=== PATIENT | male | born 1955 | race Caucasian/White ===

== ENCOUNTER → 2016-11-23 | Outpatient (CLI) | payer OTHER ==
[~2016-11-23] MED LIST: AMLO10TAB; AMLO5TAB2 PO; ATEN25TA; AUGM875T27 PO; BENA20TA2; BIAX1TAB PO; BISO5TAB5 PO; CARA1TAB2 PO; FURO40TA2; HYDR-3713 PO; ISOVUE-370 76% 100ML VIAL (Q9967) As Ordered ONE; OMEP40CA2 PO; TYLE167L PO
--- NOTE | 2016-11-23 16:05 | REP ---
CT study of the chest with IV contrast: History: Kidney malignancy. CT contrast dose: 50 mL of Isovue-370 is administered intravenously by auto injector. Comparison chest CT study 11/18/2015. CT findings: Lung window settings demonstrate mild linear scarring in the lingula and right middle lobe at the bases. There is some minimal scarring in the lower lobes as well. These findings are unchanged from the comparison study. No pulmonary nodule or mass lesion is seen. There is vascular calcification including the left coronary artery. No mediastinal mass or adenopathy is observed. Scattered normal-sized mediastinal lymph nodes are noted unchanged. No extrathoracic mass or adenopathy is seen. Bone window settings show no bony destructive lesion. There are degenerative spurs along the right anterior margin of the thoracic spine as before. Impression: No active disease. Stable bibasilar linear fibrotic changes. Signed by Eamon Díaz MD 11/23/2016 07:18 P
--- NOTE | 2016-11-23 16:13 | REP ---
CT abdomen pelvis without and with IV contrast: Without oral contrast. History: Kidney cancer. Comparison CT study is from 11/04/2015 and 11/18/2015. CT contrast dose: 50 mL of Isovue [address] findings: Preliminary digital activity aide radiograph demonstrates an unremarkable bowel gas pattern. There is a right flank hernia as before. The lung bases are clear. There are geographic areas of low density in the right lobe of the liver consistent with fatty infiltration. No focal liver mass lesion is seen. The gallbladder and pancreas are unremarkable. No adrenal lesion is seen on the left. I do not see the right adrenal. The patient is status post right nephrectomy. No recurrent nephrectomy bed mass is seen. There is a stable 12 mm lymph node just medial to the head of the pancreas unchanged. There is a left periaortic lymph node below the level of the left renal vascular pedicle that measures 11 x 20 mm today, previously 11 x 18 mm. This change is equivocal. There are two somewhat prominent periportal lymph nodes at little above this which are stable from the 2012 prior study. No definitely progressed lymph node is seen. Peripancreatic soft tissues are no longer edematous. There is an accessory splenule at this at the tail of the pancreas as before. No hydronephrosis is noted on the left. There is a cyst projecting from the periphery of the left kidney measuring 2.5 cm in diameter unchanged. This is a little larger than it was in 2012. The abdominal aorta is quite tortuous and there is a distal abdominal aortic aneurysm which measures 3.5 cm in greatest AP dimension. Previous dimension was 3.3 cm. No periaortic disease is seen. There is a left common iliac artery aneurysm again noted this measures 3.9 cm in AP dimension, previously 3.6 cm. A right common iliac artery aneurysm is seen measuring 3.0 cm in AP today, previously 2.7 cm. Small and large intestinal bowel loops are normal in the abdomen and pelvis except for left colonic diverticulosis and the small bowel loops which are herniated through the right flank hernia. No bony destructive lesion is seen. There are advanced degenerative disc changes in the lumbar spine and lumbar scoliosis again noted. Impression: 1. Status post right nephrectomy. 2. Right flank hernia with unobstructed loops of small bowel. 3. Fatty infiltration of the liver. 4. Retroperitoneal and periportal lymph nodes, one of which is very slightly more prominent today, 20 x 11 mm as opposed to 17 x 11 mm previously. 5. 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 Signed by Eamon Díaz MD 11/23/2016 07:19 P
== END ==
LOC: M RAD 10:23
PROVIDERS: ATTEND Urology
DX: K76.0 Fatty (change of) liver, not elsewhere classified (principal); I72.3 Aneurysm of iliac artery; Z90.5 Acquired absence of kidney; Z85.828 Personal history of other malignant neoplasm of skin
CPT/HCPCS: 71260; 74178; Q9967

== ENCOUNTER → 2017-01-13 | Outpatient (CLI) | payer OTHER ==
[~2017-01-13] MED LIST changes: -ISOVUE-370 76% 100ML VIAL (Q9967) As Ordered ONE
--- NOTE | 2017-01-18 09:20 | REP ---
PET/CT: HISTORY: Restaging kidney cancer. Recent abdominal CT showed a slowly enlarging left periaortic retroperitoneal node. COMPARISONS: Comparison PET/CT study is from February 14, 2015. Comparison CT of the abdomen and chest is from November 23, 2016. The patient is status post right nephrectomy. TECHNIQUE: 61 minutes following the intravenous injection of a 9.5 mCi dose of F-18 FDG, three-dimensional PET scintigraphy is acquired from the skull base to the proximal thighs. Triplanar noncontrast CT scanning is acquired through the same anatomic range for attenuation correction, and image registration with scan parameters optimized to minimize radiation exposure to the patient. PET scintigraphy and CT datasets were fused and displayed on a workstation with multiplanar and projection display capability. PET/CT FINDINGS: The left periaortic retroperitoneal lymph node seen on the CT study from November 23, 2016 shows no abnormal FDG accumulation. Maximum SUV value is 0.9. No abnormal hypermetabolic uptake is seen in any of the other stable lymph nodes in the retroperitoneum and celiac axis region of the abdomen. No abnormal hypermetabolic abdominal or pelvic uptake is seen. Aortobi-iliac aneurysm is again noted. Left renal cyst and right flank unobstructed hernia again noted. There is no abnormal hypermetabolic uptake in the liver. No abnormal hypermetabolic uptake is seen within the thorax. Head and neck soft tissues are unremarkable. No abnormal skeletal uptake is seen. IMPRESSION: No abnormal hypermetabolic uptake. CT followup is advised. Signed by Eamon Díaz MD 01/18/2017 10:54 A
== END ==
LOC: M PLARAD 09:38
PROVIDERS: ATTEND Urology
DX: Z85.528 Personal history of other malignant neoplasm of kidney (principal)
CPT/HCPCS: 78816; A9552

== ENCOUNTER → 2018-01-17 | Outpatient (CLI) | payer OTHER | LOC: M RAD 08:51 | DX: K45.8 Other specified abdominal hernia without obstruction or gangrene (principal); R93.5 Abnormal findings on diagnostic imaging of other abdominal regions, including retroperitoneum | CPT/HCPCS: 74176 ==

== ENCOUNTER 2018-12-10 05:30 | Emergency (ER) | payer OTHER ==
[~2018-12-10] VITALS: Ht 175.3 cm; Wt 123.6 kg
[~2018-12-10 05:30] MED LIST changes: -AMLO5TAB2 PO; +AMLO5TAB6 PO; -AUGM875T27 PO; +AUGM875T28 PO; -BIAX1TAB PO; +BIAX500T14 PO; -CARA1TAB2 PO; +CARA1TAB6 PO
[2018-12-10] MEDS ORDERED: PEPT262T2 PO (05:53)
[2018-12-10] MEDS ORDERED: TUMS500C PO (05:53)
[2018-12-10 06:14] LABS: BASO # 0.1 10^3/uL (0.0-0.2); BASO % 0.4 % (0.0-1.0); EOS # 0.1 10^3/uL (0.0-0.50); EOS % 0.6 % (0.0-3.0); HEMATOCRIT 48.2 % (42.0-52.0); HEMOGLOBIN 15.9 g/dl (13.5-17.5); LYMPH # 1.1 10^3/uL (1.5-4.5); LYMPH % 9.4 % (24.0-44.0); MEAN CORPUSCULAR HEMOGLOBIN 29.7 pg (27.0-33.0); MEAN CORPUSCULAR VOLUME 89.9 fl (80.0-96.0); MONO # 0.5 10^3/uL (0.0-0.8); MONO % 4.2 % (0.0-5.0); NEUTROPHILS # 10.1 10^3/uL (1.8-7.7); NEUTROPHILS % 84.9 % (36.0-66.0); PLATELET COUNT, AUTOMATED 256 10^3/uL (150-450); RED BLOOD COUNT 5.36 10^6/uL (4.30-6.10); WHITE BLOOD COUNT 11.9 10^3/uL (4.0-10.0)
[2018-12-10 06:33] LABS: ALBUMIN 3.8 GM/DL (3.2-5.2); ALT/SGPT 28 U/L (12-78); BILIRUBIN,DIRECT 0.2 MG/DL (0.0-0.2); BILIRUBIN,TOTAL 1.1 MG/DL (0.2-1.0); BLOOD UREA NITROGEN 23 MG/DL (7-18); CALCIUM LEVEL 10.7 MG/DL (8.8-10.2); CARBON DIOXIDE LEVEL 26 MEQ/L (21-32); CHLORIDE LEVEL 102 MEQ/L (98-107); CPK CREATINE PHOSPHOKINASE 102 U/L (39-308); CREATININE FOR GFR 1.55 MG/DL (0.70-1.30); GLOMERULAR FILTRATION RATE 48.8 (>49); GLUCOSE, FASTING 136 MG/DL (70-100); LIPASE 226 U/L (73-393); MB/CK RELATIVE INDEX 1.47 (< OR =4); POTASSIUM SERUM 3.9 MEQ/L (3.5-5.1); SODIUM LEVEL 138 MEQ/L (136-145); TOTAL PROTEIN 8.6 GM/DL (6.4-8.2); TROPONIN I < 0.02 NG/ML (< 0.10)
[2018-12-10] MEDS ORDERED: PANTOPRAZOLE 40MG INJ (PROTONIX) (C9113) IV ONE (06:45)
[2018-12-10] MEDS ORDERED: GASTROGRAFIN SOLUTION 30ML (Q9963) As Ordered ONE (06:46)
[2018-12-10] MEDS ORDERED: ONDANSETRON 4MG/2ML VIAL (J2405) As Ordered ONE (06:55)
[2018-12-10] MEDS: GASTROGRAFIN SOLUTION 30ML PO SCH ×3 (06:56→07:26)
[2018-12-10] MEDS ORDERED: ONDANSETRON 4MG/2ML VIAL (J2405) IV ONE (07:00)
--- NOTE | 2018-12-10 08:13 | REP ---
Clinical: Chest pain . Comparison: 10/30/2015 . Findings: The mediastinum and cardiac silhouette are stable and within normal limits for portable technique. The lung whitfield are clear without acute consolidation, effusion, or pneumothorax. Skeletal structures are intact. Impression: No acute cardiopulmonary process appreciated. Electronically Signed by Rodolfo Oshea MD 12/10/2018 08:03 A
--- NOTE | 2018-12-10 08:47 | REP ---
Clinical: Epigastric pain. Technique: Axial images from the lung bases to the pubic symphysis using oral contrast material with coronal and sagittal re-formations. Comparison: 01/17/2018 Findings: Subtle peripancreatic inflammatory stranding surrounds the pancreatic head/uncinate region and adjacent duodenum with adjacent reactive adenopathy suggesting acute pancreatitis and correlation is recommended. Liver, spleen, left adrenal gland and kidney are relatively normal. The patient appears to be status post total right nephrectomy. Cholelithiasis noted without evidence for acute cholecystitis. The enteric system is without obstruction or acute inflammatory process. Scattered colonic and sigmoid diverticula noted without acute diverticulitis. Pelvis demonstrates normal bladder and age appropriate prostate/seminal vesicles. No ascites. No free air. Stable aneurysmal dilatation of the distal abdominal aorta measuring 4.2 cm maximal diameter and bilateral iliac arteries measuring 4.2 cm diameter on the left and 3.4 cm on the right. Impression: 1. Peripancreatic stranding surrounding the pancreatic head/uncinate process with reactive adenopathy suggest acute pancreatitis. No fluid, abscess or peripancreatic pseudocyst. 2. Cholelithiasis. 3. Chronic distal abdominal aortic aneurysm and aneurysmal dilatation to the bilateral internal iliac arteries. Electronically Signed by Rodolfo Oshea MD 12/10/2018 08:39 A
--- NOTE | 2018-12-10 09:32 | ECGEPIP ---
Stationary ECG Study [facility] - ED Test Date: 2018-12-10 Pat Name: ANNE-MARIE SAWANT Department: Room: - Gender: M Primary Care Md: LUKAS : 1955 Requested By: Morgan Sommers Order Number: [id number] Reading MD: Jane Chacon Measurements Intervals [place] Rate: 84 P: -7 AL: 203 QRS: -39 QRSD: 93 T: 75 QT: 368 QTc: 437 Interpretive Statements SINUS RHYTHM MARKED LEFT AXIS DEVIATION NSTTW ABNORMALITY LEFT VENTRICULAR HYPERTROPHY AND ST-T CHANGE INCREASED RATE 10/30/15 Electronically Signed On 12-10-2018 9:32:46 EDT by Jane Chacon
--- NOTE | 2018-12-10 10:08 | REP ---
Clinical: Acute abdominal pain. Pancreatitis. Technique: Rojas scale ultrasound using curved array transducer. Findings: The liver demonstrates fatty infiltration without focal hepatic lesion identified. The pancreas is incompletely evaluated due to interposed bowel gas but visualized portions appear relatively normal. Gallbladder demonstrates multiple gallstones without wall thickening or pericholecystic fluid and no sonographic Sr's sign to suggest acute cholecystitis. Common bile duct is upper limits of normal at 7 mm diameter. The patient is known to be status post right nephrectomy. No ascites. Impression: Cholelithiasis without sonographic evidence for acute cholecystitis. Prior right nephrectomy. Fatty infiltration to the liver. Electronically Signed by Rodolfo Oshea MD 12/10/2018 10:00 A
[2018-12-10 10:37] VITALS: BP 174/108
[2018-12-13] MEDS ORDERED: ASPI-164 PO (16:39)
== END 2018-12-10 10:56 | disposition home or self-care (01) ==
LOC: M ED 05:30
DX: K85.90 Acute pancreatitis without necrosis or infection, unspecified (principal); I71.4 Abdominal aortic aneurysm, without rupture; I10 Essential (primary) hypertension; E66.9 Obesity, unspecified; K27.9 Peptic ulcer, site unspecified, unspecified as acute or chronic, without hemorrhage or perforation; K76.0 Fatty (change of) liver, not elsewhere classified; K80.20 Calculus of gallbladder without cholecystitis without obstruction; Z85.528 Personal history of other malignant neoplasm of kidney; Z79.82 Long term (current) use of aspirin; Z79.899 Other long term (current) drug therapy
CPT/HCPCS: 71045; 74176; 76705; 80048; 80076; 82550; 82553; 83690; 84484; 85025; 93005; 93041; 94760; 96374; 96375; 99285; C9113; J2405

== ENCOUNTER 2018-12-11 08:37 | Emergency (ER) | payer OTHER ==
[~2018-12-11] VITALS: Ht 175.3 cm; Wt 123.6 kg
[~2018-12-11 08:37] MED LIST changes: +PEPT262T2 PO; +TUMS500C PO
[2018-12-11 09:45] LABS: HEMATOCRIT 48.5 % (42.0-52.0); HEMOGLOBIN 15.6 g/dl (13.5-17.5); MEAN CORPUSCULAR HGB CONC 32.2 g/dl (32.0-36.5); MEAN CORPUSCULAR VOLUME 93.3 fl (80.0-96.0); PLATELET COUNT, AUTOMATED 243 10^3/uL (150-450)
[2018-12-11 10:14] LABS: ALBUMIN 3.7 GM/DL (3.2-5.2); BILIRUBIN,DIRECT 0.3 MG/DL (0.0-0.2); BILIRUBIN,TOTAL 1.9 MG/DL (0.2-1.0); CREATININE FOR GFR 2.04 MG/DL (0.70-1.30); GLOMERULAR FILTRATION RATE 35.5 (>49); POTASSIUM SERUM 4.5 MEQ/L (3.5-5.1); TOTAL PROTEIN 7.4 GM/DL (6.4-8.2)
[2018-12-11 10:54] VITALS: BP 109/69
[2018-12-13] MEDS ORDERED: ASPI-164 PO (16:39)
== END 2018-12-11 10:59 | disposition home or self-care (01) ==
LOC: M ED 08:37
DX: I71.4 Abdominal aortic aneurysm, without rupture (principal); K80.70 Calculus of gallbladder and bile duct without cholecystitis without obstruction; K85.90 Acute pancreatitis without necrosis or infection, unspecified; I10 Essential (primary) hypertension; Z79.899 Other long term (current) drug therapy; Z87.19 Personal history of other diseases of the digestive system; Z85.528 Personal history of other malignant neoplasm of kidney; Z90.5 Acquired absence of kidney

== ENCOUNTER → 2018-12-12 | Outpatient (REF) | payer OTHER ==
[~2018-12-12] MED LIST changes: +AMLO10TA5 PO; +SM A1TAB PO
== END ==
LOC: M LAB REF 12:13
PROVIDERS: ATTEND Internal Medicine
DX: R10.84 Generalized abdominal pain (principal)

== ENCOUNTER 2018-12-13 16:31 | Inpatient (IN) | payer OTHER ==
[~2018-12-13] VITALS: Ht 175.3 cm; Wt 108.0 kg
[~2018-12-13 16:31] MED LIST changes: -AMLO10TA5 PO; -SM A1TAB PO
[2018-12-13] MEDS ORDERED: SM A1TAB PO (16:39)
[2018-12-13] MEDS ORDERED: NS 1,000 ML IV ONE (17:00)
[2018-12-13 17:33] LABS: BASO # 0.1 10^3/uL (0.0-0.2); BASO % 0.5 % (0.0-1.0); EOS # 0.1 10^3/uL (0.0-0.50); EOS % 0.8 % (0.0-3.0); HEMATOCRIT 43.2 % (42.0-52.0); LYMPH # 1.4 10^3/uL (1.5-4.5); LYMPH % 10.7 % (24.0-44.0); MEAN CORPUSCULAR HEMOGLOBIN 29.9 pg (27.0-33.0); MEAN CORPUSCULAR HGB CONC 32.4 g/dl (32.0-36.5); MEAN CORPUSCULAR VOLUME 92.3 fl (80.0-96.0); MONO # 1.1 10^3/uL (0.0-0.8); MONO % 8.3 % (0.0-5.0); NEUTROPHILS # 10.1 10^3/uL (1.8-7.7); NEUTROPHILS % 79.2 % (36.0-66.0); PLATELET COUNT, AUTOMATED 216 10^3/uL (150-450); RED BLOOD COUNT 4.68 10^6/uL (4.30-6.10); WHITE BLOOD COUNT 12.8 10^3/uL (4.0-10.0)
[2018-12-13 17:53] LABS: ALBUMIN 3.6 GM/DL (3.2-5.2); BILIRUBIN,DIRECT 0.4 MG/DL (0.0-0.2); BILIRUBIN,TOTAL 1.7 MG/DL (0.2-1.0); CALCIUM LEVEL 9.3 MG/DL (8.8-10.2); CREATININE FOR GFR 1.88 MG/DL (0.70-1.30); TOTAL PROTEIN 7.3 GM/DL (6.4-8.2)
[2018-12-13 17:54] LABS: INR 1.09; PROTHROMBIN TIME 14.2 SECONDS (12.1-14.4)
[2018-12-13 17:55] LABS: PARTIAL THROMBOPLASTIN TIME 28.6 SECONDS (25.4-37.6)
[2018-12-13] MEDS ORDERED: AMLO10TA5 PO (18:38)
[2018-12-13] MEDS ORDERED: METOPROLOL 5 MG/5 ML VIAL IV PRN (20:45)
--- NOTE | 2018-12-13 20:58 | HPEPDOC ---
[facility] Medical History & Physical Date of Admission Dec 13, 2018 Primary Care Physician: JESSIE ZHU DO History and Physical CHIEF COMPLAINT: Abdominal pain HISTORY OF PRESENT ILLNESS: Patient is 63-year-old male with past medical history of hypertension and renal cell carcinoma status post right nephrectomy sent in from PMD office Dr. Zhu for persistent pancreatitis. Patient has been going to the ER several times in the past couple of days for abdominal pain and sent home. Pain started about last and has been intermittent since then associated with nausea and vomiting. He describes pain as generalized at different areas of abdomen. Patient does have a history of heavy drinking in the past but seldomly drink now since his nephrectomy. No history of previous known pancreatitis. He denies any fever, chills or any other complaints. PMD expressed concerned for elevated Cr due to having only one kidney. Cr trending down from previous BMP from several days prior. PAST MEDICAL HISTORY: 1. Kidney cancer status post right nephrectomy. 2. Retention. 3. Lower extremity aneurysm status post multiple surgeries. PAST SURGICAL HISTORY: 1. Lower extremity aneurysm surgeries. 2. Right nephrectomy. 3. Abdominal hernia repair. SOCIAL HISTORY: Previous heavy drinker. Social alcohol consumption now, denies tobacco or illicit drug use. FAMILY HISTORY: Father had prostate cancer Mother had breast cancer ALLERGIES: Please see below. REVIEW OF SYSTEMS: General: Denies fever and chills Eyes: Denies visual changes/pain HENT: Denies hearing changes, discharge, sore throat Cardiovascular: denies chest pain, palpitations Pulmonary: no cough, dyspnea, wheezing GI: + nausea, generalized abdominal pain. : denies dysuria, urinary frequency Neuro: denies numbness or weakness HOME MEDICATIONS: Please see below. PHYSICAL EXAMINATION: General: No acute distress, Alert Eyes: Normal sclera, EOMI, LO HENT: Atraumatic, neck supple, moist mucous membranes Cardiovascular: Normal rate, normal rhythm. No murmurs appreciated. Pulmonary: Clear to auscultation b/l, no wheezing GI: Soft, mild generalized tenderness. No rebound tenderness. Skin: Warm and dry Neuro: CN grossly intact. No focal deficits. Strengths equal b/l. Psych: oriented x 3 LABORATORY DATA: See below. IMAGING: CT report brought in (12/10/18)- 1. Peripancreatic stranding surrounding the pancreatic head suggestive of acute pancreatitis. 2. Cholelithiasis 3. Chronic distal abdominal aortic aneurysm and aneurysmal dilatation to the bilateral internal iliac arteries. GB US (12/10)- 1. Cholelithiasis without sonographic evidence for acute cholecystitis Prior right nephrectomy MICROBIOLOGY: Please see below. ASSESSMENT: 1. Acute pancreatitis 2. Kidney cancer unknown type s/p R. nephrectomy 3. Chronic AAA 4. HTN 5. KAMALJIT PLAN: - IVF support. Pain control. - Zofran IV for nausea. - Keep NPO for now as patient still present with associated nausea. Reassess in AM. - No significant lipase elevation. Symptomatic control, failed outpatient treatment. - Monitor kidney function. Cr elevated but trending down from previous value. - Resume home medications once patient is no longer NPO. Patient is high risk due to Pancreatitis with KAMALJIT and multiple comorbidities. Estimated length of stay 2-3 days with expected disposition to home. Vital Signs Vital Signs Date Time Temp Pulse Resp B/P (MAP) Pulse Ox O2 Delivery O2 Flow Rate FiO2 12/13/18 19:15 63 18 128/78 (95) 98 Room Air 12/13/18 16:31 97.8 Laboratory Data Labs 24H Laboratory Tests 2 12/13/18 17:22: Immature Granulocyte % (Auto) 0.5, White Blood Count 12.8H, Red Blood Count 4.68, Hemoglobin 14.0, Hematocrit 43.2, Mean Corpuscular Volume 92.3, Mean Corpuscular Hemoglobin 29.9, Mean Corpuscular Hemoglobin Concent 32.4, Red Cell Distribution Width 15.1H, Platelet Count 216, Neutrophils (%) (Auto) 79.2H, Lymphocytes (%) (Auto) 10.7L, Monocytes (%) (Auto) 8.3H, Eosinophils (%) (Auto) 0.8, Basophils (%) (Auto) 0.5, Neutrophils # (Auto) 10.1H, Lymphocytes # (Auto) 1.4L, Monocytes # (Auto) 1.1H, Eosinophils # (Auto) 0.1, Basophils # (Auto) 0.1, Nucleated Red Blood Cells % (auto) 0.0, Prothrombin Time 14.2, Prothromb Time International Ratio 1.09, Activated Partial Thromboplast Time 28.6, Anion Gap 7L, Glomerular Filtration Rate 39.0L, Lactic Acid Level 1.1, Calcium Level 9.3, Aspartate Amino Transf (AST/SGOT) 18, Alanine Aminotransferase (ALT/SGPT) 20, Alkaline Phosphatase 70, Total Bilirubin 1.7H, Direct Bilirubin 0.4H, Total Protein 7.3, Albumin 3.6, Albumin/Globulin Ratio 0.97L, Lipase 216 CBC/BMP Laboratory Tests 12/13/18 17:22 Red Blood Count 4.68, Mean Corpuscular Volume 92.3, Mean Corpuscular Hemoglobin 29.9, Mean Corpuscular Hemoglobin Concent 32.4, Red Cell Distribution Width 15.1 H, Neutrophils (%) (Auto) 79.2 H, Lymphocytes (%) (Auto) 10.7 L, Monocytes (%) (Auto) 8.3 H, Eosinophils (%) (Auto) 0.8, Basophils (%) (Auto) 0.5, Neutrophils # (Auto) 10.1 H, Lymphocytes # (Auto) 1.4 L, Monocytes # (Auto) 1.1 H, Eosinophils # (Auto) 0.1, Basophils # (Auto) 0.1 Home Medications Scheduled (Sm Aspirin Adult Low Stre) 81 Mg Tab, 81 MG PO DAILY Amlodipine Besylate (Amlodipine Besylate) 10 Mg Tab, 10 MG PO DAILY Bisoprolol Fumarate (Bisoprolol Fumarate) 5 Mg Tab, 5 MG PO DAILY Scheduled PRN Bismuth Salicylate (Pepto Bismol) 262 Mg Tab, 2 TAB PO Q4H PRN for INDIGESTION Calcium Carbonate (Tums) 500 Mg Chw, 2 TAB PO QID PRN for INDIGESTION Allergies Coded Allergies: No Known Allergies (Verified , 03/21/09) JONNATHAN KING MD Dec 13, 2018 20:58
[2018-12-13] MEDS: NS 1,000 ML IV SCH (23:21)
[2018-12-13] MEDS: ONDANSETRON 4MG/2ML VIAL (J2405) IV PRN (23:22)
[2018-12-13] MEDS: MORPHINE 4 MG/ML 1ML VIAL/SYRINGE (J2270) IV PRN (23:22)
[2018-12-14] MEDS: NS 1,000 ML IV SCH ×4 (01:24→16:45)
[2018-12-14 04:00] VITALS: BP_SYST 146; BP_SYST 163; BP_DIAS 93; BP_DIAS 98
[2018-12-14] MEDS: MORPHINE 4 MG/ML 1ML VIAL/SYRINGE (J2270) IV PRN ×3 (04:37→16:46)
[2018-12-14 05:18] LABS: HEMATOCRIT 44.4 % (42.0-52.0); HEMOGLOBIN 14.4 g/dl (13.5-17.5); MEAN CORPUSCULAR HEMOGLOBIN 30.3 pg (27.0-33.0); MEAN CORPUSCULAR HGB CONC 32.4 g/dl (32.0-36.5); MEAN CORPUSCULAR VOLUME 93.5 fl (80.0-96.0); PLATELET COUNT, AUTOMATED 200 10^3/uL (150-450); RED BLOOD COUNT 4.75 10^6/uL (4.30-6.10); WHITE BLOOD COUNT 11.5 10^3/uL (4.0-10.0)
[2018-12-14 05:36] LABS: CALCIUM LEVEL 8.5 MG/DL (8.8-10.2); CREATININE FOR GFR 1.67 MG/DL (0.70-1.30); GLOMERULAR FILTRATION RATE 44.7 (>49)
[2018-12-14 07:44] VITALS: BP 166/85
[2018-12-14] MEDS: ONDANSETRON 4MG/2ML VIAL (J2405) IV PRN ×2 (10:35→16:45)
[2018-12-14 12:00] VITALS: BP 132/90
--- NOTE | 2018-12-14 13:50 | IPNPDOC ---
Date Seen The patient was seen on 12/14/18. Progress Note SUBJECTIVE: Patient tells me that he continues to experience abdominal pain is not having any further nausea or vomiting he tells me he is not hungry and is not interested in eating any food at this time OBJECTIVE PHYSICAL EXAMINATION: VITAL SIGNS: Please see below. GENERAL: Very pleasant morbidly obese man laying in bed at a 30 angle he does not appear to be in any acute distress HEENT: Cranial nerves II through XII are grossly intact CARDIOVASCULAR: S1-S2 regular. RESPIRATORY: Clear to auscultation bilaterally. ABDOMINAL: Morbidly obese bowel sounds are present abdomen is soft there's epigastric tenderness to light palpation EXTREMITIES: No clubbing cyanosis or edema LABORATORY DATA, IMAGING STUDIES, MICROBIOLOGY: Please see below. DVT prophylaxis ordered?: Teds ASSESSMENT AND PLAN: This is a 63-year-old man with pancreatitis. PROBLEMS: 1. Pancreatitis: Patient clinically presents with suspicion for it he was diagnosed by his PMD and referred to the emergency room there is concern for dehydration and acute kidney injury in the setting of his history of renal cell cancer with nephrectomy. At this time the patient is still having pain he'll remain nothing by mouth continued on IV fluids and pain control and monitor closely for the next 24 hours I suspect may be able to try clear liquids tomorrow morning based on how he is feeling. There does not appear to be any particular clear etiology he is a nondrinker at the present time but has a history of heavy alcohol abuse non tobacco user no recent viral illnesses no new medications, he did not have significantly elevated triglycerides. He did exhibit some cholelithiasis on ultrasound this past week this is the only potential etiology that I can discern he may benefit from an outpatient elective cholecystectomy. 2. Acute kidney injury: Renal function continues to improve with IV fluids continue to monitor daily. He has a history of right nephrectomy. 3. Leukocytosis: Likely secondary to his pancreatitis. 4. Hypertension: Patient is normally on bisoprolol and aspirin 81 mg at home could consider restarting these along with amlodipine if he becomes hypertensive for potential time of discharge DISPOSITION: Pending clinical improvement. VS, I&O, 24H, Fishbone Vital Signs/I&O Vital Signs Date Time Temp Pulse Resp B/P (MAP) Pulse Ox O2 Delivery O2 Flow Rate FiO2 12/14/18 12:00 97.6 60 18 132/90 (104) 97 12/14/18 02:31 Room Air I&O- Last 24 Hours up to 6 AM 12/14/18 06:00 Intake Total 0 ml Output Total 0 ml Balance 0 ml Laboratory Data 24H LABS Laboratory Tests 2 12/13/18 17:22: Immature Granulocyte % (Auto) 0.5, White Blood Count 12.8H, Red Blood Count 4.68, Hemoglobin 14.0, Hematocrit 43.2, Mean Corpuscular Volume 92.3, Mean Corpuscular Hemoglobin 29.9, Mean Corpuscular Hemoglobin Concent 32.4, Red Cell Distribution Width 15.1H, Platelet Count 216, Neutrophils (%) (Auto) 79.2H, Lymphocytes (%) (Auto) 10.7L, Monocytes (%) (Auto) 8.3H, Eosinophils (%) (Auto) 0.8, Basophils (%) (Auto) 0.5, Neutrophils # (Auto) 10.1H, Lymphocytes # (Auto) 1.4L, Monocytes # (Auto) 1.1H, Eosinophils # (Auto) 0.1, Basophils # (Auto) 0.1, Nucleated Red Blood Cells % (auto) 0.0, Prothrombin Time 14.2, Prothromb Time International Ratio 1.09, Activated Partial Thromboplast Time 28.6, Anion Gap 7L, Glomerular Filtration Rate 39.0L, Lactic Acid Level 1.1, Calcium Level 9.3, Aspartate Amino Transf (AST/SGOT) 18, Alanine Aminotransferase (ALT/SGPT) 20, Alkaline Phosphatase 70, Total Bilirubin 1.7H, Direct Bilirubin 0.4H, Total Protein 7.3, Albumin 3.6, Albumin/Globulin Ratio 0.97L, Lipase 216 12/14/18 04:46: Nucleated Red Blood Cells % (auto) 0.0, Anion Gap 6L, Glomerular Filtration Rate 44.7L, Calcium Level 8.5L, Blood Urea Nitrogen 22H, Creatinine 1.67H, Sodium Level 140, Potassium Level 4.0, Chloride Level 109H, Carbon Dioxide Level 25, Triglycerides Level 98 CBC/BMP Laboratory Tests 12/13/18 17:22 Red Blood Count 4.68, Mean Corpuscular Volume 92.3, Mean Corpuscular Hemoglobin 29.9, Mean Corpuscular Hemoglobin Concent 32.4, Red Cell Distribution Width 15.1 H, Neutrophils (%) (Auto) 79.2 H, Lymphocytes (%) (Auto) 10.7 L, Monocytes (%) (Auto) 8.3 H, Eosinophils (%) (Auto) 0.8, Basophils (%) (Auto) 0.5, Neutrophils # (Auto) 10.1 H, Lymphocytes # (Auto) 1.4 L, Monocytes # (Auto) 1.1 H, Eosinophils # (Auto) 0.1, Basophils # (Auto) 0.1 12/14/18 04:46 Red Blood Count 4.75, Mean Corpuscular Volume 93.5, Mean Corpuscular Hemoglobin 30.3, Mean Corpuscular Hemoglobin Concent 32.4, Red Cell Distribution Width 15.1 H, Calcium Level 8.5 L EULOGIO MCKEE MD Dec 14, 2018 13:50
[2018-12-14] MEDS ORDERED: PERCOCET 5MG/325MG TAB PO PRN ×2 (16:30)
[2018-12-14 20:00] VITALS: BP 164/88
[2018-12-14] MEDS: HEPARIN SOD (PORCINE) 5000 UNITS/ML VIAL SQ SCH (20:44)
[2018-12-15] MEDS: NS 1,000 ML IV SCH (02:21)
[2018-12-15 04:00] VITALS: BP 151/98
[2018-12-15 05:42] LABS: HEMOGLOBIN 12.7 g/dl (13.5-17.5); MEAN CORPUSCULAR HEMOGLOBIN 29.4 pg (27.0-33.0); MEAN CORPUSCULAR HGB CONC 31.8 g/dl (32.0-36.5); MEAN CORPUSCULAR VOLUME 92.6 fl (80.0-96.0); PLATELET COUNT, AUTOMATED 174 10^3/uL (150-450); RED BLOOD COUNT 4.32 10^6/uL (4.30-6.10); WHITE BLOOD COUNT 10.5 10^3/uL (4.0-10.0)
[2018-12-15 06:04] LABS: CALCIUM LEVEL 7.9 MG/DL (8.8-10.2); CREATININE FOR GFR 1.38 MG/DL (0.70-1.30); GLOMERULAR FILTRATION RATE 55.8 (>49); POTASSIUM SERUM 3.8 MEQ/L (3.5-5.1)
[2018-12-15] MEDS: HEPARIN SOD (PORCINE) 5000 UNITS/ML VIAL SQ SCH (09:32)
[2018-12-15 12:00] VITALS: BP 126/79
--- NOTE | 2018-12-15 20:11 | DSES ---
DATE OF ADMISSION: 12/13/2018 DATE OF DISCHARGE: 12/15/2018 DISCHARGE DIAGNOSIS: Pancreatitis. SECONDARY DIAGNOSES: Acute kidney injury. Leukocytosis. Hypertension. HOSPITAL COURSE: The patient is a 63-year-old man with a history of a nephrectomy, who had reportedly been diagnosed with pancreatitis by Dr. Rashmi Xavier in the outpatient setting. He had been trying to treat it supportively at home; however, he had presented to emergency room and was found to have a rising creatinine. It was suggested that he present to emergency room once again for admission with concern for acute kidney injury. The patient was found to have a creatinine of 1.8. He was admitted to the hospitalist service, started n intravenous (IV) fluids, kept nothing by mouth (n.p.o.). He did have significant abdominal pain in the epigastric region, radiating around to his back, worsened significantly by food. I did complete a workup to attempt to elucidate an etiology for his pain. His triglyceride level was not significantly elevated. He denies any alcoholic beverage intake or tobacco history, recent upper respiratory infection (URI) illnesses. He did have a gallbladder ultrasound on 12/10/2018 that did reveal cholelithiasis without cholecystitis. He did improve with nothing by mouth and pain control and IV fluids. On the morning of discharge, his pain had completely resolved, and he was requiring no pain medication. He was started on a clear liquid diet, which he tolerated and was advanced to a regular diet, which he also tolerated. At this time, he is medically stable for discharge home. SUBJECTIVE: Today the patient reports he is feeling well. He has no specific complaints at this time. OBJECTIVE: VITAL SIGNS: Temperature 98.4, pulse 61, respiratory rate 18, blood pressure 151/98, oxygen saturation 97% on room air. GENERAL: He is a pleasant obese man sitting in a chair. He does not appear to be in any acute distress. He is awake, alert, oriented times three. HEENT: Cranial nerves II-XII are grossly intact. He has moist mucous membranes. No elevation of central venous pressure (CVP). CARDIOVASCULAR EXAM: S1, S2, regular. RESPIRATORY EXAM: Clear. ABDOMINAL EXAM: Obese, bowel sounds are present. The abdomen is soft and nontender even to deep palpation. EXTREMITIES: There is no clubbing, cyanosis, or edema. LABORATORY STUDIES: Today WBC 10.5, hemoglobin 12.7, platelet count 174. Chemistry panel: Sodium 141, potassium 3.8, chloride 110, bicarbonate 24, BUN 21, creatinine 1.3. No new microbiology or imaging. ASSESSMENT AND PLAN: This is a 63-year-old man with pancreatitis. Problems: 1. Pancreatitis, resolving. My suspicion is that this may be gallstone pancreatitis; however, there is no other clear etiology. Could consider an outpatient referral to general surgery for evaluation for laparoscopic elective cholecystectomy. It does appear to be resolved; he is tolerating a regular diet at this time. There are no suspicious new medications, no elevated triglycerides, no alcohol or tobacco history, or recent URI illnesses. 2. Acute kidney injury. The patient has a history of nephrectomy and has a single kidney. His renal function continues to improve on IV fluids. Now that he is tolerating by mouth (p.o.), I will discontinue IV fluids. He is medically stable for discharge home. His renal function is approaching baseline. 3. Leukocytosis. Could be secondary to pancreatitis. This does appear to be resolving as well. 4. Hypertension. He is normally on bisoprolol, as well as amlodipine, which were held during this hospitalization. And as he has been rehydrated and his blood pressures have improved, I will resume these on discharge. 5. Indigestion. Continue with TUMs as needed, as well as Pepto Bismol. DISPOSITION: The patient is being discharged to home. He is independent of his ADLs. His clinical symptoms have resolved. He is at his functional baseline. He is to followup with his primary care provider (PCP) in 7 days and consider outpatient general surgery referral. Activity and diet are as tolerated. He has been advised to return to the emergency room (ER) if symptoms worsen. MEDICATIONS AT THE TIME OF DISCHARGE: - amlodipine 10 mg daily - Pepto Bismol two tablets every 4 hours as needed for indigestion - bisoprolol fumarate 5 mg daily - calcium carbonate 1000 mg four times daily as needed for indigestion - aspirin 81 mg daily Greater than 30 minutes spent organizing disposition.
== END 2018-12-15 17:34 | disposition home or self-care (01) | DRG 439 ==
LOC: M ED 16:31 → M ED INP 20:16 → M PCU 12-14 02:52
PROVIDERS: ADMIT Student in an Organized Health Care Education/Training Program; ATTEND Internal Medicine
DX: K86.1 Other chronic pancreatitis (principal); N17.9 Acute kidney failure, unspecified; D72.829 Elevated white blood cell count, unspecified; I10 Essential (primary) hypertension; Z85.828 Personal history of other malignant neoplasm of skin; I71.4 Abdominal aortic aneurysm, without rupture; Z79.82 Long term (current) use of aspirin; Z79.899 Other long term (current) drug therapy

== ENCOUNTER 2018-12-22 15:35 | Inpatient (IN) | payer OTHER ==
[~2018-12-22] VITALS: Ht 175.3 cm; Wt 120.4 kg
[2018-12-22] MEDS: amLODIPine 10 MG TAB PO SCH (09:00)
[2018-12-22] MEDS: BISOPROLOL FUMARATE 5 MG TAB PO SCH (09:00)
[~2018-12-22 15:35] MED LIST changes: +AMLO10TA5 PO; +ASPI-164 PO
[2018-12-22] MEDS ORDERED: ONDANSETRON 4MG/2ML VIAL (J2405) IV ONE (16:15)
[2018-12-22] MEDS ORDERED: NS 1,000 ML IV ONE ×2 (16:15→18:15)
[2018-12-22] MEDS ORDERED: MORPHINE 4 MG/ML 1ML VIAL/SYRINGE (J2270) IV ONE (16:15)
[2018-12-22 16:31] LABS: BASO # 0.1 10^3/uL (0.0-0.2); BASO % 0.6 % (0.0-1.0); EOS # 0.1 10^3/uL (0.0-0.50); EOS % 1.4 % (0.0-3.0); HEMATOCRIT 37.6 % (42.0-52.0); HEMOGLOBIN 12.3 g/dl (13.5-17.5); LYMPH # 1.6 10^3/uL (1.5-4.5); LYMPH % 16.5 % (24.0-44.0); MEAN CORPUSCULAR HGB CONC 32.7 g/dl (32.0-36.5); MEAN CORPUSCULAR VOLUME 91.7 fl (80.0-96.0); MONO # 0.7 10^3/uL (0.0-0.8); MONO % 6.9 % (0.0-5.0); NEUTROPHILS # 7.2 10^3/uL (1.8-7.7); NEUTROPHILS % 74.1 % (36.0-66.0); PLATELET COUNT, AUTOMATED 376 10^3/uL (150-450); WHITE BLOOD COUNT 9.8 10^3/uL (4.0-10.0)
[2018-12-22 16:57] LABS: BILIRUBIN,DIRECT 0.2 MG/DL (0.0-0.2); BILIRUBIN,TOTAL 0.8 MG/DL (0.2-1.0); CALCIUM LEVEL 9.2 MG/DL (8.8-10.2); CREATININE FOR GFR 1.86 MG/DL (0.70-1.30); GLOMERULAR FILTRATION RATE 39.5 (>49); MB/CK RELATIVE INDEX 2.55 (< OR =4); POTASSIUM SERUM 4.2 MEQ/L (3.5-5.1); TOTAL PROTEIN 7.1 GM/DL (6.4-8.2); TROPONIN I 0.02 NG/ML (< 0.10)
--- NOTE | 2018-12-22 17:34 | REP ---
CT of the abdomen and pelvis without IV or bowel contrast: Comparison is 12/10/2018. The visualized lung whit[place] are unremarkable. The unenhanced hepatic parenchyma is homogeneous. Gallbladder calculi are again identified, unchanged. The gallbladder is otherwise unremarkable. There is fat stranding adjacent to the head and uncinate process of the pancreas as previously and peripancreatic lymph nodes as previously. These findings are consistent with pancreatitis and are unchanged. There is no pseudocyst. No pancreatic duct dilatation. The pancreas is otherwise unremarkable. There is no ascites. There are no pleural effusions. The spleen is normal size and unremarkable. There is no right kidney. I note the patient has clinical history of renal carcinoma and a likely has a right nephrectomy. There is no identifiable right adrenal. The left adrenal and left kidney are unremarkable except for a renal cortical cyst at the lower pole. This is unchanged. There is an abdominal aortic aneurysm measuring 4.7 cm transverse diameter. Just above the bifurcation. This is not significantly changed. There is no periaortic hematoma. There are bilateral iliac artery aneurysms as previously. There are multiple diverticula in the descending colon and sigmoid colon as previously. There is no CT evidence of acute diverticulitis. Some of these diverticuli contain opaque intraluminal material. The appendix is unremarkable. The bladder is unremarkable. There is no ascites or adenopathy. Impression: Parapancreatic stranding and peripancreatic lymph nodes, similar to the prior study, compatible with pancreatitis. Cholelithiasis. Gallbladder otherwise unremarkable. This is unchanged. Abdominal aortic aneurysm. The bilateral iliac artery aneurysms, not significantly changed. Diverticulosis without diverticulitis. No significant change from the comparison study. Electronically Signed by Enoc Solomon MD 12/22/2018 05:25 P
[2018-12-22] MEDS ORDERED: CALCIUM CARBONATE 500 MG CHEW U/D PO PRN (19:15)
[2018-12-22] MEDS ORDERED: MORPHINE 4 MG/ML 1ML VIAL/SYRINGE (J2270) IV PRN ×2 (19:30)
[2018-12-22] MEDS: NS 1,000 ML IV SCH ×2 (19:55→22:16)
--- NOTE | 2018-12-22 19:58 | HPE ---
DATE OF ADMISSION: 12/22/2018 CHIEF COMPLAINT: Abdominal pain. HISTORY OF PRESENT ILLNESS: The patient is a 63-year-old man who is well known to me who was recently admitted on 12/13/2018 and discharged 12/15/2018, at that time he was referred by Rashmi Xavier his PCP for abdominal pain. He had been diagnosed in the outpatient setting as pancreatitis with dehydration which he was advised to present to the emergency room. He was treated with IV fluids, normal saline and keep nothing by mouth and his symptoms did resolve. His workup for pancreatitis was fairly unimpressive other than cholelithiasis. He was able to tolerate a regular diet and requested discharge home. He tells me since his discharge home he was doing quite well for several days feeling great and was at his usual however over the last several days he once again had recurrence of his abdominal pain prompting him to have no appetite. He denies any nausea or vomiting at this time or changes in bowel habits. No fevers, chills. No changes in his medications. PAST MEDICAL HISTORY: Renal cancer status-post right nephrectomy, lower extremity aneurysm status-post numerous surgeries. PAST SURGICAL HISTORY: Lower extremity aneurysm and several surgeries related to it, right nephrectomy, abdominal hernia repair. SOCIAL HISTORY: He used to be a heavy drinker in the past but denies any recent alcoholic beverages. No tobacco or illicit drug use. FAMILY HISTORY: Father had prostate cancer and mother had breast cancer. ALLERGIES: No known drug allergies. REVIEW OF SYSTEMS: Negative except in the HPI. HOME MEDICATIONS: Tums 1 gram four times a day as needed for indigestion, aspirin 81 mg daily, Pepto-Bismol 265 2 tablets every 4 hours as needed for indigestion, amlodipine 10 mg daily, bisoprolol 5 mg daily. PHYSICAL EXAMINATION: Temperature 96, heart rate 95, respiratory rate 20, blood pressure 130/90, oxygen saturation 100% on room air. GENERAL: He is a very pleasant elderly obese man lying flat on the stretcher. She is accompanied by his . The patient does not appear to be in any acute distress what so ever. HEENT: Cranial nerves II through XII are grossly intact. He appears mildly pale. He has moist mucous membranes and no elevation of CVP. CARDIOVASCULAR: S1, S2 regular. RESPIRATORY EXAM: Clear. ABDOMINAL EXAM: Benign. He has some epigastric tenderness. EXTREMITIES: No clubbing, cyanosis or edema. LABORATORY: WBC 9.8, hemoglobin 12.3, platelet count 376, chemistry panel sodium 138, potassium 4.2, chloride 106, bicarbonate 23, BUN 38, creatinine 1.8. When he was discharged his creatinine was 1.3. Lactic acid 1.8, liver function rest is fairly unremarkable as is the lipase. IMAGING: The patient had a CT scan of the abdomen and pelvis today which revealed peripancreatic stranding and peripancreatic lymph nodes, stable compatible with pancreatitis, cholelithiasis. Gallbladder was unremarkable. Abdominal aortic aneurysm and bilateral iliac artery aneurysms no changes. Diverticulosis. ASSESSMENT AND PLAN: This is a 63-year-old man with current abdominal pain. PROBLEMS: 1. Recurrent abdominal pain. His clinical history on his last admission is suspicious for pancreatitis however given it recurrent nature and a normal lipase, it is unclear to me this is definitely the etiology. I will treat him on the med-surg floor, keep him nothing by mouth, IV fluids as well as IV pain medication. I will check an MRI of the abdomen to better evaluate the anatomy of his pancreas. I have spoke with Dr. Edmondson of general surgery who the patient tells me he has seen in the past and have him evaluate the patient's abdomen as well. 2. Gastroesophageal reflux disease. Continue with Tums as needed. 3. Hypertension. Continue with amlodipine and bisoprolol with holding parameters. We will hold his home aspirin for now. 4. DVT prophylaxis. We will place the patient on Heparin twice a day. He is ambulating. 5. Acute kidney injury secondary to dehydration. We will monitor. Likely will get better with IV fluids as it has in the past.
--- NOTE | 2018-12-22 20:20 | ECGEPIP ---
Stationary ECG Study [facility] - ED Test Date: 2018-12-22 Pat Name: ANNE-MARIE SAWANT Department: Room: - Gender: M Mat Weaver: kurtis : 1955 Requested By: PHILIPP THORNTON PA-C Order Number: [id number] Reading MD: Ha Lebron Measurements Intervals [place] Rate: 70 P: 93 NV: 204 QRS: -7 QRSD: 90 T: 49 QT: 381 QTc: 413 Interpretive Statements SINUS RHYTHM Borderline first degree av block Change in axis and subtle ST-T wave changes since tracing done 12-10-18 Electronically Signed On 12-22-2018 20:20:05 EDT by Ha Lebron
[2018-12-22 20:49] LABS: AMPHETAMINES LEVEL URINE NEGATIVE (NEGATIVE); BARBITURATES URINE NEGATIVE (NEGATIVE); BENZODIAZEPINES URINE NEGATIVE (NEGATIVE); CANNABINOIDS URINE POSITIVE (NEGATIVE); COCAINE METABOLITE URINE NEGATIVE (NEGATIVE); METHADONE URINE NEGATIVE (NEGATIVE); OPIATES URINE POSITIVE (NEGATIVE); PHENCYCLIDINE URINE NEGATIVE (NEGATIVE)
[2018-12-22 20:58] VITALS: BP 150/95
[2018-12-22] MEDS: HEPARIN SOD (PORCINE) 5000 UNITS/ML VIAL SQ SCH (22:17)
[2018-12-22 22:46] LABS: C REACTIVE PROTEIN QUANTITATIV 6.43 MG/DL (0.00-0.30)
[2018-12-23 06:00] VITALS: BP 103/66
[2018-12-23 06:48] LABS: CALCIUM LEVEL 8.1 MG/DL (8.8-10.2); CREATININE FOR GFR 1.73 MG/DL (0.70-1.30); POTASSIUM SERUM 4.4 MEQ/L (3.5-5.1)
[2018-12-23 07:08] LABS: HEMATOCRIT 31.6 % (42.0-52.0); MEAN CORPUSCULAR HGB CONC 31.6 g/dl (32.0-36.5); MEAN CORPUSCULAR VOLUME 94.9 fl (80.0-96.0); PLATELET COUNT, AUTOMATED 315 10^3/uL (150-450); RED BLOOD COUNT 3.33 10^6/uL (4.30-6.10); WHITE BLOOD COUNT 7.7 10^3/uL (4.0-10.0)
[2018-12-23] MEDS: BISOPROLOL FUMARATE 5 MG TAB PO SCH (08:46)
[2018-12-23] MEDS: HEPARIN SOD (PORCINE) 5000 UNITS/ML VIAL SQ SCH ×2 (08:46→20:32)
[2018-12-23] MEDS: amLODIPine 10 MG TAB PO SCH (08:46)
[2018-12-23] MEDS: SUCRALFATE 1 GM TAB PO SCH ×2 (08:46→20:32)
[2018-12-23] MEDS ORDERED: PANTOPRAZOLE 40MG TAB (PROTONIX) PO SCH (09:00)
--- NOTE | 2018-12-23 09:19 | CR.PDOC ---
General Surgery Consultation Date of Consultation 12/23/18 History and Physical CONSULT REPORT FOR: Xavier Wick MD (hospitalist service) REASON FOR CONSULTATION: pancreatitis HISTORY OF PRESENT ILLNESS: I'm being asked to come and evaluate Mr. Enoc Blackburn during this admission to the hospital for his abdominal pain presumed to be from recurrent versus subacute pancreatitis which may be related to his gallstones. Patient was previously admitted to the hospital from December 13 12/15/2018 for epigastric pain, left upper quadrant discomfort. He was found to have some mildly elevated lipase on evaluation in the emergency room along with findings of gallstones on abdominal ultrasound. He was treated with bowel rest with improvement of his symptoms. He was tried on solid meals which she tolerated and subsequently was discharged home on 12/15/2018. Patient stated hold for about 5 days. The day following discharge he still feels well but was not having much of an appetite. The following 2 days he started to gradually developed the same type of discomfort along with some episodes of nausea, bloating. The symptoms persisted and mildly worsened prompting him to return to the emergency room. In the emergency room he is evaluated with CT abdomen and pelvis showing persistent inflammation around the head of pancreas. His lipase a lso has mildly elevated. He was admitted for presumed recurrent or possible subacute course of his pancreatitis. This was presumed secondary to his gallstones and thus I was asked to evaluate him to consider possible cholecystectomy during this admission. Looking back at his previous history, I I met him back in 2016 when he presented almost the same symptoms and was found to have probably contained perforation of duodenal ulcer. He was treated nonoperatively and was placed on a PPI and Carafate with improvement of his symptoms. He followed up briefly with me in the clinic and we are planning to do an upper endoscopy but patient canceled the procedure so we never were able to confirm healing of the ulcer though he tells me he has been asymptomatic for the past 3 years. It is not clear how long he has been on a PPI as he currently is no longer on this medication. He also has had a prior history of right nephrectomy for renal cell cancer and a subsequent repair of the right flank hernia in 2016. He denies any ongoing unexplained weight loss. He follows up with oncology for his cancer surveillance. PAST MEDICAL HISTORY: 1. History of renal Cell cancer status post right radical nephrectomy 2. History of right flank hernia status post hernia repair with mesh 3. Hypertension hypertension 4. Coronary artery disease 5. Popliteal artery aneurysm . PAST SURGICAL HISTORY: INCLUDES: 1. . PREVIOUS ANESTHESIA REACTIONS: ALLERGIES: Please see below. FAMILY HISTORY: . HOME MEDICATIONS: Please see below. REVIEW OF SYSTEMS: GENERAL: [Denies chills, reports weight gain, reports feeling febrile yesterday]. HEENT: [Denies blurred vision and double vision. Denies ear symptoms. Denies hoarseness]. NECK: Denies any neck pain]. CARDIOVASCULAR: [Denies chest pain and palpitations]. MUSCULOSKELETAL: [Denies arthralgias, back pain and thrombophlebitis]. SKIN: [Denies rash]. NEUROLOGIC: [Denies headache, stroke and transient ischemic attack]. PSYCHIATRIC: [Denies anxiety and depression]. ENDOCRINE: [Denies thyroid disease]. HEMATOLOGY/ONCOLOGY: [Denies bleeding or clotting disorder]. HEART: [Denies any chest pains, palpitations, paroxysmal dyspnea, orthopnea]. PULMONARY: [Denies chronic cough, dyspnea and wheezing]. GASTROINTESTINAL: [Denies rectal bleeding, family history of colon cancer, constipation, diarrhea, dysphagia, heartburn and jaundice]. GENITOURINARY: [Denies dysuria, frequency, hematuria and nocturia]. ENDOCRINE: [Denies polydipsia, polyphagia, polyuria, heat or cold intolerance]. INFECTIOUS: [Denies any recent upper respiratory tract infection, UTI, need for use of antibiotics]. NUTRITION: [Reports good appetite]. PHYSICAL EXAMINATION: VITALS SIGNS: Please see below. GENERAL APPEARANCE:[Patient seen, laying in bed, awake, alert, and oriented. Comfortable, in no acute distress]. SKIN: [Warm and moist]. HEENT: [Normocephalic, atraumatic. Hayes palpebral conjunctiva, anicteric sclerae. Lips and mucosa appear moist]. NECK: [Supple, no thyromegaly. No obvious jugular venous distention]. LUNGS: [Clear to auscultation bilaterally. No wheezing appreciated]. HEART: [No chest wall abnormalities. Regular rate and rhythm with no murmurs appreciated]. ABDOMEN: Abdomen is , soft, . [No hepatosplenomegaly. No umbilical or groin herniations, nondistended. No noticeable rebound or guarding. No grimacing with palpation. No rebound tenderness. No masses appreciated]. EXTREMITIES: [Extremities have no deformities. No edema identified] ANCILLARIES: . LABORATORY DATA: Please see below. IMAGING STUDIES: . IMPRESSION AND PLAN: Subacute pancreatitis Cholelithiasis Prior history of peptic ulcer disease This could very well be just gallstone-related subacute pancreatitis though his lipase numbers never had gone up acutely. Also the involved area is the head of the pancreas and the pattern of swelling seems to be similar to previous imaging back in 2016 where he was admitted under my service plumber to have a contained perforation of duodenal ulcer associated with a duodenal diverticulum. He had an abnormal upper GI series at that time. He was treated and felt improved. He is no longer on any antiulcer medications at this time. He never had an upper endoscopy as been previously planned to verify the healing and to make sure there are no other pathologies involved at that area. I placed him back on Carafate as well as Protonix. I would like to get an upper GI series during this admission. I spoke to him about performing cholecystectomy but patient would prefer this to be done as an outpatient and not wait for it towards the end of his admission if possible. Vital Signs Vital Signs Date Time Temp Pulse Resp B/P (MAP) Pulse Ox O2 Delivery O2 Flow Rate FiO2 12/23/18 08:46 60 103/66 12/23/18 06:00 97.1 19 98 12/22/18 19:57 Room Air I&Os I&O- Last 24 Hours up to 6 AM 12/23/18 06:00 Intake Total 1000 ml Output Total 1050 ml Balance -50 ml Laboratory Data Labs 24H Laboratory Tests 2 12/22/18 16:23: Immature Granulocyte % (Auto) 0.5, White Blood Count 9.8, Red Blood Count 4.10L, Hemoglobin 12.3L, Hematocrit 37.6L, Mean Corpuscular Volume 91.7, Mean Corpuscular Hemoglobin 30.0, Mean Corpuscular Hemoglobin Concent 32.7, Red Cell Distribution Width 14.5, Platelet Count 376, Neutrophils (%) (Auto) 74.1H, Lymphocytes (%) (Auto) 16.5L, Monocytes (%) (Auto) 6.9H, Eosinophils (%) (Auto) 1.4, Basophils (%) (Auto) 0.6, Neutrophils # (Auto) 7.2, Lymphocytes # (Auto) 1.6, Monocytes # (Auto) 0.7, Eosinophils # (Auto) 0.1, Basophils # (Auto) 0.1, Nucleated Red Blood Cells % (auto) 0.0, Erythrocyte Sedimentation Rate 75H, Anion Gap 9, Glomerular Filtration Rate 39.5L, Lactic Acid Level 1.8, Calcium Level 9.2, Aspartate Amino Transf (AST/SGOT) 21, Alanine Aminotransferase (ALT/SGPT) 20, Alkaline Phosphatase 62, Total Bilirubin 0.8, Direct Bilirubin 0 .2, Total Creatine Kinase 55, Creatine Kinase MB 1.0, Creatine Kinase MB Relative Index 2.55, Troponin I 0.02, C-Reactive Protein, Quantitative 6.43H, Total Protein 7.1, Albumin 3.0L, Albumin/Globulin Ratio 0.73L, Lipase 263 12/22/18 20:16: Urine Color YELLOW, Urine Appearance CLEAR, Urine pH 5.0, Urine Specific [place] 1.018, Urine Protein 1+H, Urine Glucose (UA) NEGATIVE, Urine Ketones NEGATIVE, Urine Blood NEGATIVE, Urine Nitrite NEGATIVE, Urine Bilirubin NEGATIVE, Urine Urobilinogen 0.2, Urine Leukocyte Esterase NEGATIVE, Urine WBC (Auto) 2, Urine RBC (Auto) 0, Urine Hyaline Casts (Auto) 0, Urine Bacteria (Auto) NEGATIVE, Urine Squamous Epithelial Cells 1, Urine Mucus (Auto) SMALL, Urine Sperm (Auto) , Urine Amphetamines Screen NEGATIVE, Urine Benzodiazepines Screen NEGATIVE, Urine Opiates Screen POSITIVEH, Urine Methadone Screen NEGATIVE, Urine Barbiturates Screen NEGATIVE, Urine Phencyclidine Screen NEGATIVE, Urine Cocaine Metabolite Screen NEGATIVE, Urine Cannabinoids Screen POSITIVEH 12/23/18 05:27: Nucleated Red Blood Cells % (auto) 0.3H, Anion Gap 6L, Glomerular Filtration Rate 43.0L, Calcium Level 8.1L, Lipase 223, Blood Urea Nitrogen 34H, Creatinine 1.73H, Sodium Level 144, Potassium Level 4.4, Chloride Level 112H, Carbon Diox kathleen Level 26 CBC/BMP Laboratory Tests 12/22/18 16:23 Red Blood Count 4.10 L, Mean Corpuscular Volume 91.7, Mean Corpuscular Hemoglobin 30.0, Mean Corpuscular Hemoglobin Concent 32.7, Red Cell Distribution Width 14.5, Neutrophils (%) (Auto) 74.1 H, Lymphocytes (%) (Auto) 16.5 L, Monocytes (%) (Auto) 6.9 H, Eosinophils (%) (Auto) 1.4, Basophils (%) (Auto) 0.6, Neutrophils # (Auto) 7.2, Lymphocytes # (Auto) 1.6, Monocytes # (Auto) 0.7, Eosinophils # (Auto) 0.1, Basophils # (Auto) 0.1 12/23/18 05:27 Red Blood Count 3.33 L, Mean Corpuscular Volume 94.9, Mean Corpuscular Hemoglobin 30.0, Mean Corpuscular Hemoglobin Concent 31.6 L, Red Cell Distribution Width 14.6 H, Calcium Level 8.1 L Home Medications Scheduled Amlodipine Besylate (Amlodipine Besylate) 10 Mg Tab, 10 MG PO DAILY, (Reported) Aspirin (Aspirin EC) 81 Mg Tab, 81 MG PO DAILY, (Reported) Bisoprolol Fumarate (Bisoprolol Fumarate) 5 Mg Tab, 5 MG PO DAILY, (Reported) Scheduled PRN Bismuth Subsalicylate (Pepto-Bismol) 262 Mg Tab, 2 TAB PO Q4H PRN for INDIGESTION, (Reported) Calcium Carbonate (Tums) 500 Mg Chw, 2 TAB PO QID PRN for INDIGESTION, (Reported) Allergies Coded Allergies: No Known Allergies (Verified , 03/21/09) NASIR MONTOYA MD Dec 23, 2018 09:19
--- NOTE | 2018-12-23 09:56 | REP ---
MRCP EXAMINATION: Without contrast. HISTORY: Abdomen pain. Recurrent pancreatitis. CT study December 22, 2018 is reviewed. TECHNIQUE: Axial and coronal T2-weighted scans are acquired. MRCP is acquired and maximal intensity projection images are generated and displayed rotationally. MRCP FINDINGS: Cholelithiasis is again noted. No focal hepatic lesion or splenic lesion is appreciated. There is an accessory splenule adjacent to the pancreatic tail. The abdominal aorta is quite tortuous and there is evidence of an infrarenal abdominal aortic aneurysm. The right kidney is resected. There are cortical cysts arising from the left kidney. The common bile duct is mildly prominent measuring 8 mm in greatest diameter. The proximal pancreatic duct is mildly dilated as well measuring 5 mm. The main pancreatic duct in the body and tail are normal. There is no visible pancreatic mass. The lymph nodes described adjacent to the pancreas and recent CT studies are not well visualized on MRCP images. They appear to be unchanged from November 23, 2016 CT study however. There is no evidence of choledocholithiasis. IMPRESSION: Mildly dilated common bile and main pancreatic ducts. Cholelithiasis. No evidence of choledocholithiasis. No mass or stricture seen. Electronically Signed by Eamon Díaz MD 12/23/2018 07:56 P
[2018-12-23] MEDS ORDERED: E-Z-PAQUE 96% w/w SUSP 176GM BTL As Ordered ONE (10:30)
[2018-12-23] MEDS ORDERED: E-Z-HD 98% w/w 340GM SUSP BTL As Ordered ONE (10:31)
[2018-12-23] MEDS ORDERED: E-Z-GAS II EFFERVESCENT PACKET (SODIUM BICARB./CITRIC ACID/SIMETHICONE) As Ordered ONE (10:31)
[2018-12-23 14:00] VITALS: BP 126/83
[2018-12-23] MEDS: NS 1,000 ML IV SCH (14:49)
--- NOTE | 2018-12-23 15:34 | IPNPDOC ---
Date Seen The patient was seen on 12/23/18. Progress Note SUBJECTIVE: Patient reports improvement in his abdominal pain he still has some but it is certainly getting better he denies any other complaints at this time OBJECTIVE PHYSICAL EXAMINATION: VITAL SIGNS: Please see below. GENERAL: Pleasant obese elderly man sitting in a chair in no acute distress HEENT: Cranial nerves II through XII grossly intact no elevation CVP CARDIOVASCULAR: S1-S2 regular. RESPIRATORY: Clear to auscultation bilaterally. ABDOMINAL: Bowel sounds present abdomen soft is tender in the epigastric region but not to light palpation only deep palpation which is an improvement from previous days exam EXTREMITIES: No clubbing cyanosis or edema LABORATORY DATA, IMAGING STUDIES, MICROBIOLOGY: Please see below. DVT prophylaxis ordered?: Heparin every 12 ASSESSMENT AND PLAN: This is a 63-year-old man with recurrent abdominal pain. PROBLEMS: 1. Recurrent abdominal pain. His clinical history on his last admission is suspicious for pancreatitis however given it recurrent nature and a normal lipase, it is unclear to me this is definitely the etiology. General surgery consultation greatly appreciated. Certainly could be secondary to gallstones with subacute recurrent pancreatitis. However given his quick recurrence I do hesitate to discharge him for outpatient follow-up I suspect she could redevelop symptoms prior to making it to an outpatient appointment as was the case during his last discharge. Upper GI series ordered MRI completed report pending 2. Gastroesophageal reflux disease. Continue with Tums as needed. Gen. surgery start the patient on a PPI and Carafate as well 3. Hypertension. Continue with amlodipine and bisoprolol with holding parameters. We will hold his home aspirin for now. 4. DVT prophylaxis. We will place the patient on Heparin twice a day. He is ambulating. 5. Acute kidney injury secondary to dehydration. We will monitor. Improving Likely will get better with IV fluids as it has in the past. VS, I&O, 24H, Fishbone Vital Signs/I&O Vital Signs Date Time Temp Pulse Resp B/P (MAP) Pulse Ox O2 Delivery O2 Flow Rate FiO2 12/23/18 14:00 97.2 68 18 126/83 (97) 96 12/22/18 19:57 Room Air I&O- Last 24 Hours up to 6 AM 12/23/18 05:59 Intake Total 1000 ml Output Total 650 ml Balance 350 ml Laboratory Data 24H LABS Laboratory Tests 2 12/22/18 16:23: Immature Granulocyte % (Auto) 0.5, White Blood Count 9.8, Red Blood Count 4.10L, Hemoglobin 12.3L, Hematocrit 37.6L, Mean Corpuscular Volume 91.7, Mean Corpuscular Hemoglobin 30.0, Mean Corpuscular Hemoglobin Concent 32.7, Red Cell Distribution Width 14.5, Platelet Count 376, Neutrophils (%) (Auto) 74.1H, Lymphocytes (%) (Auto) 16.5L, Monocytes (%) (Auto) 6.9H, Eosinophils (%) (Auto) 1.4, Basophils (%) (Auto) 0.6, Neutrophils # (Auto) 7.2, Lymphocytes # (Auto) 1.6, Monocytes # (Auto) 0.7, Eosinophils # (Auto) 0.1, Basophils # (Auto) 0.1, Nucleated Red Blood Cells % (auto) 0.0, Erythrocyte Sedimentation Rate 75H, Anion Gap 9, Glomerular Filtration Rate 39.5L, Lactic Acid Level 1.8, Calcium Level 9.2, Aspartate Amino Transf (AST/SGOT) 21, Alanine Aminotransferase (ALT/SGPT) 20, Alkaline Phosphatase 62, Total Bilirubin 0.8, Direct Bilirubin 0.2, Total Creatine Kinase 55, Creatine Kinase MB 1.0, Creatine Kinase MB Relative Index 2.55, Troponin I 0.02, C-Reactive Protein, Quantitative 6.43H, Total Protein 7.1, Albumin 3.0L, Albumin/Globulin Ratio 0.73L, Lipase 263 12/22/18 20:16: Urine Color YELLOW, Urine Appearance CLEAR, Urine pH 5.0, Urine Specific [place] 1.018, Urine Protein 1+H, Urine Glucose (UA) NEGATIVE, Urine Ketones NEGATIVE, Urine Blood NEGATIVE, Urine Nitrite NEGATIVE, Urine Bilirubin NEGATIVE, Urine Urobilinogen 0.2, Urine Leukocyte Esterase NEGATIVE, Urine WBC (Auto) 2, Urine RBC (Auto) 0, Urine Hyaline Casts (Auto) 0, Urine Bacteria (Auto) NEGATIVE, Urine Squamous Epithelial Cells 1, Urine Mucus (Auto) SMALL, Urine Sperm (Auto) , Urine Amphetamines Screen NEGATIVE, Urine Benzodiazepines Screen NEGATIVE, Urine Opiates Screen POSITIVEH, Urine Methadone Screen NEGATIVE, Urine Barbiturates Screen NEGATIVE, Urine Phencyclidine Screen NEGATIVE, Urine Cocaine Metabolite Screen NEGATIVE, Urine Cannabinoids Screen POSITIVEH 12/23/18 05:27: Nucleated Red Blood Cells % (auto) 0.3H, Anion Gap 6L, Glomerular Filtration Rate 43.0L, Calcium Level 8.1L, Lipase 223, Blood Urea Nitrogen 34H, Creatinine 1.73H, Sodium Level 144, Potassium Level 4.4, Chloride Level 112H, Carbon Dioxide Level 26 CBC/BMP Laboratory Tests 12/22/18 16:23 Red Blood Count 4.10 L, Mean Corpuscular Volume 91.7, Mean Corpuscular H emoglobin 30.0, Mean Corpuscular Hemoglobin Concent 32.7, Red Cell Distribution Width 14.5, Neutrophils (%) (Auto) 74.1 H, Lymphocytes (%) (Auto) 16.5 L, Monocytes (%) (Auto) 6.9 H, Eosinophils (%) (Auto) 1.4, Basophils (%) (Auto) 0.6, Neutrophils # (Auto) 7.2, Lymphocytes # (Auto) 1.6, Monocytes # (Auto) 0.7, Eosinophils # (Auto) 0.1, Basophils # (Auto) 0.1 12/23/18 05:27 Red Blood Count 3.33 L, Mean Corpuscular Volume 94.9, Mean Corpuscular Hemoglobin 30.0, Mean Corpuscular Hemoglobin Concent 31.6 L, Red Cell Distribution Width 14.6 H, Calcium Level 8.1 L EULOGIO MCKEE MD Dec 23, 2018 15:34
--- NOTE | 2018-12-23 17:28 | REP ---
UPPER GI AIR CONTRAST The procedure was performed under the direct supervision of Dr. Díaz. The images were reviewed with Dr. Díaz. The electronic warfare linguist film shows no organomegaly or pathological masses. The intestinal gas pattern is nonspecific. There are vascular calcifications identified. There are degenerative changes of the spine. There are degenerative changes of the hips bilaterally. Liquid barium and gas producing granules and given in the erect position as well as liquid barium in the prone oblique position in order to perform a double contrast upper GI examination. The oral and pharyngeal stages of deglutition are unremarkable. Esophageal transport is prompt and efficient and there is no esophagitis stricture mucosal ring or hiatal hernia. Gastroesophageal reflux is not demonstrated on this examination. The stomach toro are normally aligned. The rugal folds are smooth and regular. There is no gastritis neoplasm or ulcer disease. In the immediate post bulbar duodenum there is narrowing and fold thickening. There is a 1 cm ulcer identified. Just distal to this there is a duodenal diverticulum. There is enlargement of the C-loop consistent with pad effect from pancreatic disease. The visualized portion of the proximal small bowel appears normal in course and caliber. Impression: In the immediate post bulbar duodenum there is narrowing and fold thickening. There is a 1 cm ulcer identified. Just distal to this there is a duodenal diverticulum. There is enlargement of the C-loop consistent with pad effect from pancreatic disease. 1.3 minutes of fluoroscopy time was utilized for this procedure. Reviewed by ALBA Kelsey 12/23/2018 03:15 P Electronically Signed by Eamon Díaz MD 12/23/2018 05:18 P
[2018-12-23 22:00] VITALS: BP 128/96
[2018-12-24 06:00] VITALS: BP 134/78
[2018-12-24 06:24] LABS: HEMATOCRIT 33.9 % (42.0-52.0); HEMOGLOBIN 10.7 g/dl (13.5-17.5); MEAN CORPUSCULAR HEMOGLOBIN 30.1 pg (27.0-33.0); MEAN CORPUSCULAR HGB CONC 31.6 g/dl (32.0-36.5); MEAN CORPUSCULAR VOLUME 95.5 fl (80.0-96.0); PLATELET COUNT, AUTOMATED 326 10^3/uL (150-450); RED BLOOD COUNT 3.55 10^6/uL (4.30-6.10)
[2018-12-24 06:44] LABS: CALCIUM LEVEL 8.1 MG/DL (8.8-10.2); CREATININE FOR GFR 1.63 MG/DL (0.70-1.30); POTASSIUM SERUM 4.2 MEQ/L (3.5-5.1)
--- NOTE | 2018-12-24 08:20 | IPN ---
DATE: 12/24/2018 The patient was admitted with pancreatitis on his previous admission. This admission, he did not have any elevated pancreatic enzyme levels. However, he had been complaining of epigastric pain and discomfort and some left upper quadrant pain. He ended up having a work up for his pancreatitis and more importantly had an upper GI that showed a post bulbar duodenal ulcer. The patient has been on some medications for his stomach. He says that overall his stomach has been better. On his physical exam, abdomen is soft, nontender and nondistended. IMPRESSION: Patient has two issues, one of which is a duodenal ulcer which I feel is the most likely etiology for his abdominal pain and treatment with this aggressively with proton pump inhibitors and Carafate is very reasonable. Two, is pancreatitis. The etiology for this up until the upper GI yesterday was obviously gallstone pancreatitis, however, after the upper GI the question is whether the ulcer may have caused some mild pancreatitis inflammation. In general, given its location of the ulcer, this is a possibility as the etiology for the slight elevation in the lipase the last admission and the peripancreatic/duodenal inflammation seen on the previous CAT scan. Thus, at this point, options are varied, but in general I do feel we can start him on a clear liquid diet and advance his diet tomorrow and obviously proceeding with either a laparoscopic cholecystectomy while he is an inpatient may be a reasonable option as well as deferring treatment until outpatient laparoscopic cholecystectomy. This can be discussed with Dr. Edmondson on Wednesday should the patient still be here at that time, but will start him on clear liquids and then advance his diet as tolerated to a low fat diet.
[2018-12-24] MEDS: SUCRALFATE 1 GM TAB PO SCH ×2 (10:00→20:23)
[2018-12-24] MEDS: PANTOPRAZOLE 40MG TAB (PROTONIX) PO SCH ×2 (10:00→20:23)
[2018-12-24] MEDS: amLODIPine 10 MG TAB PO SCH (10:01)
[2018-12-24] MEDS: HEPARIN SOD (PORCINE) 5000 UNITS/ML VIAL SQ SCH ×2 (10:01→20:23)
[2018-12-24] MEDS: BISOPROLOL FUMARATE 5 MG TAB PO SCH (10:01)
[2018-12-24 14:00] VITALS: BP 135/75
--- NOTE | 2018-12-24 14:01 | IPNPDOC ---
Date Seen The patient was seen on 12/24/18. Progress Note SUBJECTIVE: Patient reports improvement in his abdominal pain he tells me is almost completely gone and he is ready to try eating or drinking something today OBJECTIVE PHYSICAL EXAMINATION: VITAL SIGNS: Please see below. GENERAL: Pleasant obese elderly man up ambulating around his room no acute distress HEENT: Cranial nerves II through XII grossly intact no elevation CVP CARDIOVASCULAR: S1-S2 regular. RESPIRATORY: Clear to auscultation bilaterally. ABDOMINAL: Bowel sounds present abdomen soft is tender in the epigastric region but only deep palpation EXTREMITIES: No clubbing cyanosis or edema LABORATORY DATA, IMAGING STUDIES, MICROBIOLOGY: Please see below. DVT prophylaxis ordered?: Heparin every 12 ASSESSMENT AND PLAN: This is a 63-year-old man with recurrent abdominal pain. PROBLEMS: 1. Recurrent abdominal pain. Mild pancreatitis versus duodenal ulcer my sanabria spicion is that it is secondary to the ulcer given its persistent epigastric nature and recurrent nature. We'll discuss further Dr. Yobani Corral Wednesday however I suspect he may benefit from simply Carafate and Protonix and that he may be able to forego acute cholecystectomy 2. Gastroesophageal reflux disease. Continue with Tums as needed. Gen. surgery.. He is continued on Tums he is normally uses Pepto-Bismol this small as well at home Gen. surgery help greatly appreciated 3. Hypertension. Continue with amlodipine and bisoprolol with holding parameters. We will hold his home aspirin for now. 4. DVT prophylaxis. We will place the patient on Heparin twice a day. He is ambulating. 5. Acute kidney injury secondary to dehydration. Continue with IV fluids for now as his renal function is slowly improving he has a history of nephrectomy VS, I&O, 24H, Brandon Vital Signs/I&O Vital Signs Date Time Temp Pulse Resp B/P (MAP) Pulse Ox O2 Delivery O2 Flow Rate FiO2 12/24/18 10:01 78 134/74 12/24/18 06:00 97.4 18 97 12/22/18 19:57 Room Air I&O- Last 24 Hours up to 6 AM 12/24/18 06:00 Intake Total 900 ml Output Total 1100 ml Balance -200 ml Laboratory Data 24H LABS Laboratory Tests 2 12/24/18 05:58: Nucleated Red Blood Cells % (auto) 0.0, Anion Gap 10, Glomerular Filtration Rate 46.0L, Blood Urea Nitrogen 25H, Creatinine 1.63H, Sodium Level 144, Potassium Level 4.2, Chloride Level 111H, Carbon Dioxide Level 23, Calcium Level 8.1L CBC/BMP Laboratory Tests 12/24/18 05:58 Red Blood Count 3.55 L, Mean Corpuscular Volume 95.5, Mean Corpuscular Hemoglobin 30.1, Mean Corpuscular Hemoglobin Concent 31.6 L, Red Cell Distribution Width 14.5, Calcium Level 8.1 L EULOGIO MCKEE MD Dec 24, 2018 14:01
[2018-12-24] MEDS: LR 1,000 ML IV SCH (15:06)
[2018-12-24 22:00] VITALS: BP 179/99
[2018-12-25] MEDS: LR 1,000 ML IV SCH
[2018-12-25 06:00] VITALS: BP 164/98
[2018-12-25 06:25] LABS: HEMATOCRIT 33.5 % (42.0-52.0); HEMOGLOBIN 10.7 g/dl (13.5-17.5); MEAN CORPUSCULAR HEMOGLOBIN 29.8 pg (27.0-33.0); MEAN CORPUSCULAR HGB CONC 31.9 g/dl (32.0-36.5); MEAN CORPUSCULAR VOLUME 93.3 fl (80.0-96.0); PLATELET COUNT, AUTOMATED 313 10^3/uL (150-450); RED BLOOD COUNT 3.59 10^6/uL (4.30-6.10); WHITE BLOOD COUNT 7.2 10^3/uL (4.0-10.0)
[2018-12-25 06:44] LABS: CALCIUM LEVEL 7.9 MG/DL (8.8-10.2); CREATININE FOR GFR 1.56 MG/DL (0.70-1.30); GLOMERULAR FILTRATION RATE 48.4 (>49); POTASSIUM SERUM 4.2 MEQ/L (3.5-5.1)
[2018-12-25] MEDS: HEPARIN SOD (PORCINE) 5000 UNITS/ML VIAL SQ SCH ×2 (08:28→20:17)
[2018-12-25] MEDS: BISOPROLOL FUMARATE 5 MG TAB PO SCH (08:29)
[2018-12-25] MEDS: PANTOPRAZOLE 40MG TAB (PROTONIX) PO SCH ×2 (08:29→20:17)
[2018-12-25] MEDS: amLODIPine 10 MG TAB PO SCH (08:29)
[2018-12-25] MEDS: SUCRALFATE 1 GM TAB PO SCH ×2 (08:29→20:17)
--- NOTE | 2018-12-25 10:55 | IPNPDOC ---
Date Seen The patient was seen on 12/25/18. Progress Note SUBJECTIVE: Patient reports his abdominal pain has resolved and he just had some cereal a short while ago that hsa not caused him any discomfort. OBJECTIVE PHYSICAL EXAMINATION: VITAL SIGNS: Please see below. GENERAL: Pleasant obese elderly man up sitting in chair no acute distress HEENT: Cranial nerves II through XII grossly intact no elevation CVP CARDIOVASCULAR: S1-S2 regular. RESPIRATORY: Clear to auscultation bilaterally. ABDOMINAL: Bowel sounds present abdomen soft and nontender today EXTREMITIES: No clubbing cyanosis or edema LABORATORY DATA, IMAGING STUDIES, MICROBIOLOGY: Please see below. DVT prophylaxis ordered?: Heparin every 12 ASSESSMENT AND PLAN: This is a 63-year-old man with recurrent abdominal pain. PROBLEMS: 1. Recurrent abdominal pain. Mild pancreatitis versus duodenal ulcer my suspicion is that it is secondary to the ulcer given its persistent epigastric nature and recurrent nature. We'll discuss further however I suspect he may benefit from simply Carafate and Protonix and that he may be able to forego cholecystectomy 2. Gastroesophageal reflux disease. Continue with Tums as needed. Gen. surgery.. He is continued on Tums he is normally uses Pepto-Bismol this small as well at home Gen. surgery help greatly appreciated 3. Hypertension. Continue with amlodipine and bisoprolol with holding parameters. We will hold his home aspirin for now. 4. DVT prophylaxis. We will place the patient on Heparin twice a day. He is ambulating. 5. Acute kidney injury secondary to dehydration. Will DC IV fluids and continue to monitor his renal function daily VS, I&O, 24H, Brandon Vital Signs/I&O Vital Signs Date Time Temp Pulse Resp B/P (MAP) Pulse Ox O2 Delivery O2 Flow Rate FiO2 12/25/18 08:29 84 160/70 12/25/18 06:00 97.5 18 97 12/22/18 19:57 Room Air I&O- Last 24 Hours up to 6 AM 12/25/18 06:00 Intake Total 3060 ml Output Total 800 ml Balance 2260 ml Laboratory Data 24H LABS Laboratory Tests 2 12/25/18 06:03: Nucleated Red Blood Cells % (auto) 0.0, Anion Gap 5L, Glomerular Filtration Rate 48.4L, Blood Urea Nitrogen 17, Creatinine 1.56H, Sodium Level 143, Potassium Level 4.2, Chloride Level 111H, Carbon Dioxide Level 27, Calcium Level 7.9L CBC/BMP Laboratory Tests 12/25/18 06:03 Red Blood Count 3.59 L, Mean Corpuscular Volume 93.3, Mean Corpuscular Hemoglobin 29.8, Mean Corpuscular Hemoglobin Concent 31.9 L, Red Cell Distribution Width 14.1, Calcium Level 7.9 L EULOGIO MCKEE MD Dec 25, 2018 10:55
--- NOTE | 2018-12-25 11:41 | IPN ---
DATE: 12/25/2018 The patient seems to be making some good progress with his gastric ulcer and overall tolerated some regular food this morning. However, he is very concerned about being discharged too early given his recurrence of his abdominal pain after discharge last time he did tolerate a regular diet prior to discharge but only had one meal and he would like to have a couple meals first before he sees how he does. Otherwise his abdomen is morbidly obese, nontender. He has been afebrile. His vital signs are stable. His intake and output are good and he had three bowel movements yesterday but no significant diarrhea. IMPRESSION AND PLAN: 1. Peptic ulcer the patient has peptic ulcer seems to be resolving with current treatment as expected and it is reasonable to continue him on a low-fat diet and be discharged to home and to follow up with Dr. Edmondson concerning possible laparoscopic cholecystectomy, although at this point I do feel that there is some question whether the pancreatitis was associated with gallstones or whether this was related to the peptic ulcer disease and the patient understands that if this was related to the gallstones that he has the high risk of recurrence of pancreatitis / gallstone complications. But at this point he would like to "hold onto his gallstones" and will follow up with Dr. Edmondson concerning this.
[2018-12-25 14:00] VITALS: BP 137/85
[2018-12-25 22:00] VITALS: BP 135/88
[2018-12-26 05:43] LABS: HEMATOCRIT 33.1 % (42.0-52.0); HEMOGLOBIN 10.7 g/dl (13.5-17.5); MEAN CORPUSCULAR HEMOGLOBIN 30.3 pg (27.0-33.0); MEAN CORPUSCULAR HGB CONC 32.3 g/dl (32.0-36.5); MEAN CORPUSCULAR VOLUME 93.8 fl (80.0-96.0); PLATELET COUNT, AUTOMATED 297 10^3/uL (150-450); RED BLOOD COUNT 3.53 10^6/uL (4.30-6.10)
[2018-12-26 06:00] VITALS: BP 128/78
[2018-12-26 06:22] LABS: CALCIUM LEVEL 8.1 MG/DL (8.8-10.2); CREATININE FOR GFR 1.66 MG/DL (0.70-1.30); GLOMERULAR FILTRATION RATE 45.1 (>49)
[2018-12-26 08:35] VITALS: BP 128/78
[2018-12-26] MEDS: HEPARIN SOD (PORCINE) 5000 UNITS/ML VIAL SQ SCH (08:35)
[2018-12-26] MEDS: BISOPROLOL FUMARATE 5 MG TAB PO SCH (08:35)
[2018-12-26] MEDS: SUCRALFATE 1 GM TAB PO SCH (08:35)
[2018-12-26] MEDS: amLODIPine 10 MG TAB PO SCH (08:36)
[2018-12-26] MEDS: PANTOPRAZOLE 40MG TAB (PROTONIX) PO SCH (08:36)
[2018-12-26 08:39] VITALS: BP 126/70
--- NOTE | 2018-12-26 10:02 | IPNPDOC ---
Subjective General Date/Time Seen The patient was seen on 12/26/18 at 09:59. Subject Chief Complaint/History The patient is a 63-year-old male admitted with a reason for visit of Abdominal Pain. Patient reports improvement of his abdominal pain over the weekend. He so far has tolerated 3 solid meals and denies any nausea, bloating, abdominal discomfort. Current Medications Current Medications Current Medications Amlodipine Besylate (Norvasc) 10 mg DAILY PO Last administered on 12/26/18 08:36; Start 12/22/18 at 09:00 Bisoprolol Fumarate (Zebeta) 5 mg DAILY PO Last administered on 12/26/18 08:35; Start 12/22/18 at 09:00 Calcium Carbonate (Tums) 500 mg BID PRN PO INDIGESTION; Start 12/22/18 at 19:15 Heparin Sodium (Porcine) (Heparin) 5,000 units Q12H SQ Last administered on 12/26/18 08:35; Start 12/22/18 at 21:00 Home Med (Med Rec Complete!) ASDIRECTED XX ; Start 12/22/18 at 18:30; Stop 12/22/18 at 18:30; Status DC Lactated Ringer's 1,000 ml @ 100 mls/hr Q10H IV Last administered on 12/25/18at 00:00; Start 12/24/18 at 14:00; Stop 12/25/18 at 06:48; Status DC Morphine Sulfate (Morphine Sulfate Inj) 1 mg Q4HP PRN IV PAIN; Start 12/22/18 at 19:30 Morphine Sulfate (Morphine Sulfate Inj) 2 mg Q4HP PRN IV PAIN Last administered on 12/22/18at 23:58; Start 12/22/18 at 19:30 Pantoprazole Sodium (Protonix) 40 mg BID PO Last administered on 12/26/18 08:36; Start 12/24/18 at 09:00 Pantoprazole Sodium (Protonix) 40 mg DAILY PO Last administered on 12/23/18at 08:46; Start 12/23/18 at 09:00; Stop 12/24/18 at 08:02; Status DC Sodium Chloride 1,000 ml @ 100 mls/hr Q10H IV Last administered on 12/23/18 14:49; Start 12/22/18 at 19:30; Stop 12/24/18 at 08:02; Status DC Sucralfate (Carafate) 1 gm BID PO Last administered on 12/26/18at 08:35; Start 12/23/18 at 09:00 Allergies Coded Allergies: No Known Allergies (Verified , 03/21/09) Objective Physical Examination Examination GENERAL APPEARANCE: Patient seen sitting up by the bedside,very comfortable. SKIN: Warm and moist. HEENT: Normocephalic, atraumatic. Gough palpebral conjunctiva, anicteric scler ae. Lips and mucosa appear moist. LUNGS: Clear to auscultation bilaterally. No wheezing appreciated. HEART: No chest wall abnormalities. Regular rate and rhythm with no murmurs appreciated. ABDOMEN: Abdomen is obese, soft, and nondistended. Nontender on palpation. EXTREMITIES: No edema. Vital Signs Vital Signs Date Time Temp Pulse Resp B/P (MAP) Pulse Ox O2 Delivery O2 Flow Rate FiO2 12/26/18 08:39 64 126/70 (88) 12/26/18 06:00 97.3 18 98 12/22/18 19:57 Room Air I&Os I&O- Last 24 Hours up to 6 AM 12/26/18 06:00 Intake Total 2880 ml Output Total 4325 ml Balance -1445 ml Laboratory Data Labs 24H Laboratory Tests 2 12/26/18 05:33: Nucleated Red Blood Cells % (auto) 0.0, Anion Gap 5L, Glomerular Filtration Rate 45.1L, Blood Urea Nitrogen 15, Creatinine 1.66H, Sodium Level 143, Potassium Level 4.0, Chloride Level 111H, Carbon Dioxide Level 27, Calcium Level 8.1L CBC/BMP Laboratory Tests 12/26/18 05:33 Red Blood Count 3.53 L, Mean Corpuscular Volume 93.8, Mean Corpuscular Hemoglobin 30.3, Mean Corpuscular Hemoglobin Concent 32.3, Red Cell Distribution Width 14.3, Calcium Level 8.1 L Impression Abdominal pain most likely related to peptic ulcer disease with secondary inflammation of the head of the pancreas Cholelithiasis I agree that his course is more consistent with peptic ulcer disease been acute gallstone pancreatitis. He feels improved on Protonix and Carafate. He had a prior history of ulcer back in 2016 which I treated him for. Is not clear how long he took the PPIs. He also canceled the previously planned endoscopy to check up on healing at that time. I cautioned him that he needs upper endoscopy usually about 6-8 weeks to make sure for adequate healing. Most duodenal ulcers are related to hyper-acidity. Follow-up with me in 1 month Plan / VTE VTE Prophylaxis Ordered?: Yes NASIR MONTOYA MD Dec 26, 2018 10:02
[2018-12-26] MEDS ORDERED: SUCR1TA PO (12:11)
[2018-12-26] MEDS ORDERED: PANT40TA3 PO (12:11)
--- NOTE | 2018-12-26 13:08 | DS.PDOC ---
Discharge Summary General Date of Admission Dec 22, 2018 at 19:14 Date of Discharge 12/26/18 Attending Physician: JONNATHAN KING MD Specialist/Consultants Involve: NASIR EDMONDSON MD Discharge Summary PROCEDURES PERFORMED DURING STAY: [None]. ADMITTING DIAGNOSES: 1. Abdominal pain 2/2 Pancreatitis vs. Duodenal ulcer DISCHARGE DIAGNOSES: 1. Duodenal ulcer 2. Mild Pancreatitis 3. GERD 4. HTN 5. KAMALJIT COMPLICATIONS/CHIEF COMPLAINT: Abdominal Pain. HISTORY OF PRESENT ILLNESS: "The patient is a 63-year-old man who is well known to me who was recently admitted on 12/13/2018 and discharged 12/15/2018, at that time he was referred by Rashmi Xavier his PCP for abdominal pain. He had been diagnosed in the outpatient setting as pancreatitis with dehydration which he was advised to present to the emergency room. He was treated with IV fluids, normal saline and keep nothing by mouth and his symptoms did resolve. His workup for pancreatitis was fairly unimpressive other than cholelithiasis. He was able to tolerate a regular diet and requested discharge home. He tells me since his discharge home he was doing quite well for several days feeling great and was at his usual however over the last several days he once again had recurrence of his abdominal pain prompting him to have no appetite. He denies any nausea or vomiting at this time or changes in bowel habits. No fevers, chills. No changes in his medications." HOSPITAL COURSE: Patient is 63-year-old male who was referred from his PCP Rashmi Xavier to ER with complaints of abdominal pain and was treated for pancreatitis as well as duodenal ulcer. Multiple imaging were done including abdominal CT f ollowed by abdominal MRI and upper GI series which showed duodenal ulcer which was initially suspected. Patient was started on PPI and soak her foot with improvement in symptoms. He has been tolerating his diet all through the day yesterday and stated that his pain is completely resolved and think that he is ready for discharge. Patient is to follow-up with Dr. Edmondson as outpatient for continued follow-up and management. Cholelithiasis were noted on imaging and suspected that could be contributing to recurrent pancreatitis, although symptoms were likely from duodenal ulcers on this admission. Patient can follow- up and discuss elective cholecystectomy as outpatient when he is ready. DISCHARGE MEDICATIONS: Please see below. ALLERGIES: Please see below. PHYSICAL EXAMINATION ON DISCHARGE: VITAL SIGNS: Please see below. LABORATORY DATA: Please see below. IMAGING: Abdomen CT -There is fat stranding adjacent to the head and uncinate process of the reilly creas as previously and peripancreatic lymph nodes as previously. These findings are consistent with pancreatitis and are unchanged. There is no pseudocyst. No pancreatic duct dilatation. The pancreas is otherwise unremarkable. There is no ascites. There are no pleural effusions. The spleen is normal size and unremarkable. There is no right kidney. I note the patient has clinical history of renal carcinoma and a likely has a right nephrectomy. There is no identifiable right adrenal. The left adrenal and left kidney are unremarkable except for a renal cortical cyst at the lower pole. This is unchanged. There is an abdominal aortic aneurysm measuring 4.7 cm transverse diameter. Just above the bifurcation. This is not significantly changed. There is no periaortic hematoma. There are bilateral iliac artery aneurysms as previously. There are multiple diverticula in the descending colon and sigmoid colon as previously. There is no CT evidence of acute diverticulitis. Some of these diverticuli contain opaque intraluminal material. The appendix is unremarkable. The bladder is unremarkable. There is no ascites or adenopathy. Impression: Parapancreatic stranding and peripancreatic lymph nodes, similar to the prior study, compatible with pancreatitis. Cholelithiasis. Gallbladder otherwise unremarkable. This is unchanged. Abdominal aortic aneurysm. The bilateral iliac artery aneurysms, not significantly changed. Diverticulosis without diverticulitis. No significant change from the comparison study. Abdomen MRI- IMPRESSION: Mildly dilated common bile and main pancreatic ducts. Cholelithiasis. No evidence of choledocholithiasis. No mass or stricture seen. Upper GI Series- Impression: In the immediate post bulbar duodenum there is narrowing and fold thickening. There is a 1 cm ulcer identified. Just distal to this there is a duodenal diverticulum. There is enlargement of the C-loop consistent with pad effect from pancreatic disease. 1.3 minutes of fluoroscopy time was utilized for this procedure. ACTIVITY: [As tolerated]. DIET: Low-fat diet DISCHARGE PLAN: Continue PPI and sulcrafate. Follow-up with PCP and Dr. Edmondson. DISPOSITION: Home. ITEMS TO FOLLOWUP ON ON OUTPATIENT: 1. None DISCHARGE CONDITION: [Stable]. TIME SPENT ON DISCHARGE: Greater than 31 minutes. Vital Signs/I&Os Vital Signs Date Time Temp Pulse Resp B/P (MAP) Pulse Ox O2 Delivery O2 Flow Rate FiO2 12/26/18 08:39 64 126/70 (88) 12/26/18 06:00 97.3 18 98 12/22/18 19:57 Room Air I&O- Last 24 Hours up to 6 AM 12/26/18 06:00 Intake Total 2880 ml Output Total 4325 ml Balance -1445 ml Laboratory Data Labs 24H Laboratory Tests 2 12/26/18 05:33: Nucleated Red Blood Cells % (auto) 0.0, Anion Gap 5L, Glomerular Filtration Rate 45.1L, Blood Urea Nitrogen 15, Creatinine 1.66H, Sodium Level 143, Potassium Level 4.0, Chloride Level 111H, Carbon Dioxide Level 27, Calcium Level 8.1L CBC/BMP Laboratory Tests 12/26/18 05:33 Red Blood Count 3.53 L, Mean Corpuscular Volume 93.8, Mean Corpuscular Hemoglob in 30.3, Mean Corpuscular Hemoglobin Concent 32.3, Red Cell Distribution Width 14.3, Calcium Level 8.1 L Discharge Medications Scheduled Amlodipine Besylate (Amlodipine Besylate) 10 Mg Tab, 10 MG PO DAILY, (Reported) Aspirin (Aspirin EC) 81 Mg Tab, 81 MG PO DAILY, (Reported) Bisoprolol Fumarate (Bisoprolol Fumarate) 5 Mg Tab, 5 MG PO DAILY, (Reported) Pantoprazole Sodium (Pantoprazole Sodium) 40 Mg Tablet.dr, 40 MG PO DAILY Sucralfate (Sucralfate) 1 Gm Tablet, 1 GM PO BID Scheduled PRN Bismuth Subsalicylate (Pepto-Bismol) 262 Mg Tab, 2 TAB PO Q4H PRN for INDIGESTION, (Reported) Calcium Carbonate (Tums) 500 Mg Chw, 2 TAB PO QID PRN for INDIGESTION, (Report ed) Allergies Coded Allergies: No Known Allergies (Verified , 03/21/09) JONNATHAN KING MD Dec 26, 2018 13:08
== END 2018-12-26 13:55 | disposition home or self-care (01) | DRG 383 ==
LOC: M ED 15:35 → M ED INP 19:14 → M MS5PR 20:58
PROVIDERS: ADMIT Internal Medicine; ATTEND Student in an Organized Health Care Education/Training Program
DX: K26.9 Duodenal ulcer, unspecified as acute or chronic, without hemorrhage or perforation (principal); K85.90 Acute pancreatitis without necrosis or infection, unspecified; N17.9 Acute kidney failure, unspecified; K21.9 Gastro-esophageal reflux disease without esophagitis; I10 Essential (primary) hypertension; E86.0 Dehydration; Z79.82 Long term (current) use of aspirin; Z79.899 Other long term (current) drug therapy; I25.10 Atherosclerotic heart disease of native coronary artery without angina pectoris; K80.20 Calculus of gallbladder without cholecystitis without obstruction

== ENCOUNTER → 2018-12-30 | Outpatient (REF) | payer OTHER ==
[~2018-12-30] MED LIST changes: +PANT40TA3 PO; +SUCR1TA PO
[2018-12-30 14:19] LABS: H PYLORI QUALITATIVE IgG NEGATIVE (NEGATIVE)
[2018-12-30 14:27] LABS: FERRITIN 140 NG/ML (26-388); IRON (FE) 35 UG/DL (65-175); PERCENT SATURATION 13.7 % (19.7-50.0); TOTAL IRON BINDING CAPACITY 256 UG/DL (250-450)
== END ==
LOC: M LAB REF 12:29
PROVIDERS: ATTEND Internal Medicine
DX: R10.13 Epigastric pain (principal); D64.9 Anemia, unspecified

== ENCOUNTER → 2019-06-19 | Outpatient (REF) | payer OTHER ==
[~2019-06-19] MED LIST changes: +BISO5TAB14 PO; -BISO5TAB5 PO; -OMEP40CA2 PO; +OMEP40CA97 PO
[2019-06-19 13:36] LABS: INR 1.05; PROTHROMBIN TIME 13.4 SECONDS (11.8-14.0)
[2019-06-19 13:37] LABS: PARTIAL THROMBOPLASTIN TIME 29.5 SECONDS (25.0-38.4)
== END ==
LOC: M LAB REF 13:12
PROVIDERS: ATTEND Internal Medicine
DX: Z01.818 Encounter for other preprocedural examination (principal); D69.8 Other specified hemorrhagic conditions

== ENCOUNTER → 2020-01-24 | Outpatient (CLI) | payer OTHER ==
[2020-01-24 11:58] LABS: CALCIUM LEVEL 8.7 MG/DL (8.8-10.2); CREATININE FOR GFR 1.79 MG/DL (0.70-1.30); GLOMERULAR FILTRATION RATE 41.2 (>49); POTASSIUM SERUM 4.7 MEQ/L (3.5-5.1)
--- NOTE | 2020-01-25 06:31 | REP ---
Clinical: History of renal cancer. Technique: Axial noncontrast images from the thoracic inlet to the upper abdomen with coronal and sagittal re-formations. Comparison: 12/22/2018. Findings: Lung bases are clear. Visualized heart and pericardium relatively normal. Mild fatty infiltration to the liver suggested without focal hepatic lesion. Spleen, pancreas, and left adrenal gland appear normal. Cholelithiasis noted. Evidence of prior right total nephrectomy. Left kidney includes hypodense and hyperdense rounded lesions measuring up to 2.6 cm diameter which remain stable and may represent simple/complex cysts. The enteric system is without obstruction or acute inflammatory process. Scattered colonic diverticula noted without acute diverticulitis. Normal terminal ileum and appendix identified in the right lower quadrant. Pelvis demonstrates normal bladder and age appropriate prostate/seminal vesicles. Aorto-iliac stent again noted. Small fat containing inguinal hernias suggested. No ascites. No free air. No adenopathy. Osseous structures demonstrate degenerative changes without focal abnormality. Impression: 1. Left renal lesions remains stable and likely represent simple and complex/proteinaceous cysts. 2. Cholelithiasis. 3. Mild hepatic steatosis. 4. Sigmoid diverticulosis without acute diverticulitis. 5. No evidence for acute abdominopelvic pathology or evidence for recurrence/metastatic disease. Electronically Signed by Rodolfo Oshea MD 01/25/2020 06:23 A
== END ==
LOC: M RAD 10:52
PROVIDERS: ATTEND Urology
DX: K80.20 Calculus of gallbladder without cholecystitis without obstruction (principal); K76.0 Fatty (change of) liver, not elsewhere classified; K57.30 Diverticulosis of large intestine without perforation or abscess without bleeding; Z85.528 Personal history of other malignant neoplasm of kidney

== ENCOUNTER 2020-05-01 17:21 | Emergency (ER) | payer OTHER ==
[~2020-05-01] VITALS: Ht 175.3 cm; Wt 128.8 kg
[~2020-05-01 17:21] MED LIST changes: -AMLO10TA5 PO; +AMLO1TAB24 PO; +AMLO1TAB25 PO; -AMLO5TAB6 PO; +PANT40TA29 PO; -PANT40TA3 PO
--- NOTE | 2020-05-01 18:35 | REPVR ---
PROCEDURE INFORMATION: Exam: XR Chest, 1 View Exam date and time: 05/01/2020 6:01 PM Age: 65 years old Clinical indication: Left-sided chest pain TECHNIQUE: Imaging protocol: XR of the chest Views: 1 view. COMPARISON: CR PORTABLE CHEST X-RAY 12/10/2018 5:42 AM FINDINGS: Lungs: Minimal atelectasis at the left lung base. Lungs otherwise clear. Pleural space: Unremarkable. No pleural effusion. No pneumothorax. Heart/Mediastinum: Unremarkable. No cardiomegaly. Vasculature: Uncoiled thoracic aorta. Bones/joints: Unremarkable. IMPRESSION: No acute findings. Electronically signed by: Javon Lazcano On 05/01/2020 18:35:52 PM
[2020-05-01 19:00] LABS: BASO # 0.1 10^3/uL (0.0-0.2); BASO % 0.7 % (0.0-1.0); EOS # 0.2 10^3/uL (0.0-0.5); EOS % 1.5 % (0.0-3.0); HEMATOCRIT 42.2 % (42.0-52.0); HEMOGLOBIN 13.5 g/dl (13.5-17.5); LYMPH # 1.6 10^3/uL (1.5-5.0); MEAN CORPUSCULAR HEMOGLOBIN 30.7 pg (27.0-33.0); MEAN CORPUSCULAR VOLUME 95.9 fl (80.0-96.0); MONO # 0.7 10^3/uL (0.0-0.8); MONO % 5.6 % (0.0-5.0); NEUTROPHILS # 10.6 10^3/uL (1.5-8.5); NEUTROPHILS % 79.6 % (36.0-66.0); PLATELET COUNT, AUTOMATED 226 10^3/uL (150-450); WHITE BLOOD COUNT 13.3 10^3/uL (4.0-10.0)
[2020-05-01 19:30] LABS: ALBUMIN 3.4 GM/DL (3.2-5.2); ALT/SGPT 32 U/L (12-78); BILIRUBIN,DIRECT 0.2 MG/DL (0.0-0.2); BILIRUBIN,TOTAL 0.8 MG/DL (0.2-1.0); BLOOD UREA NITROGEN 41 MG/DL (7-18); CALCIUM LEVEL 9.3 MG/DL (8.8-10.2); CARBON DIOXIDE LEVEL 21 MEQ/L (21-32); CHLORIDE LEVEL 111 MEQ/L (98-107); CPK CREATINE PHOSPHOKINASE 103 U/L (39-308); CREATININE FOR GFR 1.69 MG/DL (0.70-1.30); GLOMERULAR FILTRATION RATE 43.8 (>49); GLUCOSE, FASTING 93 MG/DL (70-100); LIPASE 236 U/L (73-393); MB/CK RELATIVE INDEX 1.94 (< OR =4); POTASSIUM SERUM 4.7 MEQ/L (3.5-5.1); SODIUM LEVEL 141 MEQ/L (136-145); TOTAL PROTEIN 7.6 GM/DL (6.4-8.2); TROPONIN I < 0.02 NG/ML (< 0.10)
[2020-05-01] MEDS ORDERED: SUCRALFATE 1 GM TAB PO ONE (20:15)
[2020-05-01] MEDS ORDERED: PANTOPRAZOLE 40MG TAB (PROTONIX) PO ONE (20:15)
[2020-05-01 20:34] VITALS: BP 116/72
--- NOTE | 2020-05-29 16:57 | ECGEPIP ---
SINUS RHYTHM WITH FIRST DEGREE AV BLOCK LEFT VENTRICULAR HYPERTROPHY AND ST-T CHANGE ABNORMAL ECG SEE SCANNED DOWNTIME REPORT MTDD
== END 2020-05-01 20:47 | disposition home or self-care (01) ==
LOC: M ED 17:21
DX: K29.70 Gastritis, unspecified, without bleeding (principal); K21.9 Gastro-esophageal reflux disease without esophagitis; R94.31 Abnormal electrocardiogram [ECG] [EKG]; Z79.899 Other long term (current) drug therapy

== ENCOUNTER → 2020-07-18 | Outpatient (REF) | payer OTHER | LOC: M LAB REF 12:32 | PROVIDERS: ATTEND Internal Medicine | DX: D50.9 Iron deficiency anemia, unspecified (principal) ==

== ENCOUNTER 2020-10-11 00:34 | Emergency (ER) | payer OTHER ==
[~2020-10-11] VITALS: Ht 172.7 cm; Wt 133.5 kg
[2020-10-11] MEDS ORDERED: IRON65TA2 PO (00:45)
--- OUTSIDE RECORDS SUMMARY | 2020-10-11 00:46 | CCD | Continuity of Care Document ---
Author Author Enoc ZHU Organization Unknown Address [address] [address] Phone [phone] Care Team Providers Care French Instructor Name Role Phone Guillermo Castelan MD AUTM [phone] Werner Molina MD AUTM [phone] Rashmi Zhu DO AUTM Unavailable Braxton Pepper MD AUTM [phone] Problems Active Problems Provider Date Acute peptic ulcer without hemorrhage, w ithout perforation AND without obstruction Rashmi Zhu DO Onset: 11/09/2013 Social History Type Date Description Comments Sex Unknown Tobacco Use Start: Unknown End: Unknown Former Cigarette Smo ker 3 PKS A WEEK X 20 YRS, QUIT 09/2009 ETOH Use Rarely consumes alcohol Tobacco Use Start: Unknown End: Unknown Patient is a former smoker Allergies, Adverse Reactions, Alerts Active Allergies Reaction Severity Comments Date Prednisone not effective 10/12/2016 Inactive Allergies NKDA 10/02/2009 Medications Active Medications SIG Qnty Indications Ordering Provide r Date Amlodipine Besylate 5mg Tablets Take One Tablet By Mouth Every Day 30tabs Rashmi Zhu DO 2018 Ferrous Gluconate 324(38Fe) mg Tab lets 1 by mouth every day 30tabs Rashmi Zhu DO 01/02/2019 Sucralfate 1gm Tablets take 1 tablet by mouth three times a day before meals 90tabs Rashmi Zhu DO 12/30/2018 Pantoprazole Sodium 40mg Tablets D R 1 by mouth by mouth dialy. 90tabs Rashmi Zhu DO 12/30/2018 Aspirin 81 Low Dose 81mg Chewtabs 1 by mouth every day Rashmi Zhu DO 04/01/2018 Bisoprolol Fumarate 5mg Tablets 1 by mouth every day 90tabs Rashmi Zhu, 03/19/2015 Lasix 20mg Tablets take one tablet by mouth every other day x 1 month Unknown Immunizations CPT Code Status Date Vaccine Lot # [id number] Refused 07/19/2017 Influenza Vaccin e Quadrivalent Preser/Antibiotic Free Im Use Vital Signs Date Vital Result Comment 07/18/2020 9:05am BP Systolic 122 mmHg BP Diastolic 78 mmHg Heart Rate 71 /min Height 69.5 inches 5'9.50" Weight 282.00 lb O2 % BldC Oximetry 96 % BMI (Body Mass Index) 41.0 kg/m2 10/13/2019 10:50am BP Systolic 124 mmHg BP Diastolic 80 mmHg Heart Rate 82 /min Height 69.5 inches 5'9.50" Weight 283.00 lb O2 % BldC Oximetry 98 % RM Air BMI (Body Mass Index) 41.2 kg/m2 Results Test Acquired Date Facility Test Result H/L Range Note Total Iron Binding Capacit 07/18/[address] [id number] [phone] Iron (Fe) 70 g/dL Normal 65-175 Total Iron Binding Capacity 411 g/dL Normal 250-450 Percent Saturation 17.0 % Low 19.7-50.0 Laboratory test finding 07/18/[address] [id number] [phone] Ferritin 38 NG/ML Normal 26-388 Complete Blood Count 07/18/2020 [facility] Binder Cutter Hand: [place] [address] [phone] WBC 7.7 x10*3/UL 4.1 - 10.9 RBC 4.82 x10*6/UL 4.20 - 6.30 Hemoglobin 14.0 g/dL 12.0 - 18.0 Hematocrit 43.0 % 37.0 - 51.0 MCV 89.2 fL 80.0 - 97.0 MCH 29.1 pg 26.0 - 32.0 MCHC 32.6 g/dL 31.0 - 38.0 RDW 14.6 % High 11.6 - 13.7 PLT 259 x10*3/UL 140 - 440 MPV 7.7 FL Low 7.8 - 11.0 Lymph % 21.9 % 10.0 - 58.5 Mid % 6.2 % 1.7 - 9.3 Neut % 71.9 % 37.0 - 92.0 Lymph # 1.7 x10*3/UL 0.6 - 4.1 Mid # 0.4 x10*3/UL 0.1 - 0.6 Neut # 5.6 x10*3/UL 2.0 - 7.8 Laboratory test finding 07/18/2020 [facility] Binder Cutter Hand: [place] [address] [phone] Magnesium 2.2 mg/dL 1.8 - 2.4 Comprehensive Chem Profile 07/18/2020 [facility] Binder Cutter Hand: [place] [address] [phone] Glucose 108 mg/dL High 74 - 99 1 BUN 37 mg/dL High 7 - 18 Creatinine 1.9 mg/dL High 0.6 - 1.3 Sodium 143 mEq/L 136 - 145 Potassium 4.5 mEq/L 3.5 - 5.1 Chloride 108 mEq/L High 98 - 107 Carbon Dioxide 27 mEq/L 21 - 32 Calcium 9.1 mg/dL 8.5 - 10.1 Alk. Phosphatase 98 mg/dL 46 - 116 Total Bilirubin 0.5 mg/dL 0.2 - 1.0 Ast (Sgot) 27 U/L 15 - 37 Alt (SGPT) 33 U/L 12 - 78 Albumin 3.2 g/dL Low 3.4 - 5.0 Total Protein 7.9 g/dL 6.4 - 8.2 A/G Ratio 0.68 CALC Low 1.00 - 1.90 GFR 36 mL/min Low >60 GFR 44 mL/min Low >60 2 Lipid Profile 07/18/2020 [facility] Binder Cutter Hand: [place] [address] [phone] Cholesterol 149 mg/dL 131 - 200 Triglycerides 137 mg/dL 30 - 150 HDL Cholesterol 32 mg/dL Low 35 - 60 LDL (Calculated) 90 CALC 50 - 159 CBC With Differential 05/01/2020 [facility] [address] [place] [address] [phone] White Blood Count 13.3 10 High 4.0-10.0 Red Blood Count 4.40 10 Normal 4.30-6.10 Hemoglobin 13.5 g/dL Normal 13.5-17.5 Hematocrit 42.2 % Normal 42.0-52.0 Mean Corpuscular Volume 95.9 fl Normal 80.0-96.0 Mean Corpuscular Hemoglobin 30.7 pg Normal 27.0-33.0 Mean Corpuscular HGB Conc 32.0 g/dL Normal 32.0-36.5 Red Cell Distribution Width 15.2 % High 11.5-14.5 Platelet Count, Automated 226 10 Normal 150-450 Neutrophils % 79.6 % High 36.0-66.0 Lymph % 12.0 % Low 24.0-44.0 [place] % 5.6 % High 0.0-5.0 Eos % 1.5 % Normal 0.0-3.0 Baso % 0.7 % Normal 0.0-1.0 Immature Granulocyte % 0.6 % Normal 0-3.0 Nucleated Red Blood Cell % 0.0 % Normal 0-0 Neutrophils # 10.6 10 High 1.5-8.5 Lymph # 1.6 10 Normal 1.5-5.0 [place] # 0.7 10 Normal 0.0-0.8 Eos # 0.2 10 Normal 0.0-0.5 Baso # 0.1 10 Normal 0.0-0.2 Cardiac Marker Panel 05/01/2020 [facility] enter [address] [place] [address] [phone] CPK Creatine Phosphokinase 103 U/L Normal 39-30 8 CK-MB Value Mass 2.0 NG/ML Normal <3.6 MB/CK Relative Index 1.94 Normal < Or =4 3 Troponin I < 0.02 NG/ML Normal < 0.10 4 Liver Profile 05/01/2020 [facility] [address] [place] [address] [phone] Ast/Sgot 27 U/L Normal 7-37 Alt/SGPT 32 U/L Normal 12-78 Alkaline Phosphatase 65 U/L Normal 45-117 Bilirubin,Total 0.8 mg/dL Normal 0.2-1.0 Bilirubin,Direct 0.2 mg/dL Normal 0.0-0.2 Total Protein 7.6 GM/DL Normal 6.4-8.2 Albumin 3.4 GM/DL Normal 3.2-5.2 Albumin/Globulin Ratio 0.8 Normal Basic Metabolic Profile 05/01/[address] [address] [phone] Glucose, Fasting 93 mg/dL Normal 70-100 Blood Urea Nitrogen 41 mg/dL High 7-18 Creatinine For GFR 1.69 mg/dL High 0.70-1.30 Glomerular Filtration Rate 43.8 Low >49 5 Sodium Level 141 mEq/L Normal 136-145 Potassium Serum 4.7 mEq/L Normal 3.5-5.1 Chloride Level 111 mEq/L High 98-107 Carbon Dioxide Level 21 mEq/L Normal 21-32 Anion Gap 9 mEq/L Normal 8-16 Calcium Level 9.3 mg/dL Normal 8.8-10.2 Laboratory test finding 05/01/[address] [address] [phone] Lipase 236 U/L Normal 73-393 Basic Metabolic Profile 01/24/[address] [address] [phone] Glucose, Fasting 113 mg/dL High 70-100 Blood Urea Nitrogen 43 mg/dL High 7-18 Creatinine For GFR 1.79 mg/dL High 0.70-1.30 Glomerular Filtration Rate 41.2 Low >49 6 Sodium Level 143 mEq/L Normal 136-145 Potassium Serum 4.7 mEq/L Normal 3.5-5.1 Chloride Level 110 mEq/L High 98-107 Carbon Dioxide Level 29 mEq/L Normal 21-32 Anion Gap 4 mEq/L Low 8-16 Calcium Level 8.7 mg/dL Low 8.8-10.2 1 100-125 mg/dL PRE-DIABET ES/FASTING >126 mg/dL DIABETES/FASTING 2 CHRONIC KIDNEY DISEASE STAGI NG PER NKF STAGE I & II GFR >= 60 NORMAL TO MILDLY DECREASED STAGE III GFR 30-59 MODERATELY DECREASED STAGE IV GFR 15-29 SEVERELY DECREASED STAGE V GFR <15 VERY LITTLE GFR LEFT ESRD GFR <15 ON JOURNEYMAN GLAZIER 3 DIAGNOSIS CRITERIA MMB ng/ml Relative Index (RI) NON-AMI < or = 5 N/A GERARDO ZONE > 5 < or = 4 AMI > 5 > 4 4 Troponin I Reference Interva l for Siemens [place] LOCI: 99th Percentile= 0.00-0.045 ng/ml Risk Stratification: <= 0.10 ng/ml Decreased Risk for Adverse Clinical Events. 0.10-1.50 ng/ml Increased Risk for Adv erse Clinical Events. Evaluation of additional criterion and/or repeat testing in 2-6 hours is suggested to rule out myocardial damage. >= 1.50 ng/ml Indicative of Myocardial Injury. 5 Units are mL/min/1.73 m2 Chronic Kidney Disease Staging per NKF: Stage I & II GFR >=60 Normal to Mildly Decreased Stage III GFR 30-59 Moderately Decreased Stage IV GFR 15-29 Severely Decreased Stage V GFR <15 Very Little GFR Left ESRD GFR <15 on JOURNEYMAN GLAZIER 6 Units are mL/min/1.73 m2 Chronic Kidney Disease Staging per NKF: Stage I & II GFR >=60 Normal to Mildly Decreased Stage III GFR 30-59 Moderately Decreased Stage IV GFR 15-29 Severely Decreased Stage V GFR <15 Very Little GFR Left ESRD GFR <15 on JOURNEYMAN GLAZIER Procedures Description No Information Available Medical Devices Description No Information Available Encounters Description No Information Available Assessments Date Code Description Provider 07/18/2020 D50.9 Iron deficiency anemia, unspecif ied Rashmi Zhu,DO 07/18/2020 I71.4 Abdominal aortic aneurysm, witho ut rupture Rashmi Zhu,DO 07/18/2020 I73.9 Peripheral vascular disease, uns pecified Rashmi Zhu,DO 07/18/2020 I12.9 Hypertensive chronic kidney disease with stage 1 through stage 4 chronic kidney disease, or unspecified chronic kidney disease Rashmi Zhu,DO 07/18/2020 N18.30 Chronic kidney disease, stage 3 unspecified Rashmi Zhu,DO 07/18/2020 Z90.5 Acquired absence of kidney Rashmi Zhu,DO 07/18/2020 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
--- OUTSIDE RECORDS SUMMARY | 2020-10-11 00:46 | CCD | Continuity of Care Document ---
Author Author Enoc ZHU Organization Unknown Address [address] [address] Phone [phone] Care Team Providers Care Ticket Clerk Name Role Phone Guillermo Castelan MD AUTM [phone] Werner Molina MD AUTM [phone] Rashmi Zhu DO AUTM Unavailable Braxton Pepper MD AUTM [phone] Problems Active Problems Provider Date Acute peptic [...] 1 by mouth every day 90tabs Rashmi Duc, 03/19/2015 Lasix 20mg Tablets take one tablet by mouth every other day x 1 month Unknown Immunizations CPT Code Status Date Vaccine Lot # [id number] Refused 07/19/2017 Influenza Vaccin e Quadrivalent Preser/Antibiotic [...] Date Facility Test Result H/L Range Note Laboratory test finding 07/18/2020 [facility] [address] [place], [place] [address] [phone] Ferritin <pending> Complete Blood Count 07/18/2020 [facility] Special Education Resource Teacher: [place] [address] [phone] WBC 7.7 x10*3/UL 4.1 - 10.9 RBC [...] 2.0 - 7.8 Laboratory test finding 07/18/2020 [facility] rupesh wolff Special Education Resource Teacher: [place] [address] [phone] Magnesium 2.2 mg/dL 1.8 - 2.4 Comprehensive Chem Profile 07/18/2020 [facility] by[facility] Special Education Resource Teacher: [place] [address] [phone] Glucose 108 mg/dL High 74 - 99 [...] mL/min Low >60 2 Lipid Profile 07/18/2020 [facility] Special Education Resource Teacher: Dr Barak Buck [place], [place] [id number] [phone] Cholesterol 149 mg/dL 131 - 200 Triglycerides 137 mg/dL 30 - 150 HDL Cholesterol 32 mg/dL Low 35 - 60 LDL (Calculated) 90 CALC 50 - 159 CBC With Differential 05/01/2020 [facility] [address] [place] [address] [phone] White Blood Count 13.3 10 High 4.0-10.0 [...] 36.0-66.0 Lymph % 12.0 % Low 24.0-44.0 [place] % 5.6 % High 0.0-5.0 Eos % 1.5 % Normal 0.0-3.0 Baso % 0.7 % Normal 0.0-1.0 Immature Granulocyte % 0.6 % Normal 0-3.0 Nucleated Red Blood Cell % 0.0 % Normal 0-0 Neutrophils # 10.6 10 High 1.5-8.5 Lymph # 1.6 10 Normal 1.5-5.0 [place] # 0.7 10 Normal 0.0-0.8 Eos # 0.2 10 Normal 0.0-0.5 Baso # 0.1 10 Normal 0.0-0.2 Cardiac Marker Panel 05/01/2020 [facility] enter [address] [place] [address] [phone] CPK Creatine Phosphokinase 103 U/L Normal 39-30 8 CK-MB Value Mass 2.0 NG/ML Normal <3.6 MB/CK Relative Index 1.94 Normal < Or =4 3 Troponin I < 0.02 NG/ML Normal < 0.10 4 Liver Profile 05/01/2020 [facility] nter [address] [place] [address] [phone] Ast/Sgot 27 U/L Normal 7-37 Alt/SGPT 32 U/L Normal 12-78 Alkaline Phosphatase 65 U/L Normal 45-117 Bilirubin,Total 0.8 mg/dL Normal 0.2-1.0 Bilirubin,Direct 0.2 mg/dL Normal 0.0-0.2 Total Protein 7.6 GM/DL Normal 6.4-8.2 Albumin 3.4 GM/DL Normal 3.2-5.2 Albumin/Globulin Ratio 0.8 Normal Basic Metabolic Profile 05/01/2020 [facility] [address] [place] [address] [phone] Glucose, Fasting 93 mg/dL Normal 70-100 Blood [...] mg/dL Normal 8.8-10.2 Laboratory test finding 05/01/2020 [facility] [address] [place] [address] [phone] Lipase 236 U/L Normal 73-393 Basic Metabolic Profile 01/24/2020 [place] [address] [place] [address] [phone] Glucose, Fasting 113 mg/dL High 70-100 Blood [...] LITTLE GFR LEFT ESRD GFR <15 ON LEVELMAN 3 DIAGNOSIS CRITERIA MMB ng/ml Relative Index (RI) NON-AMI < or = 5 N/A GERARDO ZONE > 5 < or = 4 AMI > 5 > 4 4 Troponin I Reference Interva l for [employer] LOCI: 99th Percentile= 0.00-0.045 ng/ml Risk Stratification: [...] Little GFR Left ESRD GFR <15 on LEVELMAN 6 Units are mL/min/1.73 m2 Chronic Kidney Disease Staging per NKF: Stage I & II GFR >=60 Normal to Mildly Decreased Stage III GFR 30-59 Moderately Decreased Stage IV GFR 15-29 Severely Decreased Stage V GFR <15 Very Little GFR Left ESRD GFR <15 on LEVELMAN Procedures Description No Information Available Medical Devices [...] Rashmi Zhu,DO 07/18/2020 E78.5 Hyperlipidemia, unspecified Lester Zhu,DO 07/18/2020 R73.01 Impaired fasting glucose Rashmi ray,DO 07/18/2020 K29.60 Other gastritis without bleeding Rashmi Zhu DO Plan of Treatment Future Appointment(s):* 01/16/2021 8:00 am - Rashmi Zhu DO at [facility] 07/18/2020 - Rashmi Zhu DO* [...]
--- OUTSIDE RECORDS SUMMARY | 2020-10-11 00:46 | CCD | Continuity of Care Document ---
Author Author Enoc ZHU Organization Unknown Address [address] [address] Phone [phone] Care Team Providers Care Workforce Analyst Name Role Phone Guillermo Castelan MD AUTM [phone] Werner Molina MD AUTM [phone] Rashmi Zhu DO AUTM Unavailable Braxton Pepper MD AUTM [phone] Problems Active Problems Provider Date Acute peptic [...] CPT Code Status Date Vaccine Lot # [id number] Refused 07/19/2017 Influenza Vaccin e Quadrivalent Preser/Antibiotic [...] Range Note Total Iron Binding Capacit 07/18/[address] [id number] [phone] Iron (Fe) 70 g/dL Normal 65-175 Total Iron Binding Capacity 411 g/dL Normal 250-450 Percent Saturation 17.0 % Low 19.7-50.0 Laboratory test finding 07/18/[address] [id number] [phone] Ferritin 38 NG/ML Normal 26-388 Complete Blood Count 07/18/2020 [facility] Medical Appliance Maker: [place] [address] [phone] WBC 7.7 x10*3/UL 4.1 - 10.9 RBC [...] 2.0 - 7.8 Laboratory test finding 07/18/2020 [facility] Medical Appliance Maker: [place] [address] [phone] Magnesium 2.2 mg/dL 1.8 - 2.4 Comprehensive Chem Profile 07/18/2020 [facility] Medical Appliance Maker: [place] [address] [phone] Glucose 108 mg/dL High 74 - 99 [...] mL/min Low >60 2 Lipid Profile 07/18/2020 [facility] Medical Appliance Maker: [place] [address] [phone] Cholesterol 149 mg/dL 131 - 200 Triglycerides 137 mg/dL 30 - 150 HDL Cholesterol 32 mg/dL Low 35 - 60 LDL (Calculated) 90 CALC 50 - 159 CBC With Differential 05/01/2020 [facility] [address] [place] [address] [phone] White Blood Count 13.3 10 High 4.0-10.0 [...] 36.0-66.0 Lymph % 12.0 % Low 24.0-44.0 [place] % 5.6 % High 0.0-5.0 Eos % 1.5 % Normal 0.0-3.0 Baso % 0.7 % Normal 0.0-1.0 Immature Granulocyte % 0.6 % Normal 0-3.0 Nucleated Red Blood Cell % 0.0 % Normal 0-0 Neutrophils # 10.6 10 High 1.5-8.5 Lymph # 1.6 10 Normal 1.5-5.0 [place] # 0.7 10 Normal 0.0-0.8 Eos # 0.2 10 Normal 0.0-0.5 Baso # 0.1 10 Normal 0.0-0.2 Cardiac Marker Panel 05/01/2020 [facility] enter [address] [place] [address] [phone] CPK Creatine Phosphokinase 103 U/L Normal 39-30 8 CK-MB Value Mass 2.0 NG/ML Normal <3.6 MB/CK Relative Index 1.94 Normal < Or =4 3 Troponin I < 0.02 NG/ML Normal < 0.10 4 Liver Profile 05/01/2020 [facility] nter [address] [place] [address] [phone] Ast/Sgot 27 U/L Normal 7-37 Alt/SGPT 32 U/L Normal 12-78 Alkaline Phosphatase 65 U/L Normal 45-117 Bilirubin,Total 0.8 mg/dL Normal 0.2-1.0 Bilirubin,Direct 0.2 mg/dL Normal 0.0-0.2 Total Protein 7.6 GM/DL Normal 6.4-8.2 Albumin 3.4 GM/DL Normal 3.2-5.2 Albumin/Globulin Ratio 0.8 Normal Basic Metabolic Profile 05/01/[address] [address] [phone] Glucose, Fasting 93 mg/dL Normal 70-100 Blood [...] mg/dL Normal 8.8-10.2 Laboratory test finding 05/01/[address] [address] [phone] Lipase 236 U/L Normal 73-393 Basic Metabolic Profile 01/24/[address] [address] [phone] Glucose, Fasting 113 mg/dL High 70-100 Blood [...] LITTLE GFR LEFT ESRD GFR <15 ON LIBRARY SERVICES ASSISTANT 3 DIAGNOSIS CRITERIA MMB ng/ml Relative Index (RI) NON-AMI < or = 5 N/A GERARDO ZONE > 5 < or = 4 AMI > 5 > 4 4 Troponin I Reference Interva l for Siemens [place] LOCI: 99th Percentile= 0.00-0.045 ng/ml Risk Stratification: [...] Little GFR Left ESRD GFR <15 on LIBRARY SERVICES ASSISTANT 6 Units are mL/min/1.73 m2 Chronic Kidney Disease Staging per NKF: Stage I & II GFR >=60 Normal to Mildly Decreased Stage III GFR 30-59 Moderately Decreased Stage IV GFR 15-29 Severely Decreased Stage V GFR <15 Very Little GFR Left ESRD GFR <15 on LIBRARY SERVICES ASSISTANT Procedures Description No Information Available Medical Devices Description No Information Available Encounters Type Date Location Provider Dx Diagnosis Office Visit 07/18/2020 9:00a [facility] Rashmi Zhu ,DO D50.9 Iron deficiency anemia, unspecified I71.4 Abdominal aortic aneurysm, w ithout rupture I73.9 Peripheral vascular disease, unspecified I12.9 Hypertensive chronic kidney disease w stg 1-4/unsp chr kdny N18.30 Chronic kidney disease, stag e 3 unspecified Z90.5 Acquired absence of kidney Z85.528 Personal history of other ma lignant neoplasm of kidney E78.5 Hyperlipidemia, unspecified R73.01 Impaired fasting glucose K29.60 Other gastritis without blee ding Assessments Date Code Description Provider 07/18/2020 D50.9 Iron deficiency anemia, unspecif ied Rashmi Zhu, 07/18/2020 I71.4 Abdominal aortic aneurysm, witho ut rupture Rashmi Zhu DO 07/18/2020 I73.9 Peripheral vascular disease, uns pecified Rashmi Zhu DO 07/18/2020 I12.9 Hypertensive chronic kidney disease with stage 1 through stage 4 chronic kidney disease, or unspecified chronic kidney disease Rashmi Zhu, 07/18/2020 N18.30 Chronic kidney disease, stage 3 [...] 8:00 am - Rashmi Zhu DO at [facility] 07/18/2020 - Rashmi Zhu DO* [...]
--- OUTSIDE RECORDS SUMMARY | 2020-10-11 00:47 | CCD ---
Author Author [facility] Organization [facility] Address Unknown Phone Unavailable Care Team Providers Care Payroll Director Name Role Phone Duc, Jessie DO Unavailable Unavailable Duc, Jessie DO Unavailable Unavailable Duc, Jessie DO Unavailable Unavailable Duc, Jessie DO Unavailable Unavailable Duc, Jessie DO Unavailable Unavailable Duc, Jessie DO Unavailable Unavailable Duc, Jessie DO Unavailable Unavailable Duc, Jessie DO Unavailable Unavailable Duc, Jessie DO Unavailable Unavailable Duc, Jessie DO Unavailable Unavailable Duc, Jessie DO Unavailable Unavailable Duc, Jessie DO Unavailable Unavailable Duc, Jessie DO Unavailable Unavailable Duc, Jessie DO Unavailable Unavailable Duc, Jessie DO Unavailable Unavailable Duc, Jessie DO Unavailable Unavailable Duc, Jessie DO Unavailable Unavailable Duc, Jessie DO Unavailable Unavailable Duc, Jessie DO Unavailable Unavailable Duc, Jessie DO Unavailable Unavailable Duc, Jessie DO Unavailable Unavailable Duc, Jessie DO Unavailable Unavailable Duc, Jessie DO Unavailable Unavailable Duc, Jessie DO Unavailable Unavailable Duc, Jessie DO Unavailable Unavailable Duc, Jessie DO Unavailable Unavailable Duc, Jessie DO Unavailable Unavailable Duc, Jessie DO Unavailable Unavailable Duc, Jessie DO Unavailable Unavailable Duc, Jessie DO Unavailable Unavailable Duc, Jessie DO Unavailable Unavailable Duc, Jessie DO Unavailable Unavailable Duc, Jessie DO Unavailable Unavailable Duc, Jessie DO Unavailable Unavailable Duc, Jessie DO Unavailable Unavailable Duc, Jessie DO Unavailable Unavailable Duc, Jessie DO Unavailable Unavailable Duc, Jessie DO Unavailable Unavailable Duc, Jessie DO Unavailable Unavailable Dcu, Jessie DO Unavailable Unavailable Duc, Jessie DO Unavailable Unavailable Duc, Jessie DO Unavailable Unavailable Duc, Jessie DO Unavailable Unavailable Duc, Jessie DO Unavailable Unavailable Duc, Jessie DO Unavailable Unavailable Duc, Jessie DO Unavailable Unavailable Duc, Jessie DO Unavailable Unavailable Duc, Jessie DO Unavailable Unavailable Duc, Jessie DO Unavailable Unavailable Duc, Jessie DO Unavailable Unavailable Duc, Jessie DO Unavailable Unavailable Duc, Jessie DO Unavailable Unavailable Duc, Jessie DO Unavailable Unavailable Duc, Jessie DO Unavailable Unavailable Duc, Jessie DO Unavailable Unavailable Duc, Jessie DO Unavailable Unavailable Duc, Jessie DO Unavailable Unavailable Duc, Jessie DO Unavailable Unavailable Duc, Jessie DO Unavailable Unavailable Duc, Jessie DO Unavailable Unavailable Duc, Jessie DO Unavailable Unavailable Duc, Jessie DO Unavailable Unavailable Duc, Jessie DO Unavailable Unavailable Duc, Jessie DO Unavailable Unavailable Duc, Jessie DO Unavailable Unavailable Duc, Jessie DO Unavailable Unavailable Duc, Jessie DO Unavailable Unavailable Duc, Jessie DO Unavailable Unavailable Duc, Jessie DO Unavailable Unavailable Duc, Jessie DO Unavailable Unavailable Duc, Jessie DO Unavailable Unavailable Duc, Jessie DO Unavailable Unavailable Ban BURGOS Unavailable Unavailable ShantelleMeredith kuoed MD Unavailable Unavailable ShantelleMeredith Braxton MD Unavailable Unavailable ShantelleMeredith Braxton MD Unavailable Unavailable Shantelle, Meredith Braxton MD Unavailable Unavailable Shantelle, N Braxton MD Unavailable Unavailable Shantelle, N Braxton MD Unavailable Unavailable ShantelleMeredith Braxton MD Unavailable Unavailable ShantelleMeredith Braxton MD Unavailable Unavailable Shantelle N Braxton MD Unavailable Unavailable Shantelle, N Braxton MD Unavailable Unavailable Shantelle, N Braxton MD Unavailable Unavailable Shantelle N Braxton MD Unavailable Unavailable Shantelle, N Braxton MD Unavailable Unavailable Shantelle, N Braxton MD Unavailable Unavailable Shantelle N Braxton MD Unavailable Unavailable Shantelle, N Braxton MD Unavailable Unavailable Shantelle, N Braxton MD Unavailable Unavailable Shantelle, N Braxton MD Unavailable Unavailable Shantelle, N Braxton MD Unavailable Unavailable Shantelle, N Braxton MD Unavailable Unavailable Shantelle, N Braxton MD Unavailable Unavailable Shantelle N Braxton MD Unavailable Unavailable Shantelle N Braxton MD Unavailable Unavailable Shantelle, N Braxton MD Unavailable Unavailable Shantelle, N Braxton MD Unavailable Unavailable Shantelle, N Braxton MD Unavailable Unavailable Shantelle, N Braxton MD Unavailable Unavailable Shantelle, N Braxton MD Unavailable Unavailable Shantelle, N Braxton MD Unavailable Unavailable Shantelle, N Braxton MD Unavailable Unavailable Shantelle, N Braxton MD Unavailable Unavailable Shantelle, N Braxton MD Unavailable Unavailable Shantelle, N Braxton MD Unavailable Unavailable Shantelle, N Braxton MD Unavailable Unavailable Shantelle, N Braxton MD Unavailable Unavailable Shantelle, N Braxton MD Unavailable Unavailable Shantelle, N Braxton MD Unavailable Unavailable Shantelle, N Braxton MD Unavailable Unavailable Shantelle, N Braxton MD Unavailable Unavailable Shantelle, N Braxton MD Unavailable Unavailable Shantelle, N Braxton MD Unavailable Unavailable Shantelle, N Braxton MD Unavailable Unavailable Shantelle, N Braxton MD Unavailable Unavailable Shantelle, N Braxton MD Unavailable Unavailable Shantelle, N Braxton MD Unavailable Unavailable Shantelle, N Braxton MD Unavailable Unavailable Shantelle, N Braxton MD Unavailable Unavailable Shantelle, N Braxton MD Unavailable Unavailable Shantelle, N Braxton MD Unavailable Unavailable Shantelle, N Braxton MD Unavailable Unavailable Shantelle, N Braxton MD Unavailable Unavailable Shantelle, N Braxton MD Unavailable Unavailable Shantelle, N Braxton MD Unavailable Unavailable Shantelle, N Braxton MD Unavailable Unavailable Shantelle, N Braxton MD Unavailable Unavailable Shantelle, N Braxton MD Unavailable Unavailable Shantelle, N Braxton MD Unavailable Unavailable Shantelle, N Braxton MD Unavailable Unavailable Shantelle, N Braxton MD Unavailable Unavailable Shantelle, N Braxton MD Unavailable Unavailable Shantelle, N Braxton MD Unavailable Unavailable Shantelle, N Braxton MD Unavailable Unavailable Shantelle, N Braxton MD Unavailable Unavailable Shantelle, N Braxton MD Unavailable Unavailable Shantelle, N Braxton MD Unavailable Unavailable Shantelle, N Braxton MD Unavailable Unavailable Shantelle, N Braxton MD Unavailable Unavailable Shantelle, N Braxton MD Unavailable Unavailable Shantelle, N Braxton MD Unavailable Unavailable Shantelle, N Braxton MD Unavailable Unavailable Shantelle, N Braxton MD Unavailable Unavailable Shantelle, N Braxton MD Unavailable Unavailable Shantelle, N Braxton MD Unavailable Unavailable Shantelle, N Braxton MD Unavailable Unavailable Shantelle, N Braxton MD Unavailable Unavailable Shantelle, N Braxton MD Unavailable Unavailable Shantelle, N Braxton MD Unavailable Unavailable Shantelle, N Braxton MD Unavailable Unavailable Shantelle, N Braxton MD Unavailable Unavailable Shantelle, N Braxton MD Unavailable Unavailable Shantelle, N Braxton MD Unavailable Unavailable Shantelle, N Braxton MD Unavailable Unavailable Shantelle, N Braxton MD Unavailable Unavailable Shantelle, N Braxton MD Unavailable Unavailable Shantelle, N Braxton MD Unavailable Unavailable Shantelle, N Braxton MD Unavailable Unavailable Shantelle, N Braxton MD Unavailable Unavailable Shantelle, N Braxton MD Unavailable Unavailable Shantelle, N Braxton MD Unavailable Unavailable Shantelle, N Braxton MD Unavailable Unavailable Shantelle, N Braxton MD Unavailable Unavailable Shantelle, N Braxton MD Unavailable Unavailable Shantelle, N Braxton MD Unavailable Unavailable Shantelle, N Braxton MD Unavailable Unavailable Shantelle, N Braxton MD Unavailable Unavailable Shantelle, N Braxton MD Unavailable Unavailable Shantelle, N Braxton MD Unavailable Unavailable Shantelle, N Braxton MD Unavailable Unavailable Shantelle, N Braxton MD Unavailable Unavailable Shantelle, N Braxton MD Unavailable Unavailable Shantelle, N Braxton MD Unavailable Unavailable Shantelle, N Braxton MD Unavailable Unavailable Shantelle, N Braxton MD Unavailable Unavailable Shantelle, N Braxton MD Unavailable Unavailable Shantelle, N Braxton MD Unavailable Unavailable Shantelle, N Braxton MD Unavailable Unavailable Shantelle, N Braxton MD Unavailable Unavailable Shantelle, N Braxton MD Unavailable Unavailable Shantelle, N Braxton MD Unavailable Unavailable Shantelle, N Braxton MD Unavailable Unavailable Shantelle, N Braxton MD Unavailable Unavailable Shantelle, N Braxton MD Unavailable Unavailable Shantelle, N Braxton MD Unavailable Unavailable Shantelle, N Braxton MD Unavailable Unavailable Shantelle, N Braxton MD Unavailable Unavailable Shantelle, N Braxton MD Unavailable Unavailable Shantelle, N Braxton MD Unavailable Unavailable Shantelle, N Braxton MD Unavailable Unavailable Shantelle, N Braxton MD Unavailable Unavailable Shantelle, N Braxton MD Unavailable Unavailable Shantelle, N Braxton MD Unavailable Unavailable Shantelle, N Braxton MD Unavailable Unavailable Shantelle, N Braxton MD Unavailable Unavailable Shantelle, N Braxton MD Unavailable Unavailable Shantelle, N Braxton MD Unavailable Unavailable Shantelle, N Braxton MD Unavailable Unavailable Shantelle, N Braxton MD Unavailable Unavailable Shantelle, N Braxton MD Unavailable Unavailable Shantelle, N Braxton MD Unavailable Unavailable Shatnelle, N Braxton MD Unavailable Unavailable Shantelle, N Braxton MD Unavailable Unavailable Shantelle, N Braxton MD Unavailable Unavailable Shantelle, N Braxton MD Unavailable Unavailable Shantelle, N Braxton MD Unavailable Unavailable Shantelle, N Braxton MD Unavailable Unavailable Shantelle, N Braxton MD Unavailable Unavailable Shantelle, N Braxton MD Unavailable Unavailable Shantelle, N Braxton MD Unavailable Unavailable Shantelle, N Braxton MD Unavailable Unavailable Shantelle, N Braxton MD Unavailable Unavailable Shantelle, N Braxton MD Unavailable Unavailable Shantelle, N Braxton MD Unavailable Unavailable Shantelle, N Braxton MD Unavailable Unavailable Shantelle, N Braxton MD Unavailable Unavailable Shantelle, N Braxton MD Unavailable Unavailable Shantelle, N Braxton MD Unavailable Unavailable Shantelle, N Braxton MD Unavailable Unavailable Shantelle, N Braxton MD Unavailable Unavailable Shantelle, N Braxton MD Unavailable Unavailable Shantelle, N Braxton MD Unavailable Unavailable Shantelle, N Braxton MD Unavailable Unavailable Shantelle, N Braxton MD Unavailable Unavailable Shantelle, N Braxton MD Unavailable Unavailable Shantelle, N Braxton MD Unavailable Unavailable Shantelle, N Braxton MD Unavailable Unavailable Shantelle, N Braxton MD Unavailable Unavailable Shantelle, N Braxton MD Unavailable Unavailable Shantelle, N Braxton MD Unavailable Unavailable Shantelle, N Braxton MD Unavailable Unavailable Shantelle, N Braxton MD Unavailable Unavailable Re-disclosure Warning The records that you are about to access may contain information from federally-assisted alcohol or drug abuse programs. If such information is present, then the following federally mandated warning applies: This information has been disclosed to you from records protected by federal confidentiality rules (42 CFR part 2). The federal rules prohibit you from making any further disclosure of this information unless further disclosure is expressly permitted by the written consent of the person to whom it pertains or as otherwise permitted by 42 CFR part 2. A general authorization for the release of medical or other information is NOT sufficient for this purpose. The Federal rules restrict any use of the information to criminally investigate or prosecute any alcohol or drug abuse patient.The records that you are about to access may contain highly sensitive health information, the redisclosure of which is protected by Article 27-F of the [facility] Public Health law. If you continue you may have access to information: Regarding HIV / AIDS; Provided by facilities licensed or operated by the [facility] Office of Mental Health; or Provided by the [facility] Office for People With Developmental Disabilities. If such information is present, then the following [facility] mandated warning applies: This information has been disclosed to you from confidential records which are protected by state law. State law prohibits you from making any further disclosure of this information without the specific written consent of the person to whom it pertains, or as otherwise permitted by law. Any unauthorized further disclosure in violation of state law may result in a fine or long-term sentence or both. A general authorization for the release of medical or other information is NOT sufficient authorization for further disc losure. Family History Family Member Name Family Member Gender Family Member Status Date o f Status Description Data Source(s) Unknown Unknown Problem [facility] ([facility]) Unknown Unknown Problem [facility] ([facility]) Unknown Unknown Problem [facility] ([facility]) Unknown Unknown Problem [facility] ([facility]) Unknown Male Problem [facility] ([facility] [place]) Encounters Encounter Providers Location Date Indications Data Source(s ) Outpatient Attender: Jessie Fuentes 07/18 08:00:00 AM EST [facility] ([facility] ) Outpatient Attender: Braxton Pepper MD Main Office 06/26/2020 09:15:00 AM EDT [facility] ([facility]) Outpatient Attender: Braxton Pepper MD Main Office 02/19/2020 09:30:00 AM EDT [facility] ([facility]) Outpatient Attender: Jessie Fuentes 10/13 10:00:00 AM EST [facility] ([facility] ) Outpatient Attender: Braxton Pepper MDReferrer: Braxton Pepper MD [facility] 09/07/2019 12:00:00 AM EST - 09/07/2019 01:47:[address] [facility] Inpatient Attender: FABIO Alanis nder: Braxton Pepper MDAdmitter: Braxton Pepper MD [id number] 08/25/2019 04:18:43 PM EST - 09/15/2019 10:23:00 AM [facility] Patient discharged. Inpatient Attender: Braxton Pepper MDAtten rishabh: FABIO BURGOSAdmitter: Braxton Pepper MD [id number] 07/25/2019 07:57:01 AM EST - 08/09/2019 01:37:00 PM EST [facility] Patient discharged. Medications Medication Brand Name Start Date Product Form Dose Route Admi nistrative Instructions Pharmacy Instructions Status Indications Reaction Description Data Source(s) 324 mg (38 mg iron) 07/16/2020 12:00:00 AM EST tablet 30 TAKE ONE TABLET BY MOUTH EVERY DAY TAKE ONE TABLET BY MOUTH EVERY DAY SOLD: 07/16/2020 [facility] pantoprazole 40 MG Delayed Release Oral Tablet PANTOPRAZOLE SODIUM 07/16/2020 12:00:00 AM EST tablet,delayed release (DR/EC) 90 T IVON ONE TABLET BY MOUTH EVERY DAY TAKE ONE TABLET BY MOUTH EVERY DAY SOLD: 07/16/2020 [facility] 324 mg (38 mg iron) 07/16/2020 12:00:00 AM EST tablet 30 TAKE ONE TABLET BY MOUTH EVERY DAY TAKE ONE TABLET BY MOUTH EVERY DAY SOLD: 08/24/2020 [facility] 5 mg 07/16/2020 12:00:00 AM EST tablet 90 TAKE ONE TABLET BY MOUTH EVERY DAY TAKE ONE TABLET BY MOUTH EVERY DAY SOLD: 07/16/2020 [facility] 324 mg (38 mg iron) 07/16/2020 12:00:00 AM EST tablet 30 TAKE ONE TABLET BY MOUTH EVERY DAY TAKE ONE TABLET BY MOUTH EVERY DAY SOLD: 09/27/2020 [facility] 5 mg 07/16/2020 12:00:00 AM EST tablet 30 TAKE ONE TABLET BY MOUTH EVERY DAY TAKE ONE TABLET BY MOUTH EVERY DAY SOLD: 09/27/2020 [facility] 5 mg 07/16/2020 12:00:00 AM EST tablet 30 TAKE ONE TABLET BY MOUTH EVERY DAY TAKE ONE TABLET BY MOUTH EVERY DAY SOLD: 07/16/2020 [facility] 1 gram 07/16/2020 12:00:00 AM EST tablet 90 TAKE ONE TABLET BY MOUTH THREE TIMES A DAY BEFORE MEALS TAKE ONE TABLET BY MOUTH THREE TIMES A D AY BEFORE MEALS SOLD: 07/16/2020 [facility] 5 mg 07/16/2020 12:00:00 AM EST tablet 30 TAKE ONE TABLET BY MOUTH EVERY DAY TAKE ONE TABLET BY MOUTH EVERY DAY SOLD: 08/24/2020 [facility] 1 gram 05/02/2020 12:00:00 AM EDT tablet 120 TAKE ONE TABLET BY MOUTH FOUR TIMES A DAY TAKE ONE TABLET BY MOUTH FOUR TIMES A DAY SOLD: 05/02/2020 [facility] 40 mg 05/02/2020 12:00:00 AM EDT tablet,delayed release (DR/EC) 30 TAKE ONE TABLET BY MOUTH EVERY DAY TAKE ONE TABLET BY MOUTH EVERY DAY SOLD: 05/02/2020 [facility] 5 mg 11/28/2019 12:00:00 AM EDT tablet 30 TAKE ONE TABLET BY MOUTH EVERY DAY TAKE ONE TABLET BY MOUTH EVERY DAY SOLD: 05/02/2020 [facility] 5 mg 11/28/2019 12:00:00 AM EDT tablet 30 TAKE ONE TABLET BY MOUTH EVERY DAY TAKE ONE TABLET BY MOUTH EVERY DAY SOLD: 11/29/2019 [facility] 5 mg 11/28/2019 12:00:00 AM EDT tablet 30 TAKE ONE TABLET BY MOUTH EVERY DAY TAKE ONE TABLET BY MOUTH EVERY DAY SOLD: 01/25/2020 [facility] 5 mg 11/28/2019 12:00:00 AM EDT tablet 30 TAKE ONE TABLET BY MOUTH EVERY DAY TAKE ONE TABLET BY MOUTH EVERY DAY SOLD: 03/19/2020 [facility] Furosemide 40 MG Oral Tablet [Lasix] Lasix 09/22/2019 12:00:00 AM EST ORAL completed [facility] ([facility]) 40 mg 09/22/2019 12:00:00 AM EST tablet 10 TAKE ONE TABLET BY MOUTH EVERY OTHER DAY TAKE ONE TABLET BY MOUTH EVERY OTHER DAY SOLD: 09/23/2019 [facility] Bisoprolol Fumarate 5 MG Oral Tablet bisoprolol (ZEBET A) tablet 5 mg bisoprolol (ZEBETA) tablet 5 mg 09/15/2019 09:00:00 AM EST 5 mg Oral active 5 mg, Oral, Daily, First dose on Wed09/15/19 at 0900
Hold for SBP<100; HR<55
[facility] Medication administered onsite pantoprazole 40 MG Delayed Release Oral Tablet pantoprazole (PROTONIX) EC tablet 40 mg pantoprazole (PROTONIX) EC tablet 40 mg 09/15/2019 09:00:[address] 40 mg Oral active Gastroesophageal Reflux Diseas e 40 mg, Oral, Daily, Indications: Gastroesophageal Reflux Disease, First dose on Wed09/15/19 at 0900 [facility] Gastroesophageal Reflux Disease Medication administered onsite Amlodipine 5 MG Oral Tablet amLODIPine (NORVASC) table t 5 mg amLODIPine (NORVASC) tablet 5 mg 09/15/2019 09:00:00 AM EST 5 mg Oral active 5 mg, Oral, Daily, First dose on Wed09/15/19 at 0900
Hold for SBP<110
[facility] Medication administered onsite Aspirin 81 MG Delayed Release Oral Tablet aspirin EC t ablet 81 mg aspirin EC tablet 81 mg 09/15/2019 09:00:00 AM EST 81 mg Oral activ e 81 mg, Oral, Daily, First dose on Wed09/15/19 at 0900 [facility] Medication administered onsite ferrous gluconate 324 MG Oral Tablet ferrous gluconate (FERGON) tablet 324 mg ferrous gluconate (FERGON) tablet 324 mg 09/15/2019 07:00:00 AM EST 324 mg Oral active 324 mg, Oral, Daily with breakfast, First dose on Wed09/15/19 at 0700
separate as far as possible from antacids, take with food
[facility] Medication administered onsite heparin (porcine) injection 5,000 Units 66873-061-32 09/15/19 06:00:00 AM EST 5000 U Subcutaneous active 5,000 Units , Subcutaneous, Every 8 hours (scheduled), First dose on Wed09/15/19 at 0600, PACU & Post-op
If platelet count is less than 100,000 or hematocrit is less than 25, or if there is a 5 point decrease in hematocrit, do not give the dose and call physician/designee.
[facility] Medication administered onsite Acetaminophen 325 MG / Hydrocodone Nolvia trate 5 MG Oral Tablet HYDROcodone- acetaminophen (NORCO) 5-325 MG per tablet HYDROcodone-acetaminophen (NORCO) 5- 325 MG per tablet 09/15/2019 12:00:00 AM EST 1 {tbl} Oral active Take 1 tablet by mouth every 6 (six) hours as needed for pain Max Daily Amount: 4 tablets [facility] 5-325 mg 09/15/2019 12:00:00 AM EST tablet 20 TAKE ONE TABLET BY MOUTH EVERY 6 HOURS NEEDED FOR PAIN MAXIMUM DAILY DOSE = 4 TABLETS TAKE ONE TABLET BY MOUTH EVERY 6 HOURS NEEDED FOR PAIN MAXIMUM DAILY DOSE = 4 TABLETS SOLD: 09/15/2019 [facility] cefazolin (ANCEF) injection 2 g 09/14/2019 08:00:00 PM EST 2 g Intravenous active Perioperative Pharmacoprophylaxis 2 g, Intravenous, Administer over 6 Minutes, Every 8 hours (relative), First dose on Yvette 09/14/19 at 2000, For 24 hours, PACU & Post-op
Start 8 hours after pre-op doseRN may administer IV push or infuse this medication through syringe adapter set ref [phone]. Flush line after use
[facility] Perioperative Pharmacoprophylaxis Medication administered onsite Oxycodone Hydrochloride 5 MG Oral Tablet oxyCODONE (ROXICODONE) immediate release tablet 5-10 mg oxyCODONE (ROXICODONE) immediate release tablet 5-10 m g 09/14/2019 07:01:26 PM EST Oral active 5-10 mg, Oral, Every 4 hours PRN, moderate pain (4-6), severe pain (7-10), Starting Yvette 09/14/19 at 1901, For 161 hours, PACU & Post-op [facility] Medication administered onsite sennosides, DETENTION 8.6 MG Oral Tablet senna (SENOKOT) tab let 8.6 mg senna (SENOKOT) tablet 8.6 mg 09/14/2019 02:00:00 PM EST 8.6 mg Oral act sylvia 8.6 mg, Oral, Daily, First dose on Yvette 09/14/19 at 1400, PACU & Post-op [facility] Medication administered onsite Sucralfate 1000 MG Oral Tablet sucralfate (CARAFATE) t ablet 1 g sucralfate (CARAFATE) tablet 1 g 09/14/2019 02:00:00 PM EST 1 g Oral active 1 g, Oral, 3 times daily, First dose on Yvette 09/14/19 at 1400
If patient is unable to swallow the tablet, Nursing should dissolve tablet in 10-15 ml of water prior to administration. Sucralfate should NOT be administered via feeding tubes.
[facility] Medication administered onsite normal saline flush 0.9 % injection 3 mL 35124-832-38 09/14/2019 02:00:00 PM EST 3 mL Intravenous active 3 mL , Intravenous, PROTOCOL, First dose on Yvette 09/14/19 at 1400, PACU & Post-op
With good PO intake (600 ml X 1 shift)
[facility] Medication administered onsite sodium chloride 0.9% (NS) infusion 8855-1061-64 09/14/2019 02:00:00 P M EST Intravenous aborted at 100 mL/hr, Intravenous, Continuous, Starting Yvette 09/14/19 at 1400 [facility] Medication administered onsite bismuth subsalicylate 17.5 MG/ML Oral Eric spension bismuth subsalicylate (PEPTO BISMOL) 262 MG/15ML suspension 15 mL bismuth subsalicylate (PEPTO BISMOL) 262 MG/15ML suspension 15 mL 09/14/2019 12:53:26 PM EST 15 mL Oral active 15 mL, Oral, Every 6 hours PRN, indigestion, Starting Yvette 09/14/19 at 1253 [facility] Medication administered onsite Magnesium Hydroxide 80 MG/ML Oral Suspen gee magnesium hydroxide (MILK OF MAGNESIA) 400 MG/5ML suspension 30 mL magnesium hydroxide (MILK OF MAGNESIA) 4 00 MG/5ML suspension 30 mL 09/14/2019 12:53:26 PM EST 30 mL Oral active 30 mL, Oral, Daily PRN, constipation, Starting Yvette 09/14/19 at 1253, PACU & Post-op [facility] Medication administered onsite Bisacodyl 10 MG Rectal Suppository bisacodyl (DULCOLAX ) suppository 10 mg bisacodyl (DULCOLAX) suppository 10 mg 09/14/2019 12:53:26 PM EST 10 mg Rectal active 10 mg, Rectal, Daily PRN, constipation, Starting Yvette 09/14/19 at 1253, PACU & Post-op [facility] Medication administered onsite POLYETHYLENE GLYCOL 3350 142 MG/ML Oral Solution polyethylene glycol (GLYCOLAX) packet 17 g polyethylene glycol (GLYCOLAX) packet 17 g 09/14/2019 12:53:26 PM EST 17 g Oral active 17 g, Or al, Daily PRN, if no result from milk of magnesia (MOM), Starting Yvette 09/14/19 at 1253, PACU & Post-op [facility] Medication administered onsite ondansetron (ZOFRAN) injection 4 mg [id number] 09/14/2019 12:53:2 6 PM EST 4 mg Intravenous active 4 mg, In travenous, As needed, nausea, vomiting, Starting Yvette 09/14/19 at 1253, PACU & Post-op
Give for one dose if no response from metoclopramide
[facility] Medication administered onsite 2 ML Metoclopramide 5 MG/ML Prefilled Sy ringe metoclopramide (REGLAN) injection 10 mg metoclopramide (REGLAN) injection 10 mg 09/14/2019 12:53:[address] 10 mg Intravenous active 10 mg, I ntravenous, Every 6 hours PRN, heartburn, Starting Yvette 09/14/19 at 1253, PACU & Post-op [facility] Medication administered onsite Acetaminophen 325 MG Oral Tablet acetaminophen (TYLENO L) 325 MG tablet 650 mg acetaminophen (TYLENOL) 325 MG tablet 650 mg 09/14/2019 12:53:25 PM EST 650 mg Oral active 650 mg, Or al, Every 4 hours PRN, headaches, fever, temp greater than 101.6, Starting Yvette 09/14/19 at 1253, PACU & Post-op
"Maximum dose of acetaminophen is 4,000 mg from all sources in 24 hours."
[facility] Medication administered onsite Acetaminophen 650 MG Rectal Suppository acetaminophen (TYLENOL) suppository 650 mg acetaminophen (TYLENOL) suppository 650 mg 09/14/2019 12:53:25 P M EST 650 mg Rectal active 650 mg, Re ctal, Every 4 hours PRN, fever, greater than 101.6 or headaches, Starting Yvette 09/14/19 at 1253, PACU & Post-op [facility] Medication administered onsite fentaNYL Citrate (PF) (SUBLIMAZE) injection 25 mcg [id number] -[id number] 09/14/2019 10:52:20 AM EST 25 ug Intravenous aborted 25 mcg, Intravenous, Every 5 min PRN, moderate pain (4 to 6), Starting Yvette 09/14/19 at 1052, For 10 doses, PACU (only) [facility] Medication administered onsite 5-325 mg 08/09/2019 12:00:00 AM EST tablet 15 TAKE 1 TABLET EVERY 6 HOURS NEEDED FOR PAIN MAXIMUM DAILY DOSE=4 TABLETS TAKE 1 TABLET EVERY 6 HOURS NEEDED FOR PAIN MAXIMUM DAILY DOSE=4 TABLETS SOLD: 08/10/2019 [facility] Acetaminophen 325 MG / Hydrocodone Nolvia trate 5 MG Oral Tablet HYDROcodone- acetaminophen (NORCO) 5-325 MG per tablet HYDROcodone-acetaminophen (NORCO) 5- 325 MG per tablet 08/09/2019 12:00:00 AM EST 1 {tbl} Oral active Take 1 tablet by mouth every 6 (six) hours as needed for pain Max Daily Amount: 4 tablets [facility] chlorhexidine gluconate 40 MG/ML Medicat ed Liquid Soap chlorhexidine (HIBICLENS) 4 % external liquid chlorhexidine (HIBICLENS) 4 % external liquid 08/09/20 12:00:00 AM EST 1 {application} Topical aborted Apply 1 application topically daily as needed [facility] Morphine Sulfate (PF) injection 4 mg [id number] 08/08/2019 11:51: 29 AM EST 4 mg Intravenous active 4 mg, In travenous, Every 2 hour PRN, severe pain (7-10), Starting Wed08/08/19 at 1151, For 7 days, PACU & Post-op [facility] Medication administered onsite Oxycodone Hydrochloride 5 MG Oral Tablet oxyCODONE (ROXICODONE) immediate release tablet 5 mg oxyCODONE (ROXICODONE) immediate release tablet 5 mg 08/08/2019 11:51:29 AM EST 5 mg Oral active 5 mg, Oral, Every 4 hours PRN, moderate pain (4-6), Starting Wed08/08/19 at 1151, For 7 days, PACU & Post-op [facility] Medication administered onsite Alprazolam 0.25 MG Oral Tablet ALPRAZolam (XANAX) tabl et 0.25 mg ALPRAZolam (XANAX) tablet 0.25 mg 08/08/2019 11:51:28 AM EST 0.25 mg Oral active 0.25 mg, Oral, 3 times daily PRN, anxiety, Starting Wed08/08/19 at 1151, For 7 days [facility] Medication administered onsite 5 mg 04/04/2019 12:00:00 AM EDT tablet 90 TAKE ONE TABLET BY MOUTH EVERY DAY TAKE ONE TABLET BY MOUTH EVERY DAY SOLD: 12/31/2019 [facility] 1 gram 01/20/2019 12:00:00 AM EDT tablet 90 TAKE ONE TABLET BY MOUTH THREE TIMES A DAY BEFORE MEALS TAKE ONE TABLET BY MOUTH THREE TIMES A D AY BEFORE MEALS SOLD: 12/31/2019 [facility] 40 mg 01/17/2019 12:00:00 AM EDT tablet,delayed release (DR/EC) 90 TAKE ONE TABLET BY MOUTH EVERY DAY TAKE ONE TABLET BY MOUTH EVERY DAY SOLD: 11/07/2019 [facility] 5 mg 01/13/2019 12:00:00 AM EDT tablet 30 TAKE ONE TABLET BY MOUTH EVERY DAY TAKE ONE TABLET BY MOUTH EVERY DAY SOLD: 09/23/2019 [facility] 324 mg (38 mg iron) 01/02/2019 12:00:00 AM EDT tablet 30 TAKE ONE TABLET BY MOUTH EVERY DAY TAKE ONE TABLET BY MOUTH EVERY DAY SOLD: 11/29/2019 [facility] 324 mg (38 mg iron) 01/02/2019 12:00:00 AM EDT tablet 30 TAKE ONE TABLET BY MOUTH EVERY DAY TAKE ONE TABLET BY MOUTH EVERY DAY SOLD: 09/23/2019 [facility] Acetaminophen 325 MG Oral Tablet acetaminophen (TYLENO L) 325 MG tablet acetaminophen (TYLENOL) 325 MG tablet 650 mg Oral aborted Take 650 mg by mouth daily as needed for pain [facility] Insurance Providers Payer name Policy type / Coverage type Policy ID Covered democrat ID Covered democrat's relationship to casillas Policy [place] Plan Information [facility] [id number] SP [id number] [facility] [id number] [facility] [id number] [facility] [id number] [place] (Old) Medigap Part B [id number] Self [id number] Umr (New [place]) Commercial [id number] Self [id number] [facility] [id number] [employer] (Old) Medigap Part B [id number] Self [id number] [place] (Old) Medigap Part B [id number] Self [id number] [place] (Old) Medigap Part B [id number] Self [id number] [employer] [id number] [place]ola [id number] UMR [id number] [place] [id number] UMR [facility] [id number] SP [id number] [employer] [id number] SP [id number] [place] (Old) Medigap Part B [id number] Self [id number] [employer] [id number] Leola [id number] [employer] [id number] Leola [id number] [employer] PI PI POMCO [id number] Leola [id number] [employer] [id number] Leola [id number] [employer] Commercial [id number] Self [id number] [employer] PPO O [id number] S [id number] [place] Ppo Commercial [id number] Self [id number] [place] Ppo Commercial [id number] Self [id number] [place] Ppo Commercial [id number] Self [id number] [employer] [id number] SP [id number] [place] Commercial Self POMCO [id number] SP [id number] [employer] PPO O [id number] S [id number] [facility] Com Workers Compensation Leola f [employer] Commercial Self VANIA CLAIM ADMIN WORK COMP [id number] SP [id number] OTHER [employer]EMPLOYER [id number] SP [id number] Problems, Conditions, and Diagnoses Code Display Name Description Problem Type Effective Dates Data Source(s) 65989200 Hyperlipidemia Hyperlipidemia Problem 09/20/2019 12:00: 00 AM EST [facility] ([facility]) [id number] Coronary arteriosclerosis Coronary arteriosclerosis Pr oblem 09/20/2019 12:00:00 AM EST [facility] ([facility]) N18.3 CKD (chronic kidney disease) stage 3, GF R 30-59 ml/min CKD (chronic kidney disease) stage 3, GFR 30-59 ml/min [id number] 09/14/2019 12:00:00 AM E [facility] K21.9 GERD (gastroesophageal reflux disease) G ERD (gastroesophageal reflux disease) [id number] 09/14/2019 12:00:00 AM [facility] I10 Hypertension Hypertension [id number] 09/14/2019 12:00:00 A M [facility] K27.9 Peptic ulcer Peptic ulcer [id number] 09/14/2019 12:00:00 A M [facility] I25.10 Coronary artery disease Coronary artery disease [id number] 09/14/2019 12:00:00 AM [facility] E78.5 Hyperlipidemia, acquired Hyperlipidemia, acquired 6457 200009/14/2019 12:00:00 AM [facility] I73.9 Peripheral vascular disease Peripheral vascular diseas e [id number] 09/13/2019 12:00:00 AM [facility] I73.9 Peripheral vascular disease, unspecified Peripheral vascular disease, unspecified Diagnosis 09/14/2019 06:00:00 AM [facility] I70.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 teries of extremities with rest pain, left leg Atherosclerosis of beaver arteries of ex Diagnosis 09/07/2019 12:58:17 PM [facility] Surgeries/Procedures Procedure Description Date Indications Data Source(s) DUP-SCAN LXTR ART/ARTL BPGS UNI/LMTD STUDY 02/19/2020 12:00:00 AM EDT [facility] ([facility]) DUP-SCAN LXTR ART/ARTL BPGS UNI/LMTD STUDY 09/22/2019 12:00:00 AM EST [facility] ([facility]) DUP-SCAN LXTR ART/ARTL BPGS UNI/LMTD STUDY 09/22/2019 12:00:00 AM EST [facility] ([facility]) BLOOD COUNT COMPLETE AUTOMATED CBC Timed 09/15/2019 4:27 A M EST 09/15/2019 09:27:00 AM [facility] BASIC METABOLIC PANEL CALCIUM TOTAL BASIC METABOLIC PANEL Timed 09/15/2019 4:27 AM EST 09/15/2019 09:27:00 AM [facility] BYP OTH/THN VEIN FEM-ANT TIBL PST TIBL/PRONEAL CREATI ON, BYPASS, ARTERIAL, FEMORAL TO TIBIAL 09/14/2019 7:57 AM EST Atherosclerosis of beaver arteries of extremities with rest pain, left leg 09/14/2019 12:57:00 PM EST - 09/14/2019 04:24:00 PM EST Atherosclerosis of beaver arteries of extremities with rest pain, left leg [facility] Atherosclerosis of beaver arteries of ex tremities with rest pain, left leg POCT VENOUS BLOOD GAS W CIARAN POCT VENOUS BLOOD GAS W CIARAN roche 09/14/2019 6:59 AM EST 09/14/2019 11:59:00 AM EST S [facility] Bypass Graft Other Than Vein Femoral-Ant Tib/Post Tib/Peron Art 09/14/2019 12:00:00 AM EST DONALD ([facility]) BLOOD TYPING ABO TYPE AND SCREEN Routine 09/07/2019 1:40 PM EST Atherosclerosis of beaver arteries of extremities with rest pain, left leg 09/07/2019 06:40:00 PM EST Atherosclerosis of beaver arteries of ex tremities with rest pain, left leg [facility] Atherosclerosis of beaver arteries of ex tremities with rest pain, left leg PROTHROMBIN TIME PROTIME-INR Routine 09/07/2019 1:30 PM EST Atherosclerosis of beaver arteries of extremities with rest pain, left leg 09/07/2019 06:30:00 PM EST Atherosclerosis of beaver arteries of ex tremities with rest pain, left leg [facility] Atherosclerosis of beaver arteries of ex tremities with rest pain, left leg BLOOD COUNT COMPLETE AUTOMATED CBC Routine 9 1:30 PM EST Atherosclerosis of beaver arteries of extremities with rest pain, left leg 09/07/2019 06:30:00 PM EST Atherosclerosis of beaver arteries of ex tremities with rest pain, left leg [facility] Atherosclerosis of beaver arteries of ex tremities with rest pain, left leg COMPREHENSIVE METABOLIC PANEL COMPREHENSIVE METABOLIC PANEL Emili roche 09/07/2019 1:30 PM EST Atherosclerosis of beaver arteries of extremities with rest pain, left leg 09/07/2019 06:30:00 PM EST Atherosclerosis of beaver arteries of ex tremities with rest pain, left leg [facility] Atherosclerosis of beaver arteries of ex tremities with rest pain, left leg Results ID Date Data Source [id number] 07/18/2020 09:21:00 AM EST [facility] ([facility]) Name Value Range Interpretation Code Description Data Suzette rce(s) Supporting Document(s) Ferritin [Mass/volume] in Serum or Plasma 38 ng/mL 26-388 [facility] ([facility]) ID Date Data Source [id number] 07/18/2020 09:21:00 AM EST [facility] ([facility]) Name Value Range Interpretation Code Description Data Suzette rce(s) Supporting Document(s) Iron (Fe) 70 ug/dL 65-175 [facility]) Total Iron Binding Capacity 411 ug/dL 250-450 [facility] ([facility]) Percent Saturation 17.0 % 19.7-50.0 [facility] ([facility]) ID Date Data Source [id number] 07/18/2020 09:20:00 AM EST [facility] ([facility]) Name Value Range Interpretation Code Description Data Suzette rce(s) Supporting Document(s) Cholesterol [Mass/volume] in Serum or Plasma 149 mg/dL 131-200 [facility] ([facility]) Triglyceride [Mass/volume] in Serum or Plasma 137 mg/dL 30-150 [facility] ([facility]) Cholesterol in LDL [Mass/volume] in Serum or Plasma by calcu lation 90 CALC 50-159 [facility] ([facility]) Cholesterol in HDL [Mass/volume] in Serum or Plasma 32 mg/dL 35-60 [facility] ([facility]) ID Date Data Source [id number] 07/18/2020 09:20:00 AM EST [facility] ([facility]) Name Value Range Interpretation Code Description Data Suzette rce(s) Supporting Document(s) Glucose [Mass/volume] in Serum or Plasma 108 mg/dL 74-99 [facility] ([facility]) 100-125 mg/dL PRE-DIABETES/FASTING >126 mg/dL DIABETES/FASTING Creatinine 1.9 mg/dL 0.6-1.3 [facility] Urea nitrogen [Mass/volume] in Serum or Plasma 37 mg/dL 7-18 [facility] ([facility]) Potassium [Moles/volume] in Serum or Plasma 4.5 meq/L 3.5-5.1 [facility] ([facility]) Sodium [Moles/volume] in Serum or Plasma 143 meq/L 136-145 [facility] ([facility]) Chloride [Moles/volume] in Serum or Plasma 108 meq/L 98-107 [facility] ([facility]) Calcium [Mass/volume] in Serum or Plasma 9.1 mg/dL 8.5-10.1 [facility] ([facility]) Carbon dioxide, total [Moles/volume] in Serum or Plasma 27 meq/L 21 -32 [facility] ([facility]) Total Bilirubin 0.5 mg/dL 0.2-1.0 [facility] ([facility]) Aspartate aminotransferase [Enzymatic activity/volume] in Serum or Plasma 27 U/L 15-37 [facility] ([facility] ) Alkaline phosphatase isoenzyme [Units/volume] in Serum or Pl asma 98 mg/dL 46-116 [facility] ([facility]) Albumin [Mass/volume] in Serum or Plasma 3.2 g/dL 3.4-5.0 [facility] ([facility]) A/G Ratio 0.68 CALC 1.00-1.90 [facility]) Proteinase 3 Ab [Units/volume] in Serum 7.9 g/dL 6.4-8.2 [facility] ([facility]) Alanine aminotransferase [Enzymatic activity/volume] in Seru m or Plasma 33 U/L 12-78 [facility] ([facility]) Glomerular filtration rate/1.73 sq M pre dicted among non-blacks [Volume Rate/Area] in Serum or Plasma by Creatinine-based formula (MDRD) 36 mL/min [facility] ([facility]) Glomerular filtration rate/1.73 sq M pre dicted among blacks [Volume Rate/Area] in Serum or Plasma by Creatinine-based formula (MDRD) 44 mL/min [facility] ([facility]) <content>CHRONIC KIDNEY DISEASE STAGING PER NKF</content>
<content></content>
<content>STAGE I & II GFR >= 60 NORMAL TO MILDLY DECREASED</content>
<content>STAGE III GFR 30-59 MODERATELY DECREASED</content>
<content>STAGE IV GFR 15-29 SEVERELY DECREASED</content>
<content>STAGE V GFR <15 VERY LITTLE GFR LEFT</content>
<content>ESRD GFR <15 ON LOG HAULER</content>
<content></content> ID Date Data Source [id number] 07/18/2020 09:20:00 AM EST [facility] ([facility]) Name Value Range Interpretation Code Description Data Suzette rce(s) Supporting Document(s) Magnesium 2.2 mg/dL 1.8-2.4 [facility] ([facility]) ID Date Data Source [id number] 07/18/2020 09:20:00 AM EST [facility] ([facility]) Name Value Range Interpretation Code Description Data Suzette rce(s) Supporting Document(s) Erythrocytes [#/volume] in Blood by Automated count 4.82 x10*6/UL 4.2 0-6.30 [facility] ([facility]) Leukocytes [#/volume] in Blood by Automated count 7.7 x10*3/UL 4.1-10 .9 [facility] Hemoglobin [Mass/volume] in Blood 14.0 g/dL 12.0-18.0 [facility] ([facility]) MCV 89.2 fL 80.0-97.0 [facility] ([facility]) MCH 29.1 pg 26.0-32.0 [facility] ([facility]) Hematocrit [Volume Fraction] of Blood by Automated count 43.0 % 3 7.0-51.0 [facility] Platelets [#/volume] in Blood by Automated count 259 x10*3/UL 140-440 [facility] Erythrocyte distribution width [Ratio] by Automated count 14.6 % 11.6-13.7 [facility] ([facility]) MCHC 32.6 g/dL 31.0-38.0 [facility] [facility]) Lymph % 21.9 % 10.0-58.5 [facility]) Mid % 6.2 % 1.7-9.3 [facility]) MPV 7.7 FL 7.8-11.0 [facility] [facility] Lymph # 1.7 x10*3/UL 0.6-4.1 [facility] ([facility]) Neut % 71.9 % 37.0-92.0 [facility] [facility] Neut # 5.6 x10*3/UL 2.0-7.8 [facility] ([facility]) Mid # 0.4 x10*3/UL 0.1-0.6 [facility] ([facility]) ID Date Data Source [id number] 05/01/2020 06:40:00 PM EDT [facility] ([facility]) Name Value Range Interpretation Code Description Data Suzette rce(s) Supporting Document(s) Lipoprotein lipase [Enzymatic activity/volume] in Serum or P lasma 236 U/L 73-393 [facility] ([facility]) ID Date Data Source [id number] 05/01/2020 06:40:00 PM EDT [facility] ([facility]) Name Value Range Interpretation Code Description Data Suzette rce(s) Supporting Document(s) Glucose, Fasting 93 mg/dL 70-100 [facility] ([facility]) Blood Urea Nitrogen 41 mg/dL 7-18 [facility] ([facility]) Creatinine For GFR 1.69 mg/dL 0.70-1.30 [facility] ([facility]) Sodium Level 141 meq/L 136-145 [facility] ([facility]) Glomerular Filtration Rate 43.8 [facility] ([facility]) <content>Units are mL/min/1.73 m2</content>
<content></content>
<content>Chronic Kidney Disease Staging per NKF:</content>
<content></content>
<content>Stage I & II GFR >=60 Normal to Mildly Decreased</content>
<content>Stage III GFR 30-59 Moderately Decreased</content>
<content>Stage IV GFR 15-29 Severely Decreased</content>
<content>Stage V GFR <15 Very Little GFR Left</content>
<content>ESRD GFR <15 on LOG HAULER</content>
<content></content> Chloride Level 111 meq/L 98-107 [facility] ([facility]) Carbon Dioxide Level 21 meq/L 21-32 [facility] ([facility]) Potassium Serum 4.7 meq/L 3.5-5.1 [facility] ([facility]) Anion Gap 9 meq/L 8-16 [facility] ([place] [facility]) Calcium Level 9.3 mg/dL 8.8-10.2 [facility] ([facility]) ID Date Data Source [id number] 05/01/2020 06:40:00 PM [facility]T [facility] Name Value Range Interpretation Code Description Data Suzette rce(s) Supporting Document(s) Alkaline Phosphatase 65 U/L 45-117 [facility] ([facility]) Alt/SGPT 32 U/L 12-78 [facility] [facility]) Ast/Sgot 27 U/L 7-37 [facility] ([facility]) Bilirubin,Total 0.8 mg/dL 0.2-1.0 [facility] ([facility]) Albumin 3.4 GM/DL 3.2-5.2 [facility] Total Protein 7.6 GM/DL 6.4-8.2 [facility] ([facility]) Bilirubin,Direct 0.2 mg/dL 0.0-0.2 [facility] ([facility]) Albumin/Globulin Ratio 0.8 [facility] ([facility]) ID Date Data Source [id number] 05/01/2020 06:40:00 PM EDT [facility] Name Value Range Interpretation Code Description Data Suzette rce(s) Supporting Document(s) CK-MB Value Mass 2.0 ng/mL [facility] ([facility]) CPK Creatine Phosphokinase 103 U/L 39-308 [facility] ([facility]) Troponin I [facility] <content>Troponin I Reference Interval f or Siemens [place] LOCI:</content>
<content></content>
<content>99th Percentile= 0.00-0.045 ng/ml</content>
<content></content>
<content>Risk Stratification:</content>
<content><= 0.10 ng/ml Decreased Risk for Adverse Clinical</content>
<content>Events.</content>
<content>0.10-1.50 ng/ml Increased Risk for Adverse Clinical</content>
<content>Events. Evaluation of additional</content>
<content>criterion and/or repeat testing in 2-6</content>
<content>hours is suggested to rule out myocardial</content>
<content>damage.</content>
<content>>= 1.50 ng/ml Indicative of Myocardial Injury.</content>
<content></content> MB/CK Relative Index 1.94 [facility] ([facility]) <content>DIAGNOSIS CRITERIA</content>
<content>MMB ng/ml Relative Index (RI)</content>
<content>NON-AMI < or = 5 N/A</content>
<content>GERARDO ZONE > 5 < or = 4</content>
<content>AMI > 5 > 4</content>
<content></content> ID Date Data Source [id number] 05/01/2020 06:40:00 PM EDT [facility] ([facility]) Name Value Range Interpretation Code Description Data Suzette rce(s) Supporting Document(s) White Blood Count 13.3 10 4.0-10.0 [facility] ([facility]) Red Blood Count 4.40 10 4.30-6.10 [facility] ([facility]) Hemoglobin 13.5 g/dL 13.5-17.5 [facility] ([facility]) Hematocrit 42.2 % 42.0-52.0 [facility] ([facility]) Mean Corpuscular Hemoglobin 30.7 pg 27.0-33.0 [facility] ([facility]) Mean Corpuscular Volume 95.9 fl 80.0-96.0 [facility] ([facility]) Mean Corpuscular HGB Conc 32.0 g/dL 32.0-36.5 [facility] ([facility]) Platelet Count, Automated 226 10 150-450 [facility] ([facility]) Red Cell Distribution Width 15.2 % 11.5-14.5 [facility] ([facility]) Neutrophils % 79.6 % 36.0-66.0 [facility]) Eos % 1.5 % 0.0-3.0 [facility] [facility]) [place] % 5.6 % 0.0-5.0 [facility] [facility]) Lymph % 12.0 % 24.0-44.0 [facility] [facility]) Immature Granulocyte % 0.6 % 0-3.0 [facility] ([facility]) Nucleated Red Blood Cell % 0.0 % 0-0 [facility] ([facility]) Baso % 0.7 % 0.0-1.0 [facility] Eos # 0.2 10 0.0-0.5 [facility] [facility] [place] # 0.7 10 0.0-0.8 [facility] [facility]) Lymph # 1.6 10 1.5-5.0 [facility] [facility]) Neutrophils # 10.6 10 1.5-8.5 [facility] ([facility]) Baso # 0.1 10 0.0-0.2 [facility] [facility]) ID Date Data Source [id number] 02/19/2020 08:54:00 AM EDT [facility] ([facility]) Name Value Range Interpretation Code Description Data Suzette rce(s) Supporting Document(s) Bypass Graft Ultrasound Lower Extremity Left Laboratory test result [facility] ([facility]) ID Date Data Source [id number] 01/24/2020 11:15:00 AM EDT [facility] ([facility]) Name Value Range Interpretation Code Description Data Suzette rce(s) Supporting Document(s) Blood Urea Nitrogen 43 mg/dL 7-18 [facility] ([facility]) Creatinine For GFR 1.79 mg/dL 0.70-1.30 [facility] ([facility]) Glucose, Fasting 113 mg/dL 70-100 [facility] ([facility]) Potassium Serum 4.7 meq/L 3.5-5.1 [facility] ([facility]) Glomerular Filtration Rate 41.2 [facility] ([facility]) <content>Units are mL/min/1.73 m2</content>
<content></content>
<content>Chronic Kidney Disease Staging per NKF:</content>
<content></content>
<content>Stage I & II GFR >=60 Normal to Mildly Decreased</content>
<content>Stage III GFR 30-59 Moderately Decreased</content>
<content>Stage IV GFR 15-29 Severely Decreased</content>
<content>Stage V GFR <15 Very Little GFR Left</content>
<content>ESRD GFR <15 on LOG HAULER</content>
<content></content> Sodium Level 143 meq/L 136-145 [facility] ([facility]) Chloride Level 110 meq/L 98-107 [facility] ([facility]) Anion Gap 4 meq/L 8-16 [facility] [facility] Carbon Dioxide Level 29 meq/L 21-32 [facility] ([facility]) Calcium Level 8.7 mg/dL 8.8-10.2 [facility] ([facility]) ID Date Data Source [id number] 10/13/2019 11:22:00 AM EST [facility] ([facility]) Name Value Range Interpretation Code Description Data Suzette rce(s) Supporting Document(s) Urea nitrogen [Mass/volume] in Serum or Plasma 31 mg/dL 7-18 [facility] ([facility]) Creatinine 1.7 mg/dL 0.6-1.3 [facility] ([facility]) Glucose [Mass/volume] in Serum or Plasma 105 mg/dL 74-99 [facility] ([facility]) 100-125 mg/dL PRE-DIABETES/FASTING >126 mg/dL DIABETES/FASTING Potassium [Moles/volume] in Serum or Plasma 4.5 meq/L 3.5-5.1 [facility] ([facility]) Sodium [Moles/volume] in Serum or Plasma 141 meq/L 136-145 [facility] ([facility]) Chloride [Moles/volume] in Serum or Plasma 108 meq/L 98-107 [facility] ([facility]) Calcium [Mass/volume] in Serum or Plasma 8.6 mg/dL 8.5-10.1 [facility] ([facility]) Carbon dioxide, total [Moles/volume] in Serum or Plasma 25 meq/L 21 -32 [facility] ([facility]) Alkaline phosphatase isoenzyme [Units/volume] in Serum or Pl asma 98 mg/dL 46-116 [facility] ([facility]) Total Bilirubin 0.6 mg/dL 0.2-1.0 [facility] ([facility]) Alanine aminotransferase [Enzymatic activity/volume] in Seru m or Plasma 29 U/L 12-78 [facility] ([facility]) Aspartate aminotransferase [Enzymatic activity/volume] in Serum or Plasma 29 U/L 15-37 [facility] ([facility] ) A/G Ratio 0.70 CALC 1.00-1.90 [facility]) Albumin [Mass/volume] in Serum or Plasma 3.3 g/dL 3.4-5.0 [facility] ([facility]) Proteinase 3 Ab [Units/volume] in Serum 8.0 g/dL 6.4-8.2 [facility] ([facility]) Glomerular filtration rate/1.73 sq M pre dicted among blacks [Volume Rate/Area] in Serum or Plasma by Creatinine-based formula (MDRD) 50 mL/min [facility] ([facility]) <content>CHRONIC KIDNEY DISEASE STAGING PER NKF</content>
<content></content>
<content>STAGE I & II GFR >= 60 NORMAL TO MILDLY DECREASED</content>
<content>STAGE III GFR 30-59 MODERATELY DECREASED</content>
<content>STAGE IV GFR 15-29 SEVERELY DECREASED</content>
<content>STAGE V GFR <15 VERY LITTLE GFR LEFT</content>
<content>ESRD GFR <15 ON LOG HAULER</content>
<content></content> Glomerular filtration rate/1.73 sq M pre dicted among non-blacks [Volume Rate/Area] in Serum or Plasma by Creatinine-based formula (MDRD) 41 mL/min [facility] ([facility]) ID Date Data Source [id number] 10/13/2019 11:22:00 AM EST [facility] ([facility]) Name Value Range Interpretation Code Description Data Suzette rce(s) Supporting Document(s) Leukocytes [#/volume] in Blood by Automated count 6.8 x10*3/UL 4.1-10 .9 [facility] ([facility]) Erythrocytes [#/volume] in Blood by Automated count 4.40 x10*6/UL 4.2 0-6.30 [facility] ([facility]) Hematocrit [Volume Fraction] of Blood by Automated count 40.1 % 3 7.0-51.0 [facility] Hemoglobin [Mass/volume] in Blood 13.0 g/dL 12.0-18.0 [facility] ([facility]) MCV 91.0 fL 80.0-97.0 [facility] MCHC 32.5 g/dL 31.0-38.0 [facility] ([facility]) Erythrocyte distribution width [Ratio] by Automated count 15.2 % 11.6-13.7 [facility] ([facility]) MCH 29.6 pg 26.0-32.0 [facility]) Lymph % 23.0 % 10.0-58.5 [facility] ([facility]) MPV 8.1 FL 7.8-11.0 [facility] ([facility]) Platelets [#/volume] in Blood by Automated count 213 x10*3/UL 140-440 [facility] ([facility]) Neut % 70.5 % 37.0-92.0 [facility] Mid % 6.5 % 1.7-9.3 [facility] Lymph # 1.5 x10*3/UL 0.6-4.1 [facility] ([facility]) Mid # 0.5 x10*3/UL 0.1-0.6 [facility] ([facility]) Neut # 4.8 x10*3/UL 2.0-7.8 [facility] ([facility]) ID Date Data Source [id number] 09/22/2019 09:55:00 AM EST [facility] ([facility]) Name Value Range Interpretation Code Description Data Suzette rce(s) Supporting Document(s) Bypass Graft Ultrasound Lower Extremity Right Laboratory test result [facility] ([facility]) ID Date Data Source [id number] 09/21/2019 09:00:16 AM EST [facility] NT INFORMATIONPatient MRN Name Date of Age Gend*PT [id number] Enoc Wayne 1955 64 years M IPPT Location Admission Date/Time Visit ID Attending [id number] 09/14/19 0600 --- --- EPI ID CSN Admitting Provider [id number] Braxton Pepper MD([id number]) [place] [address] OPERATIVE REPORT OPNAME: ENOC WAYNE#: [id number] #: [id number] ADMISSION DATE: 09/14/2019DOB: 1955 SEX: M PT TYPE: I SURACCT #: [id number] CARE PHYSICIAN: JESSIE GTZ OF OPERATION: 09/14/2019 PREOPERATIVE DIAGNOSES:Left leg ischemia; large seroma in the left calf, status post femoralpopliteal bypass graft, which is occluded.OPERATIVE PROCEDURES:1. Excision of a large seroma in the left popliteal space.2. Femoral to posterior tibial artery bypass graft using a 6 mm distalflow graft.3. Placement of Prevena drainage over the incisions.SURGEON:Braxton Pepper MD.PHYSICIAN/ALLERGY/IMMUNOLOGY:NED JimenezTHESIA:General endotracheal anesthesia.DESCRIPTION OF PROCEDURE:This gentleman has marked ischemia in the left leg. He has got a largeseroma in the left calf after a femoral popliteal bypass graft done in [facility]. This attempt had been made to drain this seroma previously byanother surgeon, but this has recurred. The only runoff he has is aposterior tibial artery in the left leg. As no vein is available, the planwas to do the bypass graft from his superficial femoral artery, which isopened up to the adductor hiatus and then do the bypass to the posteriortibial and excised the seroma.After prepping and draping the left leg, an adequate time-out was done.The seroma, which is 5 x 8 cm in size was then excised by making anelliptical incision going outside the sac of this and removing this,cauter izing and clipping the vessels into the sac. Once this was removed, thearea is pretty clean. There is no sign of any infection in it. I closedthis with the deeper layer trying to approximate the cavity area and thenstapled and draped this out. Exposed the posterior tibial artery justabove the ankle by making incision along the course of the artery. Skin,subcutaneous tissue, fascia was opened. The posterior tibial artery wasidentified. Multiple veins crossing it were tied. The artery is soft andopen. The superficial femoral artery in the mid thigh was exposed by amedial approach. Skin and subcutaneous tissue was opened. Sartorius wasretracted laterally. The superficial femoral artery was then dissectedafter opening the fascia. Patient was given 6000 units of heparin. I didthe distal anastomosis first. I opened the posterior tibial artery andcontrolled it proximally and distally and used the cuff of the distal flowto do the anastomosis with 6-0 Prolene suture. Hemostasis was good. Thereis good flow through the anastomosis when it was injected with heparinizedsaline. I made a separate incision in the knee area, 1 above and 1 belowthe joint, so that I could tunnel this graft posteriorly, bring it up andthen anteriorly to avoid the area where the seroma was. The graft wastunneled, brought over to the superficial femoral artery. This artery wasoccluded proximally and distally, anteriorly opened and the graft wassutured to it with a running suture of 6-0 and 5-0 Prolene. Hemostasis wasachieved. There was excellent flow in the graft. The distal anastomosiswas closed with 3- 0 nylon sutures and dorothea. Proximal anastomosis wasclosed with 2-0 Vicryl, which was used to cover the graft of the sartorius. The skin was closed with dorothea. A Prevena dressing was applied overthese incisions. Patient tolerated the procedure well. Blood loss wasabout 200 mL.SHERRIE SALGADO/KANIKA Job #: [id number] DOC #: [id number] Name Value Range Interpretation Code Description Data Suzette rce(s) Supporting Document(s) ID Date Data Source [id number] 09/19/2019 10:14:06 AM EST [facility] NT INFORMATIONPatient MRN Name Date of Age Gend*PT [id number] Carl Wayneel Katelyn 1955 64 years M IPPT Location Admission Date/Time Visit ID Attending [id number] 09/14/19 0600 --- --- EPI ID CSN Admitting Provider [id number] Braxton Pepper MD([id number]) Attestation signed by Braxton Pepper MD at 09/19/2019 10:14 AMI saw and evaluated the patient and reviewed note. I agree with the history,physical and medical decision makingSignature: LEON Sagladoate: September 19, 2019Time: 10:13 AM Surgical Discharge SummaryEnoc Kimball: [id number] date: 09/14/2019Admitting Physician: LEON Salgadoischarge date and time:Discharge Orders Placed(From admission, onward) Start Ordered 09/15/19908 Discharge patient OnceExpected Discharge Date: 09/15/19Discharge Disposition: Home or Self Care 09/15/19910Discharge Physician: Abhijit Briseno Diagnosis: Peripheral vascular diseaseSecondary Diagnoses:Active Hospital Problems Diagnosis Date Noted Peptic ulcer Hypertension GERD (gastroesophageal reflux disease) CKD (chronic kidney disease) stage 3, GFR 30-59 ml/min with hx renal cancer s/p R nephrectomy Peripheral vascular disease Coronary artery disease Hyperlipidemia, acquiredResolved Hospital ProblemsNo resolved problems to display.Discharge Medications:Your medication listSTART taking these medications Instructions Last Dose Given Morning Afternoon Evening Bedtime As NeededHYDROcodone-acetaminophen 5-325 MG per tabletCommonly known as: NORCO Take 1 tablet by mouth every 6 (six) hours as needed for pain Max Daily Amount:4 tabletsCONTINUE taking these medications Instructions Last Dose Given Morning Afternoon Evening Bedtime As NeededamLODIPine 5 MG tabletCommonly known as: NORVASC Take 5 mg by mouth dailyaspirin 81 MG EC tablet Take 1 tablet (81 mg total) by mouth dailybismuth subsalicylate 262 MG/15ML suspensionCommonly known as: PEPTO BISMOL Take 15 mL by mouth every 6 (six) hours as needed for indigestionbisoprolol 5 MG tabletCommonly known as: ZEBETA Take 5 mg by mouth dailyferrous gluconate 324 MG tabletCommonly known as: FERGON Take 324 mg by mouth daily with breakfastpantoprazole 40 MG tabletCommonly known as: PROTONIX Take 40 mg by mouth dailysucralfate 1 g tabletCommonly known as: CARAFATE Take 1 g by mouth 3 (three) times a dayWhere to Get Your MedicationsThese medications were sent to [facility] - [place], [place] - [address] [place] [address] HYDROcodone-acetaminophen 5-325 MG per tabletIndication for Admission: 64Y with PAD and LLE claudication, history of LLEseroma since 2009, elected surgical revascularization with Dr. Pepper.Hospital Course & Complications: He [facility] to [facility] 09/14/[facility] and wasadmitted inpatient to Dr. Pepper's service. He was seen on the same day in the ORand underwent LEFT femoral to tibial bypass with prosthetic graft and drainageof LEFT leg seroma. No complications.Post- operatively he had a well perfused left foot with palpable DP pulse. Threeprevena wound vacs were applied to his left leg intraoperatively. On POD#1 evaluated his left leg and was satisfied with his perfusion. Pts pain waswell controlled, he was ambulating without assistance and reported noclaudication. He was stable for discharge to home. The prevena on the LEFTmedial popliteal area at the site of the drained seroma was left in place andconverted to a home pump. The other two prevena vac were removed from theproximal thigh and distal left calf incisions and replaced with DSD.He was continued on ASA.Past Medical History:Past Medical History:Diagnosis Date Abdominal aortic aneurysm Aneurysm of artery of lower extremity CKD (chronic kidney disease) stage 3, GFR 30-59 ml/min with hx renal cancer s/p R nephrectomy Costochondritis GERD (gastroesophageal reflux disease) Hypertension Incisional hernia Osteoarthritis Peptic ulcer Peripheral vascular disease Pneumothorax 2011 Bilateral Popliteal aneurysm left Renal cancer 2012 right s/p nephrectomy; Dr. MolinaSurgical Procedures:Procedure(s):CREATION LEFT, BYPASS, ARTERIAL, FEMORAL TO TIBIAL, EXCISION OF A LARGE SEROMALEFT LEG (Left)Significant Diagnostic Studies:Routine labsTreatments:SurgeryDischarge Exam:Vitals: Temp: [97.1 F-98.2 F] 98 FHeart Rate: [59-80] 61Resp: [8-24] 18BP: (110-165)/(54-95) 153/72General appearance: Awake and alert, appears older than stated age, NADNeurologic:Cranial nerves II-XII grossly intact, movement and sensation grosslynormal in BUE and BLE.Lungs: CTA bilaterally anterior; no rhonchi, rales, wheezing.Heart: Regular rate and rhythm, no murmurs, rubs, gallops.Abdomen: Soft, non-tender, NABS througoutExtremities: RLE unremarkable, R foot warmLLE with prevenas x3, incisions without palpable hematoma. L foot warm,hyperemic, gross motor/sensation intact.Pulses:RLE +DP/PT dopplerL palpable DP, faint palpable PT. +DP/PT triphasic dopplerSkin: Skin color, texture, and turgor normal for age. No other rashes or lesionsappreciated. Items needing special attention:Follow up with Dr. Pepper 09/22/2019 at 10:00amDischarged Condition:goodDisposition: Home or Self CareSignature: JAMESON Brisenoate: September 15, 2019Time: 9:13 AM Name Value Range Interpretation Code Description Data [facility] rce(s) Supporting Document(s) ID Date Data Source [id number] 09/15/2019 05:35:15 AM EST [facility] Name Value Range Interpretation Code Description Data [facility] Supporting Document(s) SODIUM 141 mmol/L (136-145) [facility] POTASSIUM 4.6 mmol/L (3.6-5.2) [facility] CHLORIDE 108 mmol/L (100-108) [facility] CO2 27 mmol/L (22-31) [facility] ANION GAP 6 mmol/L (7-16) L [facility] UREA NITROGEN 24 mg/dL (7-24) [facility] CREATININE 1.67 mg/dL (0.80-1.30) H [facility] BUN/CREAT RATIO 14.4 RATIO (10.0-20.0) [facility] GLUCOSE 97 mg/dL (70-99) [facility] CALCIUM 8.0 mg/dL (8.4-10.2) L [facility] GFR 42 ml/min/1.73m2 (>59) L [facility] GFR ( AMER) 51 ml/min/1.73m2 (>59) L [facility] GFR INTERPRETATION [facility] --NORMAL KIDNEY FUNCTION OR MILD DISEASE - GFR >OR= 60CHRONIC KIDNEY DISEASE - GFR 15 - 59RENAL FAILURE - GFR <15 Est. GFR calculation based on the MDRDstudy equation, which assumes a steadystate for creatinine. Est. GFR should notbe used for medication dosing. ID Date Data Source [id number] 09/15/2019 05:08:24 AM EST [facility] Name Value Range Interpretation Code Description Data Suzette rce(s) Supporting Document(s) WBC 10.2 10*3/uL (4.1-11.0) [facility] RBC 3.60 10*6/uL (4.60-6.10) L [facility] HGB 10.7 g/dL (13.5-18.0) L [facility] HCT 32.2 % (41.0-53.0) L [facility] MCV 89.6 fL (80.0-95.0) [facility] MCH 29.8 pg (27.0-32.0) [facility] MCHC 33.2 g/dL (32.0-36.0) [facility] RDW 15.5 % (10.5-14.5) H [facility] PLT 219 10*3/uL (150-450) [facility] MPV 7.4 fL (7.1-10.7) [facility] ID Date Data Source [id number] 09/14/2019 08:22:43 AM EST [facility] NT INFORMATIONPatient MRN Name Date of Age Gend*PT [id number] Enoc Wayne 1955 64 years M IPPT Location Admission Date/Time Visit ID Attending Provider --- --- --- --- EPI ID CSN Admitting Pr tawana [id number] ---Arterial Line PlacementPatient location during procedure: ORStaffingPerformed by: Marquez Zavala MDArterial Line InsertionSite prep: chlorhexidineAnesthesia: noneLaterality: rightLocation: radial arteryNeedle gauge: 20 GTechnique: ultrasound guidedNumber of attempts: 1AssessmentSutured: noDressing: dressing appliedPatient tolerance: tolerated well Name Value Range Interpretation Code Description Data Suzette rce(s) Supporting Document(s) ID Date Data Source [id number] 09/14/2019 08:21:47 AM [facility] NT INFORMATIONPatient MRN Name Date of Age Gend*PT [id number] Enoc Wayne 1955 64 years M IPPT Location Admission Date/Time Visit ID Attending Provider --- --- --- --- EPI ID CSN Admitting Pr ovider [id number] ---AirwayPatient location during procedure: ORUrgency: electiveDifficult airway: noAdvanced airway equipment used: noIndications and Patient ConditionIndications for airway management: anesthesiaPreoxygenated: yesPatient position: supineIn-line stabilization: noMask ventilation: 0 - not attemptedFinal Airway/ApproachesFinal airway type: ETTNumber of attempts at final approach: 1Number of other approaches attempted: 0Final Airway DetailsFinal ETT airway: ETT - singleCuffed: yesTechnique used for successful ETT placement: direct laryngoscopy and regularstyletCricoid pressure: yesRSI: noInsertion site: oralBlade type/size: MAC 3.5ETT size: 8.0 mmMeasured from: lipsETT to lips: 22 cmPlacement verified by: chest auscultation and + [id number]: equal breath sounds bilateralGrade view: grade IIa - partial view of glottis Name Value Range Interpretation Code Description Data Suzette rce(s) Supporting Document(s) ID Date Data Source [id number] 09/14/2019 07:44:24 AM [facility] NT INFORMATIONPatient MRN Name Date of Age Gend*PT [id number] Enoc Wayne 1955 64 years M IPPT Location Admission Date/Time Visit ID [facility] 0600 --- Braxton Pepper MD([id number]) EPI ID CSN Admitting Provider [id number] Braxton Pepper MD([id number]) H&P reviewed. The patient was examined and there are no changes to the H&P.Risks and benefits of procedures explained and accepted.Braxton Pepper MD7:44 AM Name Value Range Interpretation Code Description Data Suzette rce(s) Supporting Document(s) ID Date Data Source [id number] 09/14/2019 07:03:13 AM EST [facility] Name Value Range Interpretation Code Description Data Suzette rce(s) Supporting Document(s) POC SOURCE [facility] POC TEMPERATURE [facility] POC FIO2 [facility] POC VENOUS PH (7.33-7.43) [facility] POC VENOUS PCO2 (38.0-50.0) [facility] POC VENOUS PO2 (30-50) [facility] POC VENOUS SO2 (60-85) [facility] POC VENOUS BASE EXCESS [facility] POC VENOUS HCO3 (23.0-27.0) [facility] POC VENOUS TOTAL CO2 (24-28) [facility] PER[facility] BY [facility]AFF POC HCT 36 % (41.0-53.0) L [facility] POC SODIUM (136-145) [facility] POC POTASSIUM 4.8 MMOL/L (3.6-5.2) [facility] POC IONIZED CALCIUM (4.6-5.3) [facility] POC GLU (70-99) [facility] PERFORM LAB [facility] ID Date Data Source [id number] 09/17/2019 12:40:27 AM EST [facility] SPEC EXP DATE 09/17/2019TEST ING SITE PERFORMED AT [address] [place] [address] [id number] NUMBER [id number] COMPONENT TYPE LEUKOPOOR RED CELLS (PT B)UNIT DIVISION 00STATUS OF UNIT REL FROM ALLOCTRANSFUSION STATUS OK TO TRANSFUSECROSSMATCH RESULT COMPATIBLEUNIT NUMBER [id number] COMPONENT TYPE LEUKOPOOR RED CELLSUNIT DIVISION 00STATUS OF UNIT REL FROM ALLOCTRANSFUSION STATUS OK TO TRANSFUSECROSSMATCH RESULT COMPATIBLE Name Value Range Interpretation Code Description Data Suzette rce(s) Supporting Document(s) TRANSFUSE RED CELLS [facility] TESTING SITE PERFORMED AT [address] [place] [id number] ID Date Data Source [id number] 09/07/2019 01:58:21 PM EST [facility] NT INFORMATIONPatient MRN Name Date of Age Gend*PT [id number] Enoc Wayne 1955 64 years M OPPT Location Admission Date/Time Visit ID Attending Provider --- --- --- Braxton Pepper MD([id number]) EPI ID CSN Admitting Provider [id number] ---HISTORY PHYSICALName: Enoc Wayne : 1955 Sex: male [facility] Phys[facility]: Dr. Braxton Pepper.Informant: The patient who is reliable.Chief Complaint: Left calf tightness.HISTORY OF PRESENT ILLNESS: 64 year old white male who presents with a chiefcomplaint of exertional left calf tightness. When his calf pain occurs, he alsogets a "tired" feeling to his left low back. He notes that his left foot iscool, but denies discoloration, numbness or tingling to the foot. He denies footulcers.The patient met with Dr. Pepper, options were discussed and he has elected toundergo creation, left, bypass, arterial, femoral to tibial on 09/14/2019.PAST MEDICAL HISTORY:Past Medical History:Diagnosis Date Abdominal aortic aneurysm Aneurysm of artery of lower extremity CKD (chronic kidney disease) stage 3, GFR 30-59 ml/min with hx renal cancer s/p R nephrectomy Costochondritis GERD (gastroesophageal reflux disease) Hypertension Incisional hernia Osteoarthritis Peptic ulcer Peripheral vascular disease Pneumothorax 2012 Bilateral Popliteal aneurysm left Renal cancer 2012 right s/p nephrectomy; Dr. Wilkinson SURGICAL HISTORY:Past Surgical History:Procedure Laterality Date left femoral popliteal artery bypass Left 2009 With ligation of left popliteal aneurysm ABDOMINAL AORTIC ANEURYSM REPAIR, ENDOVASCULAR N/A 08/08/2019 Procedure: REPAIR, ANEURYSM, ABDOMINAL AORTO, ENDOVASCULAR; Surgeon: MD Timmy; Laterality: N/A; [employer]. 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 Authorizing ProvideramLODIPine (NORVASC) 5 MG tablet Take 5 mg by mouth daily 01/14/17 HistoricalProvider, MDaspirin EC 81 MG EC tablet Take 1 tablet (81 mg total) by mouth daily 04/01/18Kacy Shields subsalicylate (PEPTO BISMOL) 262 MG/15ML suspension Take 15 mL by mouthevery 6 (six) hours as needed for indigestion Historical Provider, bisoprolol (ZEBETA) 5 MG tablet Take 5 mg by mouth daily 01/14/17 HistoricalProvider, MDferrous gluconate (FERGON) 324 MG tablet Take 324 mg by mouth daily withbreakfast Historical Provider, MDpantoprazole (PROTONIX) 40 MG tablet Take 40 mg by mouth daily HistoricalProvider, MDsucralfate (CARAFATE) 1 g tablet Take 1 g by mouth 3 (three) times a dayHistorical Provider, MDacetaminophen (TYLENOL) 325 MG tablet Take 650 mg by mouth daily as needed forpain 09/07/19 Historical Provider, MDchlorhexidine (HIBICLENS) 4 % external liquid Apply 1 application topicallydaily as needed 08/09/19 09/07/19 Jim Dejuan, PASocial HistorySocioeconomic History Marital status: Spouse name: Not on file Number of children: Not on file Years of education: Not on file Highest education level: Not on fileOccupational History Not on fileSocial Needs Financial resource strain: Not on file Food insecurity: Worry: Not on file Inability: Not on file Transportation needs: Medical: Not on file Non-medical: Not on fileTobacco Use Smoking status: Former Smoker Packs/day: 0.50 Years: 24.00 Pack years: 12.00 Types: Cigarettes Last attempt to quit: 2008 Years since quittin.9 Smokeless tobacco: Never UsedSubstance and Sexual Activity Alcohol use: Not Currently Drug use: No Sexual activity: Not on fileLifestyle Physical activity: Days per week: Not on file Minutes per session: Not on file Stress: Not on fileRelationships Social connections: Talks on phone: Not on file Gets together: Not on file Attends church service: Not on file Active member of club or organization: Not on file Attends meetings of clubs or organizations: Not on file Relationship status: Not on file Intimate partner violence: Fear of current or ex partner: Not on file Emotionally abused: Not on file Physically abused: Not on file Forced sexual activity: Not on fileOther Topics Concern Not on fileSocial History Narrative Not on fileFamily HistoryProblem Relation Age of Onset Stroke Father Prostate cancer Father Breast cancer Mother Malig Hyperthermia Neg HxREVIEW OF SYSTEMS:Constitution: Weight stable. Denies fatigue, fever or chills.HEENT: Denies any blurred vision, double vision, dizziness, tinnitus, dysphagiaor headaches.Respiratory: Denies any shortness of breath, cough, yellow sputum production orwheezing.Cardiovascular: Denies any chest pain, pressure or tightness. Denies nocturnaldyspnea or orthopnea.Muscle/Skeletal System: Denies any muscle ache, joint ache or weakness.Neurologic: Denies tremors or syncope.GI: Denies any nausea, vomiting, diarrhea, constipation or melena.: Denies any dysuria, hematuria or nocturia.Endocrine: Denies polyuria, polydipsia or polyphagia. Denies any heat or coldintolerance, fatigue or night sweats.Hematology: Denies any bleeding or bruising tendencies.Anesthesia complications: Denied.Steroid use: Denied.Code Status: Full code.HCP: None.PHYSICAL EXAM:General: He is a 64 year old, pleasant white male, in no acute distress at timeof examination. He appears somewhat older than his known age. Vitals on arrivalto the office were: BP 115/68 (BP Location: Right upper arm, Patient Position:Sitting) | Pulse 59 | Ht 1.753 m (5' 9") | Wt (!) 124.7 kg (275 lb) | BkZ729% | BMI 40.61 kg/m Body mass index is 40.61 kg/m .Skin is pink, warm and dry.HEENT: Head is normocephalic, atraumatic. [place] conjunctivae. Anicteric sclerae.Pupils are equal, round, reactive to light and accommodation. Extraocularmovements are intact. Ears: Without drainage or lesion. Mouth: Dentition is infair repair. He has a class III airway. Neck is supple midline without cervicaladenopathy. There is no tonsillo pharyngeal congestion. Mucous membranes aremoist. There are no oral lesions. No jugular distention. No carotid bruits. Nothyromegaly.CHEST/BREAST: A/P less than transverse.LUNGS: Clear to auscultation. No wheezes, rhonchi or crackles.HEART: Rate rhythm regular. S1, S2. No murmur, rub or gallop.ABDOMEN: Bowel sounds positive. Soft, non tender. No rebound tenderness. Nohepatosplenomegaly. Negative CVAT.GENITAL/RECTAL: Deferred.NEUROLOGICALLY: Cranial nerves II through XII are grossly intact.VASCULAR: Pulses are diminished. Left forefoot is cool b ut no discoloration ispresent. No edema, no ulcers.IMPRESSION:1. Atherosclerosis of beaver arteries of extremities with rest pain, left leg.2. Medical comorbidities as listed above.3. ALLERGIES:Patient has no known drug allergies.PLAN:1. Surgery as per Dr. Pepper.2. Anticipated length of stay as per guidelines, barring any operativecomplications or exacerbations of medical comorbidities.3. Discharge plan is to return home with the assistance of family.4. Instructions for Surgery:- You may take Tylenol (Acetaminophen) for pain as needed the morning ofsurgery. *STOP*Stop all Multivitamins and all Herbal drugs including Green Teas and Fish OilNSAID's - which include Ibuprofen (i.e. Motrin, Advil), Naproxen (i.e. Aleve)seven days prior to surgery.Instructions for patient's medicationsCurrent Outpatient MedicationsMedication Instructions amLODIPine (NORVASC) 5 MG tablet CONTINUE as prescribed aspirin EC 81 MG EC tablet CONTINUE as prescribed bismuth subsalicylate (PEPTO BISMOL) 262 MG/15ML suspension CONTINUE asprescribed bisoprolol (ZEBETA) 5 MG tablet CONTINUE as prescribed ferrous gluconate (FERGON) 324 MG tablet CONTINUE as prescribed pantoprazole (PROTONIX) 40 MG tablet CONTINUE as prescribed sucralfate (CARAFATE) 1 g tablet CONTINUE as xbbbcoaedn20/26/2019 1:58 PMSally MD Ashley Name Value Range Interpretation Code Description Data Suzette rce(s) Supporting Document(s) ID Date Data Source [id number] 09/07/2019 08:00:53 PM EST [facility] [facility] GONZALES SPEC EXP DATE 09/15/2019PATI ENT ABO/Rh O POSITIVEANTIBODY SCREEN NEGATIVETESTING SITE PERFORMED AT [address] [place] [address] BANK COMMENT BLOOD TYPE CONFIRMED. Name Value Range Interpretation Code Description Data Suzette rce(s) Supporting Document(s) TYPE AND SCREEN [facility] [place] [facility] ID Date Data Source [id number] 09/08/2019 08:17:36 AM EST [facility] Name Value Range Interpretation Code Description Data [facility] rce(s) Supporting Document(s) SPECIMEN DESCRIPTION [facility] STAPH SCREEN RESULTS (ONEGSA) [facility] COMMENT Lab [facility] GENE TO DETECT STAPH AUREUS. (2) RT-P CR WAS PERFORMED FOR THE mecA AND SCCmec GENES TO DETECT METHICILLIN RESISTANCE IN STAPH AUREUS. ID Date Data Source [id number] 09/07/2019 08:21:49 PM EST [facility] Name Value Range Interpretation Code Description Data [facility] rce(s) Supporting Document(s) PT 10.3 s (9.2-11.9) [facility] INR 1.00 [facility] SUGGESTED THERAPEUTIC RANGES USING INR F ORSTABILIZED ANTICOAGULATED PATIENTS:STANDARD DOSE THERAPY INR 2.0-3.0 DVT, PE, PREVENT DVT OR EMBOLISMHIGH DOSE THERAPY INR 2.5-3.5 PREVENT EMBOLISM FROM MECHANICAL HEART VALVE ID Date Data Source [id number] 09/07/2019 08:16:18 PM EST [facility] [facility] Name Value Range Interpretation Code Description Data Suzette rce(s) Supporting Document(s) SODIUM 144 mmol/L (136-145) [facility] POTASSIUM 4.9 mmol/L (3.6-5.2) [facility] CHLORIDE 111 mmol/L (100-108) H [facility] CO2 25 mmol/L (22-31) [facility] ANION GAP 8 mmol/L (7-16) [facility] UREA NITROGEN 35 mg/dL (7-24) [facility] CREATININE 1.65 mg/dL (0.80-1.30) [facility] BUN/CREAT RATIO 21.2 RATIO (10.0-20.0) H [facility] GLUCOSE 84 mg/dL (70-99) [facility] CALCIUM 8.8 mg/dL (8.4-10.2) [facility] TOTAL PROTEIN 7.4 g/dL (6.4-8.2) [facility] ALBUMIN 2.8 g/dL (3.2-4.5) L [facility] GLOBULIN 4.6 g/dL (2.7-4.3) H [facility] ALB/GLOB RATIO 0.6 RATIO [facility] ALKALINE PHOSPHATASE 79 U/L (45-117) [facility] BILIRUBIN,TOTAL 0.6 mg/dL (0.0-1.0) [facility] AST (SGOT) 23 U/L (11-39) [facility] ALT (SGPT) 23 U/L (12-78) [facility] GFR 42 ml/min/1.73m2 (>59) L [facility] GFR ( AMER) 51 ml/min/1.73m2 (>59) L [facility] GFR INTERPRETATION [facility] --NORMAL KIDNEY FUNCTION OR MILD DISEASE - GFR >OR= 60CHRONIC KIDNEY DISEASE - GFR 15 - 59RENAL FAILURE - GFR <15 Est. GFR calculation based on the MDRDstudy equation, which assumes a steadystate for creatinine. Est. GFR should notbe used for medication dosing. ID Date Data Source [id number] 09/07/2019 07:55:54 PM EST [facility] Name Value Range Interpretation Code Description Data Suzette rce(s) Supporting Document(s) WBC 9.0 10*3/uL (4.1-11.0) [facility] [place] [facility] [place] RBC 3.98 10*6/uL (4.60-6.10) L [facility] HGB 11.9 g/dL (13.5-18.0) L [facility] HCT 35.9 % (41.0-53.0) L [facility] MCV 90.2 fL (80.0-95.0) [facility] MCH 29.8 pg (27.0-32.0) [facility] MCHC 33.0 g/dL (32.0-36.0) [facility] RDW 15.7 % (10.5-14.5) H [facility] PLT 270 10*3/uL (150-450) [facility] MPV 7.8 fL (7.1-10.7) [facility] ID Date Data Source [id number] 08/24/2019 09:47:43 AM EST [facility] INFORMATIONPatient MRN Name Date of Age Gend*PT [id number] Enoc Wayne 1955 64 years M IPPT Location Admission Date/Time Visit ID Attending [id number] 08/08/19604 --- --- EPI ID CSN Admitting Pr ovider [id number] Braxton Pepper MD([id number]) [place] [address] OPERATIVE REPORT OPNAME: ENOC WAYNE#: [id number] #: [id number] ADMISSION DATE: 08/08/2019DOB: 1955 SEX: M PT TYPE: I SURACCT #: [id number] CARE PHYSICIAN: JESSIE GTZ OF OPERATION: 08/08/2019 PREOPERATIVE DIAGNOSES:1. Abdominal aortic aneurysm.2. Left internal iliac artery large aneurysm.3. Obesity.OPERATIVE PROCEDURE:1. Repair of abdominal aortic aneurysm with an Endurant graft.2. Plugging of the left internal iliac artery.SURGEONS:Dr. Braxton Fenton SURGEON:Dr. Stewart MederosanASSISTANT:KAYLA JimenezNESTHESIA:General endotracheal.DESCRIPTION OF PROCEDURE:This is an obese gentleman with an aneurysm in the aorta as well as a largeinternal iliac artery aneurysm. He is obese. Both groins and abdomen wereprepped and draped and adequate timeout was done. The femoral arterieswere exposed through a transverse incision just at the level of theinguinal ligament. Skin, subcutaneous tissue, fat was dissected out. Thecommon femoral arteries were isolated proximally and distally. The rightfemoral artery was cannulated. The angiogram was done visualizing theorifice of the left internal iliac artery and the aneurysm in that. A 20mm Amplatz plug was placed in the left hypogas tric artery successfully.After this, the patient was heparinized with 8000 units of heparin. Botharteries were cannulated and over catheter stiff wires were passed fromboth sides. A 32 x 14 x 103 graft was then passed through the right groin,placed just near the orifice of the renal artery. An angiogram was donedefining the renal artery. There was only one renal artery in him and onekidney on the left side. This graft was then opened here, checked againwith angio to make sure the positioning is just below the renal artery, itslimbs were brought down. In the left, extension of 16 x 16 x 156 graft wasdone and in the left side this was extended into the left external iliacartery. On the right, 16 x 16 graft was placed and a flare extensionwas placed. Angiogram was then performed placing thecatheter just above the renal artery. It showed the renal artery wasopened. There was no endoleaks. Left hypogastric artery was notvisualized. The aneurysm was visible also. Cannulas were removed fromboth groin arteries. In the right side, a balloon occlusion catheter wasplaced just above the common femoral artery because there was not much roomto place a clamp. These arteries were closed with 5-0 Prolene interruptedsutures. On the right side, pledgeted suture was required. Flow wasexcellent through the vessels. Deeper layers were closed with 2-0 Vicrylin multiple layers. IrriSept was used to irrigate the wound. Marcaine wasinfiltrated in the skin and the skin was closed with subcuticular suture.Dermabond was applied. Blood loss was about 250 mL.SHERRIE SALGADO/KANIKA Job #: [id number] DOC #: [id number]: STEWART GREEN MD Name Value Range Interpretation Code Description Data Suzette rce(s) Supporting Document(s) ID Date Data Source [id number] 08/12/2019 07:26:05 AM EST [facility] NT INFORMATIONPatient MRN Name Date of Age Gend*PT [id number] Enoc Wayne 1955 64 years M IPPT Location Admission Date/Time Visit ID Attending [id number] 08/08/19 0605 --- --- EPI ID CSN Admitting Pr ovider [id number] Braxton Pepper MD([id number]) Attestation signed by Stewart Green MD at 08/12/2019 7:26 AMI agree with the history, physical and medical decision makingSignature: Stewart Green MDDate: August 12, 2019Time: 7:25 AM Surgical Discharge SummaryEnoc AcevedoPadmaN: [id number] date: 08/08/2019Admitting Physician: LEON Salgadoischarge date and time:Discharge Orders Placed(From admission, onward) Start Ordered 08/09/19 1019 Discharge patient Once, Status: CanceledComments: to transport, she will wait in front [place].Expected Discharge Date: 08/09/19Expected Discharge Time: 12:00Discharge Disposition: Home or Self Care 08/09/19 1030Discharge Physician: Abhijit Briseno Diagnosis: AAA (abdominal aortic aneurysm)Secondary Diagnoses:Active Hospital Problems Nuvia gnosis Date Noted AAA (abdominal aortic aneurysm) 07/23/2019 Postoperative seroma of musculoskeletal structure after non- musculoskeletalprocedure 01/30/2015 Hypertension, essential Hyperlipidemia, acquired Peripheral vascular diseaseResolved Hospital ProblemsNo resolved problems to display.Discharge Medications:Your medication listSTART taking these medications Instructions Last Dose Given Morning Afternoon Evening Bedtime As Neededchlorhexidine 4 % external liquidCommonly known as: HIBICLENS Apply 1 application topically daily as neededAs needed as directed.HYDROcodone- acetaminophen 5-325 MG per tabletCommonly known as: NORCO Take 1 tablet by mouth every 6 (six) hours as needed for pain Max Daily Amount:4 tabletsAs needed as directed.CONTINUE taking these medications Instructions Last Dose Given Morning Afternoon Evening Bedtime As Neededacetaminophen 325 MG tabletCommonly known as: TYLENOL Take 650 mg by mouth daily as needed for painAs needed as directed.amLODIPine 5 MG tabletCommonly known as: NORVASC Take 5 mg by mouth daily08/10/19aspirin 81 MG EC tablet Take 1 tablet (81 mg total) by mouth daily08/10/19bismuth subsalicylate 262 MG/15ML suspensionCommonly known as: PEPTO BISMOL Take 15 mL by mouth every 6 (six) hours as needed for indigestionAs needed as directed.bisoprolol 5 MG tabletCommonly known as: ZEBETA Take 5 mg by mouth daily08/10/19ferrous gluconate 324 MG tabletCommonly known as: FERGON Take 324 mg by mouth daily with /28/19pantoprazole 40 MG tabletCommonly known as: PROTONIX Take 40 mg by mouth daily08/10/19sucralfate 1 g tabletCommonly known as: CARAFATE Take 1 g by mouth 3 (three) times a day08/09/19Where to Get Your MedicationsThese medications were sent to [facility] - [place], [place] - [address] [place] [address] HYDROcodone-acetaminophen 5-325 MG per tabletInformation about where to get these medications is not yet availableAsk your nurse or doctor about these medications chlorhexidine 4 % external liquidIndication for Admission: 64 years old male with history of PAD with recentlydiagnosed AAA during workup for leg claudication, elected surgical repair of theAAA prior to LLE revascularization.Hospital Course & Complications: He was admitted inpatient to Dr. Pepper'sservice on 08/08/2019 and seen on the same day in the OR with Dr. Bellamy an andunderwent endovascular repair of AAA with plugging of left IA. No reportedcomplications. He had a loose tooth noted pre-operatively, anesthesia requestedDentistry consult and his lower front tooth #24 was eventually extracted.He recovered well from this operation and remained stable for discharge to homeon POD #1 08/09/2019. He was continued on ASA 81mg. He had some elevated Cr 1.94up from 1.42, but he had Cr as high as 2.14 in 03/2018. He was encourage tohydrate well and he was not on any nephrotoxic medications.He has a follow up appointment with Dr. Pepper on 08/16/2019 at 0915. [facility] will [facility]about [facility] attend a ceremony for his [id number]. He isanticipating a LLE bypass operation and drainage of a LEFT medial calf seroma jose scheduled sometime in September 2018.Past Medical History:Past Medical History:Diagnosis Date Abdominal aortic aneurysm Aneurysm of artery of lower extremity CKD (chronic kidney disease) stage 3, GFR 30-59 ml/min with hx renal cancer s/p R nephrectomy Costochondritis GERD (gastroesophageal reflux disease) Hypertension Incisional hernia Osteoarthritis Peptic ulcer Peripheral vascular disease Pneumothorax 2011 Bilateral Popliteal aneurysm left Renal cancer 2012 right s/p nephrectomy; Dr. MolinaSurgical Procedures:Procedure(s) with comments:REPAIR, ANEURYSM, ABDOMINAL AORTO, ENDOVASCULAR (N/A) - [employer]. DR WILDER MOON, 8AM START REQUESTEDSignificant Diagnostic Studies: Routine labsTreatments: EVARDischarge Exam:Vitals:General appearance: Awake and alert, appears stated age, NAD sitting in chairNeurologic:Cranial nerves II-XII grossly intact, movement and sensation grosslynormal in BUE and BLE.Lungs: CTA bilaterally anterior; no rhonchi, rales, wheezing.Heart: Regular rate and rhythm, no murmurs, rubs, gallops.Abdomen: Soft, morbidly obese, non-tender, NABS througoutExtremities: Bilateral groin incisions with dressings slightly soilded, Ireplaced, incisions soft without palpable hematoma, minimal TPP. Ecchymoticaround incisions.RLE with well healed incisions, foot warm without ulcerations or sores.L medial calf with large palpable seroma along prioximal incision line near cruxof knee pt says is unchanged, well healed medial calf incisions. L foot warm,thickened dry skin, no sores/ulcerations.Pulses:R +DP/PT/AT doppler biphasicL +DP/AT doppler monophasicSkin: Skin color, texture, and turgor normal for age. No other rashes or lesionsappreciated.Items needing special attention:Follow up and future bypass, as aboveDischarged Condition:goodDisposition: Home or Self CareSignature: JAMESON Brisenoate: August 11, 2019Time: 7:08 PM Name Value Range Interpretation Code Description Data Suzette rce(s) Supporting Document(s) Procedure Social History Code Duration Value Status Description Data Source(s ) Smoking 06/26/2020 12:00:00 AM EDT Patient is a former smoker completed Patient is a former smoker [facility] ([facility]) Alcohol intake 09/15/2019 12:00:00 AM EST Not Currently completed [facility] Cigarette pack-years 09/15/2019 12:00:00 AM EST UNK completed [facility] Cigarettes smoked current (pack per day) - Reported 09/15/19 12:00:00 AM EST UNK completed [facility] Smoking 09/15/2019 12:00:00 AM EST Former smoker completed Former smoker [facility] Alcohol intake 09/07/2019 12:00:00 AM EST Not Currently completed [facility] Cigarette pack-years 09/07/2019 12:00:00 AM EST UNK completed [facility] Cigarettes smoked current (pack per day) - Reported 09/07/20 12:00:00 AM EST UNK completed [facility] Smoking 09/07/2019 12:00:00 AM EST Former smoker completed Former smoker [facility] Vital Signs ID Date Data Source UNK Name Value Range Interpretation Code Description Data Source(s) Body mass index (BMI) [Ratio] 41.0 kg/m2 41.0 k g/m2 [facility] ([facility]) Oxygen saturation in Arterial blood by Pulse oximetry 96 % 96 % [facility] ([facility]) Body weight 282.00 [lb_av] 282.00 [lb_av] [facility] T ([facility]) Body height 69.5 [in_i] 69.5 [in_i] [facility] ([facility]) 5'9.50" Heart rate 71 /min 71 /min [facility] ([facility]) Diastolic blood pressure 78 mm[Hg] 78 mm[Hg] [facility] ([facility]) Systolic blood pressure 122 mm[Hg] 122 mm[Hg] [facility] ([facility]) Body mass index (BMI) [Ratio] 41.3 kg/m2 41.3 k g/m2 [facility] ([facility]) Body weight 127.008 kg 127.008 kg [facility] ([facility] Body weight 280.00 [lb_av] 280.00 [lb_av] [facility] ([facility]) Body height 69 [in_i] 69 [in_i] [facility] 5'9" Heart rate 80 /min 80 /min [facility] Diastolic blood pressure 84 mm[Hg] 84 mm[Hg] [facility] ([facility]) Systolic blood pressure 150 mm[Hg] 150 mm[Hg] [facility] ([facility]) Diastolic blood pressure 70 mm[Hg] 70 mm[Hg] [facility] ([facility]) Systolic blood pressure 140 mm[Hg] 140 mm[Hg] [facility] ([facility]) Body mass index (BMI) [Ratio] 41.3 kg/m2 41.3 k g/m2 [facility] ([facility]) Body weight 127.008 kg 127.008 kg [facility] Body weight 280.00 [lb_av] 280.00 [lb_av] [facility] ([facility]) Body height 69 [in_i] 69 [in_i] [facility] 5'9" Diastolic blood pressure 90 mm[Hg] 90 mm[Hg] [facility] ([facility]) Systolic blood pressure 160 mm[Hg] 160 mm[Hg] [facility] ([facility]) Diastolic blood pressure 80 mm[Hg] 80 mm[Hg] [facility] ([facility]) Systolic blood pressure 140 mm[Hg] 140 mm[Hg] [facility] ([facility]) Body mass index (BMI) [Ratio] 41.2 kg/m2 41.2 k g/m2 [facility] ([facility]) Oxygen saturation in Arterial blood by Pulse oximetry 98 % 98 % [facility] ([facility]) RM Air Body weight 283.00 [lb_av] 283.00 [lb_av] [facility] T ([facility]) Body height 69.5 [in_i] 69.5 [in_i] [facility] ([facility]) 5'9.50" Heart rate 82 /min 82 /min [facility] ([facility]) Diastolic blood pressure 80 mm[Hg] 80 mm[Hg] [facility] ([facility]) Systolic blood pressure 124 mm[Hg] 124 mm[Hg] M [facility] ([facility]) Body mass index (BMI) [Ratio] 40.6 kg/m2 40.6 k g/m2 [facility] ([facility]) Body weight 124.740 kg 124.740 kg [facility] Body weight 275.00 [lb_av] 275.00 [lb_av] [facility] ([facility]) Body height 69 [in_i] 69 [in_i] [facility] 5'9" Heart rate 70 /min 70 /min [facility] ([facility] Diastolic blood pressure 80 mm[Hg] 80 mm[Hg] [facility] ([facility]) Systolic blood pressure 160 mm[Hg] 160 mm[Hg] [facility] ([facility]) Heart rate 63 /min 63 /min [facility] Diastolic blood pressure 81 mm[Hg] 81 mm[Hg] [facility] Systolic blood pressure 161 mm[Hg] 161 mm[Hg] [facility] Oxygen saturation in Arterial blood by Pulse oximetry 99 % 99 % [facility] Respiratory rate 18 /min 18 /min [facility] Body temperature 36.67 Maricel 36.67 Maricel [facility] Body mass index (BMI) [Ratio] 40.61 kg/m2 40.61 kg/m2 [facility] Body weight 124.739 kg 124.739 kg [facility] Body height 175.3 cm 175.3 cm [facility] Oxygen saturation in Arterial blood by Pulse oximetry 97 % 97 % [facility] Body mass index (BMI) [Ratio] 40.61 kg/m2 40.61 kg/m2 [facility] Body weight 124.739 kg 124.739 kg [facility] Body height 175.3 cm 175.3 cm [facility] Heart rate 59 /min 59 /min [facility] Diastolic blood pressure 68 mm[Hg] 68 mm[Hg] [facility] Systolic blood pressure 115 mm[Hg] 115 mm[Hg] [facility] Patient Treatment Plan of Care Planned Activity Planned Date Details Description Data Source (s) Acetaminophen 325 MG / Hydrocodone Bitartrate 5 MG Ora l Tablet 09/15/2019 12:00:00 AM [facility] chlorhexidine gluconate 40 MG/ML Medicated Liquid Soap 08/09/2019 12:00:00 AM [facility] Acetaminophen 325 MG / Hydrocodone Bitartrate 5 MG Ora l Tablet 08/09/2019 12:00:00 AM [facility] Acetaminophen 325 MG Oral Tablet [facility]
--- OUTSIDE RECORDS SUMMARY | 2020-10-11 00:47 | CCD | Continuity of Care Document ---
Author Author [facility] Organization Unknown Address [address] [address] Phone [phone] Care Team Providers Care Legal Instructor Name Role Phone Guillermo Castelan MD AUTM [phone] Werner Molina MD AUTM [phone] Rashmi Zhu DO AUTM Unavailable Braxton Pepper MD AUTM [phone] Problems Active Problems Provider Date Acute peptic [...] 1 by mouth every day 90tabs Rashmi DO Duc 03/19/2015 Lasix 20mg Tablets take one tablet by mouth every other day x 1 month Unknown Immunizations CPT Code Status Date Vaccine Lot # [id number] Refused 07/19/2017 Influenza Vaccin e Quadrivalent Preser/Antibiotic [...] H/L Range Note Laboratory test finding 07/18/2020 [facility] [address] [id number] [phone] Ferritin <pending> Laboratory test finding 07/18/2020 [facility] rupesh wolff Group Director Experience: [place] [address] [phone] Magnesium, Serum <pending> CBC With Differential 05/01/[address] [address] [phone] White Blood Count 13.3 10 High 4.0-10.0 [...] 36.0-66.0 Lymph % 12.0 % Low 24.0-44.0 [place] % 5.6 % High 0.0-5.0 Eos % 1.5 % Normal 0.0-3.0 Baso % 0.7 % Normal 0.0-1.0 Immature Granulocyte % 0.6 % Normal 0-3.0 Nucleated Red Blood Cell % 0.0 % Normal 0-0 Neutrophils # 10.6 10 High 1.5-8.5 Lymph # 1.6 10 Normal 1.5-5.0 [place] # 0.7 10 Normal 0.0-0.8 Eos # 0.2 10 Normal 0.0-0.5 Baso # 0.1 10 Normal 0.0-0.2 Cardiac Marker Panel 05/01/2020 [facility] enter [address] [place] [address] [phone] CPK Creatine Phosphokinase 103 U/L Normal 39-30 8 CK-MB Value Mass 2.0 NG/ML Normal <3.6 MB/CK Relative Index 1.94 Normal < Or =4 1 Troponin I < 0.02 NG/ML Normal < 0.10 2 Liver Profile 05/01/2020 [facility] nter [address] [place] [address] [phone] Ast/Sgot 27 U/L Normal 7-37 Alt/SGPT 32 U/L Normal 12-78 Alkaline Phosphatase 65 U/L Normal 45-117 Bilirubin,Total 0.8 mg/dL Normal 0.2-1.0 Bilirubin,Direct 0.2 mg/dL Normal 0.0-0.2 Total Protein 7.6 GM/DL Normal 6.4-8.2 Albumin 3.4 GM/DL Normal 3.2-5.2 Albumin/Globulin Ratio 0.8 Normal Basic Metabolic Profile 05/01/2020 [facility] [address] [place] [address] [phone] Glucose, Fasting 93 mg/dL Normal 70-100 Blood Urea Nitrogen 41 mg/dL High 7-18 Creatinine For GFR 1.69 mg/dL High 0.70-1.30 Glomerular Filtration Rate 43.8 Low >49 3 Sodium Level 141 mEq/L Normal 136-145 Potassium Serum 4.7 mEq/L Normal 3.5-5.1 Chloride Level 111 mEq/L High 98-107 Carbon Dioxide Level 21 mEq/L Normal 21-32 Anion Gap 9 mEq/L Normal 8-16 Calcium Level 9.3 mg/dL Normal 8.8-10.2 Laboratory test finding 05/01/2020 [facility] [address], [place] [id number] [phone] Lipase 236 U/L Normal 73-393 Basic Metabolic Profile 01/24/2020 [facility] [address], [place] [id number] [phone] Glucose, Fasting 113 mg/dL High 70-100 Blood Urea Nitrogen 43 mg/dL High 7-18 Creatinine For GFR 1.79 mg/dL High 0.70-1.30 Glomerular Filtration Rate 41.2 Low >49 4 Sodium Level 143 mEq/L Normal 136-145 Potassium Serum 4.7 mEq/L Normal 3.5-5.1 Chloride Level 110 mEq/L High 98-107 Carbon Dioxide Level 29 mEq/L Normal 21-32 Anion Gap 4 mEq/L Low 8-16 Calcium Level 8.7 mg/dL Low 8.8-10.2 1 DIAGNOSIS CRITERIA MMB ng/ml Relative Index (RI) NON-AMI < or = 5 N/A GERARDO ZONE > 5 < or = 4 AMI > 5 > 4 2 Troponin I Reference Interva l for Care2Manage LOCI: 99th Percentile= 0.00-0.045 ng/ml Risk Stratification: <= 0.10 ng/ml Decreased Risk for Adverse Clinical Events. 0.10-1.50 ng/ml Increased Risk for Adv erse Clinical Events. Evaluation of additional criterion and/or repeat testing in 2-6 hours is suggested to rule out myocardial damage. >= 1.50 ng/ml Indicative of Myocardial Injury. 3 Units are mL/min/1.73 m2 Chronic Kidney Disease Staging per NKF: Stage I & II GFR >=60 Normal to Mildly Decreased Stage III GFR 30-59 Moderately Decreased Stage IV GFR 15-29 Severely Decreased Stage V GFR <15 Very Little GFR Left ESRD GFR <15 on [employer] SUPERVISOR 4 Units are mL/min/1.73 m2 Chronic Kidney Disease Staging per NKF: Stage I & II GFR >=60 Normal to Mildly Decreased Stage III GFR 30-59 Moderately Decreased Stage IV GFR 15-29 Severely Decreased Stage V GFR <15 Very Little GFR Left ESRD GFR <15 on [employer]OW[employer] SUPERVISOR Procedures Description No Information Available Medical Devices Description No Information Available Encounters Description No Information Available Assessments Description No Information Available Plan of Treatment 10/13/2019 - Rashmi Zhu DO* I71.4 Abdominal aortic aneurysm, without rupture * I73.9 Peripheral vascular disease, unspecified * I12.9 Hypertensive chronic kidney disease with stage 1 through stage 4 chronic kidney disease, or unspecified chronic kidney disease * N18.3 Chronic kidney disease, stage 3 (moderate) * Z90.5 Acquired absence of kidney * Z85.528 Personal history of other malignant neoplasm of kidney * D50.9 Iron deficiency anemia, unspecified * I72.4 Aneurysm of artery of lower extremity * E78.5 Hyperlipidemia, unspecified * All * Comments:* Patient will follow up in 2 months for follow up. Labs have been ordered on him today to monitor his renal function. Also check CBC on him to monitor his H&H with recent surgeries as well. Functional Status Description No Information Available Mental Status Description No Information Available Referrals Description No Information Available
[2020-10-11 01:17] LABS: BASO % 0.2 % (0.0-1.0); EOS % 0.1 % (0.0-3.0); HEMATOCRIT 51.5 % (42.0-52.0); LYMPH # 0.3 10^3/uL (1.5-5.0); LYMPH % 1.7 % (24.0-44.0); MEAN CORPUSCULAR HEMOGLOBIN 29.5 pg (27.0-33.0); MEAN CORPUSCULAR HGB CONC 31.1 g/dl (32.0-36.5); MONO # 1.1 10^3/uL (0.0-0.8); MONO % 5.6 % (0.0-5.0); NEUTROPHILS # 17.9 10^3/uL (1.5-8.5); NEUTROPHILS % 91.7 % (36.0-66.0); PLATELET COUNT, AUTOMATED 179 10^3/uL (150-450); RED BLOOD COUNT 5.42 10^6/uL (4.30-6.10); WHITE BLOOD COUNT 19.5 10^3/uL (4.0-10.0)
[2020-10-11 01:29] LABS: INR 1.05; PROTHROMBIN TIME 13.9 SECONDS (12.5-14.3)
[2020-10-11] MEDS ORDERED: GI COCKTAIL 50ML BTL(HYOSCYAMINE/MAALOX/LIDOCAINE VISCOUS)(1:3:1) PO ONE (01:30)
[2020-10-11 01:48] LABS: ALBUMIN 3.1 GM/DL (3.2-5.2); ALT/SGPT 389 U/L (12-78); BILIRUBIN,TOTAL 5.6 MG/DL (0.2-1.0); BLOOD UREA NITROGEN 32 MG/DL (7-18); CALCIUM LEVEL 8.6 MG/DL (8.8-10.2); CARBON DIOXIDE LEVEL 24 MEQ/L (21-32); CHLORIDE LEVEL 108 MEQ/L (98-107); CK-MB VALUE MASS 2.2 NG/ML (<3.6); CPK CREATINE PHOSPHOKINASE 140 U/L (39-308); CREATININE FOR GFR 2.27 MG/DL (0.70-1.30); GLOMERULAR FILTRATION RATE 31.2 (>49); GLUCOSE, FASTING 116 MG/DL (70-100); LIPASE 191 U/L (73-393); MB/CK RELATIVE INDEX 1.57 (< OR =4); POTASSIUM SERUM 4.2 MEQ/L (3.5-5.1); SODIUM LEVEL 141 MEQ/L (136-145); TOTAL PROTEIN 7.6 GM/DL (6.4-8.2); TROPONIN I < 0.02 NG/ML (< 0.10)
[2020-10-11] MEDS ORDERED: NS 1,000 ML IV ONE (02:00)
[2020-10-11] MEDS ORDERED: dexameTHASONE 20MG/5ML VIAL (J1100 PER 1MG) As Ordered ONE (02:28)
[2020-10-11] MEDS ORDERED: dexameTHASONE 20MG/5ML VIAL (J1100 PER 1MG) IV ONE (02:30)
[2020-10-11] MEDS ORDERED: AMLO1TAB24 PO (02:31)
[2020-10-11] MEDS ORDERED: FERR32TA PO (02:31)
[2020-10-11] MEDS ORDERED: SUCR1TAB56 PO (02:31)
[2020-10-11] MEDS ORDERED: PANT-23 PO (02:31)
[2020-10-11] MEDS ORDERED: PATIENT COMMENT (02:32)
[2020-10-11] MEDS ORDERED: ACETAMINOPHEN TAB 650MG DOSE (2X325MG) PO ONE (02:45)
[2020-10-11 02:46] LABS: NT-PRO BNP 2159 PG/ML (<125)
[2020-10-11] MEDS: COMBIVENT RESPIMAT 100-20MCG INHALER 4GM INH SCH ×3 (02:47→04:00)
--- NOTE | 2020-10-11 03:16 | REPVR ---
PROCEDURE INFORMATION: Exam: XR Chest, 1 View Exam date and time: 10/11/20 (1:21am) Age: 65 years old Clinical indication: Chest pain TECHNIQUE: Imaging protocol: Portable CXR Views: 1 view COMPARISON: Portable CXR of 05/01/20 FINDINGS: Lungs: Unremarkable. No consolidation. Pleural spaces: Unremarkable. No pleural effusions. No pneumothorax. Heart/Mediastinum: Difficult to assess heart size on this portable film. Bones/joints: Unremarkable. IMPRESSION: No acute findings. Clear lung whitfield. Electronically signed by: Leni Salas On 10/11/2020 03:15:47 AM
--- NOTE | 2020-10-11 03:20 | REPVR ---
PROCEDURE INFORMATION: Exam: CT Chest without Contrast; Diagnostic Exam date and time: 10/11/20 (2:14am) Age: 65 years old Clinical indication: Chest and abdominal pain. SOB. KAMALJIT. Peptic ulcer disease. TECHNIQUE: Imaging protocol: Diagnostic computed tomography of the chest without contrast. Radiation optimization: All CT scans at this facility use at least one of these dose optimization techniques: automated exposure control; mA and/or kV adjustment per patient size (includes targeted exams where dose is matched to clinical indication); or iterative reconstruction. COMPARISON: CT CHEST of 11/23/16 FINDINGS: Lungs: Unremarkable. No consolidation. No masses. Pleural spaces: Unremarkable. No pneumothorax. No pleural effusions. Heart: Cardiomegaly. No pericardial effusion. Aorta: Unremarkable. No aortic aneurysm. Lymph nodes: Unremarkable. No enlarged lymph nodes. Bones/joints: No acute fracture. Multilevel degenerative thoracic spine changes. Soft tissues: Unremarkable. IMPRESSION: No acute findings. Cardiomegaly. Electronically signed by: Leni Salas On 10/11/2020 03:20:12 AM
--- NOTE | 2020-10-11 03:39 | REPVR ---
PROCEDURE INFORMATION: Exam: CT Abdomen and Pelvis without Contrast Exam date and time: 10/11/20 (2:16am) Age: 65 years old Clinical indication: Chest and abdominal pain. SOB. History of peptic ulcer disease and KAMALJIT. S/P right nephrectomy. TECHNIQUE: Imaging protocol: Computed tomography of the abdomen and pelvis without contrast. Radiation optimization: All CT scans at this facility use at least one of these dose optimization techniques: automated exposure control; mA and/or kV adjustment per patient size (includes targeted exams where dose is matched to clinical indication); or iterative reconstruction. COMPARISON: CT ABDOMEN PELVIS of 01/24/20 CT ABDOMEN PELVIS of 12/10/18 FINDINGS: Liver: Normal. No solid mass. Gallbladder and bile ducts: Distended gallbladder, containing multiple calcified stones (also seen in January 2020). No ductal dilatation. Pancreas: Normal. No ductal dilatation. Spleen: Normal. No splenomegaly. Adrenal glands: Normal. No mass. Kidneys and ureters: S/P right nephrectomy. Left kidney shows no hydronephrosis. Solitary left kidney, with stable peripheral soft tissue density mass (2.5 cm size), posteriorly (perhaps a complex or proteinaceous cyst, eg) (unchanged from January 2020 and November 2018). Stomach and bowel: Distended stomach, filled with food debris. No bowel obstruction. No mucosal thickening. Appendix: No evidence of appendicitis. Intraperitoneal space: Unremarkable. No free air. No significant fluid collection. Vasculature: Aorto bi-iliac stent again seen. 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 No acute vascular complication noted. Lymph nodes: Unremarkable. No enlarged lymph nodes. Urinary bladder: Unremarkable as visualized. Reproductive: Unremarkable as visualized. Other findings: A few small surgical clips again seen at the right groin area. Bones/joints: No acute fracture. Advanced multilevel degenerative thoracolumbar spine changes (similar appearance 8 months ago). Soft tissues: Unremarkable. IMPRESSION: No acute pathology. S/P right nephrectomy. Stable appearance of the left kidney, with no hydronephrosis. Distended gallbladder, containing multiple calcified stones (also seen previously). Aorto bi-iliac in place (stable appearance). Electronically signed by: Leni Salas On 10/11/2020 03:39:05 AM
--- OUTSIDE RECORDS SUMMARY | 2020-10-11 03:43 | CCD ---
Author Author [facility] Organization [facility] Address Unknown Phone Unavailable Care Team Providers Care Trade Show Coordinator Name Role Phone Duc, Jessie DO Unavailable [...] Unavailable ShantelleMeredith Braxton MD Unavailable Unavailable Shantelle, Mereidth Braxton MD Unavailable Unavailable Shantelle, N Braxton [...] N Braxton MD Unavailable Unavailable Shantelle, N Braxtno MD Unavailable Unavailable Shantelle, N Braxton MD [...] is protected by Article 27-F of the [facility] Public Health law. If you continue you may have access to information: Regarding HIV / AIDS; Provided by facilities licensed or operated by the [facility] Office of Mental Health; or Provided by the [facility] Office for People With Developmental Disabilities. If such information is present, then the following [facility] mandated warning applies: This information has been [...] law may result in a fine or alf sentence or both. A general authorization for [...] PLL[facility]) Unknown Male Problem [facility] ([facility]) Encounters Encounter Providers Location Date Indications Data Source(s ) Outpatient Attender: Jessie Fuentes 07/18 08:00:00 AM EST [facility] ([facility] ) Outpatient Attender: Braxton Pepper MD Main Office 06/26/2020 09:15:00 AM EDT [facility] ([facility]) Outpatient Attender: Braxton Pepper MD Main Office 02/19/2020 09:30:00 AM EDT [facility] ([facility]) Outpatient Attender: Jessie Fuentes 10/13 10:00:00 AM EST [facility] ([facility] ) Outpatient Attender: Braxton Pepper MDReferrer: Braxton Pepper MD M [facility] 09/07/2019 12:00:00 AM EST - 09/07/2019 01:47:40 PM [facility] Inpatient Attender: FABIO Alanis nder: Braxton Pepper MDAdmitter: Braxton Pepper MD [id number] 08/25/2019 04:18:43 PM EST - 09/15/2019 10:23:00 AM [facility] Patient discharged. Inpatient Attender: Braxton Pepper MDAtten rishabh: FABIO BURGOSAdmitter: Braxton Pepper MD [id number] 07/25/2019 07:57:01 AM EST - 08/09/2019 01:37:00 PM EST Patient discharged. Medications Medication Brand Name Start [...] EST ORAL completed [facility] ([facility]) 40 mg 09/22/2019 12:00:00 AM EST [...] Wed09/15/19 at 0900
Hold for SBP<100; HR<55
Medication administered onsite pantoprazole 40 MG Delayed Release Oral Tablet pantoprazole (PROTONIX) EC tablet 40 mg pantoprazole (PROTONIX) EC tablet 40 mg 09/15/2019 09:00:[address] 40 mg Oral active Gastroesophageal Reflux Diseas e 40 mg, Oral, Daily, Indications: Gastroesophageal Reflux Disease, First dose on Wed09/15/19 at 0900 Gastroesophageal Reflux Disease Medication administered onsite Amlodipine 5 MG Oral Tablet amLODIPine (NORVASC) table t 5 mg amLODIPine (NORVASC) tablet 5 mg 09/15/2019 09:00:00 AM EST 5 mg Oral active 5 mg, Oral, Daily, First dose on Wed09/15/19 at 0900
Hold for SBP<110
Medication administered onsite Aspirin 81 MG Delayed Release Oral Tablet aspirin EC t ablet 81 mg aspirin EC tablet 81 mg 09/15/2019 09:00:00 AM EST 81 mg Oral activ e 81 mg, Oral, Daily, First dose on Wed09/15/19 at 0900 Medication administered onsite ferrous gluconate 324 MG Oral Tablet ferrous gluconate (FERGON) tablet 324 mg ferrous gluconate (FERGON) tablet 324 mg 09/15/2019 07:00:00 AM EST 324 mg Oral active 324 mg, Oral, Daily with breakfast, First dose on Wed09/15/19 at 0700
separate as far as possible from antacids, take with food
Medication administered onsite heparin (porcine) injection 5,000 Units [id number] 09/15/19 06:00:00 AM EST 5000 U Subcutaneous active 5,000 Units , Subcutaneous, Every 8 hours (scheduled), First dose on Wed09/15/19 at 0600, PACU & Post-op
If platelet count is less than 100,000 or hematocrit is less than 25, or if there is a 5 point decrease in hematocrit, do not give the dose and call physician/designee.
Medication administered onsite Acetaminophen 325 MG / Hydrocodone Nolvia trate 5 MG Oral Tablet HYDROcodone- acetaminophen (NORCO) 5-325 MG per tablet HYDROcodone-acetaminophen (NORCO) 5- 325 MG per tablet 09/15/2019 12:00:00 AM EST 1 {tbl} Oral active Take 1 tablet by mouth every 6 (six) hours as needed for pain Max Daily Amount: 4 tablets 5-325 mg 09/15/2019 12:00:00 AM EST tablet [...] this medication through syringe adapter set ref [phone]. Flush line after use
Perioperative Pharmacoprophylaxis Medication administered onsite Oxycodone Hydrochloride 5 MG Oral Tablet oxyCODONE (ROXICODONE) immediate release tablet 5-10 mg oxyCODONE (ROXICODONE) immediate release tablet 5-10 m g 09/14/2019 07:01:26 PM EST Oral active 5-10 mg, Oral, Every 4 hours PRN, moderate pain (4-6), severe pain (7-10), Starting Yvette 09/14/19 at 1901, For 161 hours, PACU & Post-op Medication administered onsite sennosides, S[facility]ING 8.6 MG Oral Tablet senna (SENOKOT) tab let 8.6 mg senna (SENOKOT) tablet 8.6 mg 09/14/2019 02:00:00 PM EST 8.6 mg Oral act sylvia 8.6 mg, Oral, Daily, First dose on Yvette 09/14/19 at 1400, PACU & Post-op Medication administered onsite Sucralfate 1000 MG Oral [...] should NOT be administered via feeding tubes.
Medication administered onsite normal saline flush 0.9 % injection 3 mL [id number] 09/14/2019 02:00:00 PM EST 3 mL Intravenous active 3 mL , Intravenous, PROTOCOL, First dose on Yvette 09/14/19 at 1400, PACU & Post-op
With good PO intake (600 ml X 1 shift)
Medication administered onsite sodium chloride 0.9% (NS) infusion [id number] 09/14/2019 02:00:00 P M EST Intravenous aborted at 100 mL/hr, Intravenous, Continuous, Starting Yvette 09/14/19 at 1400 Medication administered onsite bismuth subsalicylate 17.5 MG/ML Oral Eric spension bismuth subsalicylate (PEPTO BISMOL) 262 MG/15ML suspension 15 mL bismuth subsalicylate (PEPTO BISMOL) 262 MG/15ML suspension 15 mL 09/14/2019 12:53:26 PM EST 15 mL Oral active 15 mL, Oral, Every 6 hours PRN, indigestion, Starting Yvette 09/14/19 at 1253 Medication administered onsite Magnesium Hydroxide 80 MG/ML Oral Suspen gee magnesium hydroxide (MILK OF MAGNESIA) 400 MG/5ML suspension 30 mL magnesium hydroxide (MILK OF MAGNESIA) 4 00 MG/5ML suspension 30 mL 09/14/2019 12:53:26 PM EST 30 mL Oral active 30 mL, Oral, Daily PRN, constipation, Starting Yvette 09/14/19 at 1253, PACU & Post-op Medication administered onsite Bisacodyl 10 MG Rectal Suppository bisacodyl (DULCOLAX ) suppository 10 mg bisacodyl (DULCOLAX) suppository 10 mg 09/14/2019 12:53:26 PM EST 10 mg Rectal active 10 mg, Rectal, Daily PRN, constipation, Starting Yvette 09/14/19 at 1253, PACU & Post-op Medication administered onsite POLYETHYLENE GLYCOL 3350 142 MG/ML Oral Solution polyethylene glycol (GLYCOLAX) packet 17 g polyethylene glycol (GLYCOLAX) packet 17 g 09/14/2019 12:53:26 PM EST 17 g Oral active 17 g, Or al, Daily PRN, if no result from milk of magnesia (MOM), Starting Yvette 09/14/19 at 1253, PACU & Post-op Medication administered onsite ondansetron (ZOFRAN) injection 4 mg [id number] 09/14/2019 12:53:2 6 PM EST 4 mg Intravenous active 4 mg, In travenous, As needed, nausea, vomiting, Starting Yvette 09/14/19 at 1253, PACU & Post-op
Give for one dose if no response from metoclopramide
Medication administered onsite 2 ML Metoclopramide 5 MG/ML Prefilled Sy ringe metoclopramide (REGLAN) injection 10 mg metoclopramide (REGLAN) injection 10 mg 09/14/2019 12:53:[address] 10 mg Intravenous active 10 mg, I ntravenous, Every 6 hours PRN, heartburn, Starting Yvette 09/14/19 at 1253, PACU & Post-op Medication administered onsite Acetaminophen 325 MG Oral [...] mg from all sources in 24 hours."
Medication administered onsite Acetaminophen 650 MG Rectal Suppository acetaminophen (TYLENOL) suppository 650 mg acetaminophen (TYLENOL) suppository 650 mg 09/14/2019 12:53:25 P M EST 650 mg Rectal active 650 mg, Re ctal, Every 4 hours PRN, fever, greater than 101.6 or headaches, Starting Yvette 09/14/19 at 1253, PACU & Post-op Medication administered onsite fentaNYL Citrate (PF) (SUBLIMAZE) injection 25 mcg [id number] 09/14/2019 10:52:20 AM EST 25 ug Intravenous aborted 25 mcg, Intravenous, Every 5 min PRN, moderate pain (4 to 6), Starting Yvette 09/14/19 at 1052, For 10 doses, PACU (only) Medication administered onsite 5-325 mg 08/09/2019 12:00:00 [...] for pain Max Daily Amount: 4 tablets chlorhexidine gluconate 40 MG/ML Medicat ed Liquid Soap chlorhexidine (HIBICLENS) 4 % external liquid chlorhexidine (HIBICLENS) 4 % external liquid 08/09/20 12:00:00 AM EST 1 {application} Topical aborted Apply 1 application topically daily as needed Morphine Sulfate (PF) injection 4 mg [id number] 08/08/2019 11:51: 29 AM EST 4 mg Intravenous active 4 mg, In travenous, Every 2 hour PRN, severe pain (7-10), Starting Wed08/08/19 at 1151, For 7 days, PACU & Post-op Medication administered onsite Oxycodone Hydrochloride 5 MG Oral Tablet oxyCODONE (ROXICODONE) immediate release tablet 5 mg oxyCODONE (ROXICODONE) immediate release tablet 5 mg 08/08/2019 11:51:29 AM EST 5 mg Oral active 5 mg, Oral, Every 4 hours PRN, moderate pain (4-6), Starting Wed08/08/19 at 1151, For 7 days, PACU & Post-op Medication administered onsite Alprazolam 0.25 MG Oral Tablet ALPRAZolam (XANAX) tabl et 0.25 mg ALPRAZolam (XANAX) tablet 0.25 mg 08/08/2019 11:51:28 AM EST 0.25 mg Oral active 0.25 mg, Oral, 3 times daily PRN, anxiety, Starting Wed08/08/19 at 1151, For 7 days Medication administered onsite 5 mg 04/04/2019 12:00:00 [...] by mouth daily as needed for pain Insurance Providers Payer name Policy type / Coverage type Policy ID Covered republican ID Covered republican's relationship to casillas Policy [place] Plan Information [facility] [id number] SP [id number] [facility] [id number] [facility] [id number] [facility] [id number] [place] (Old) Medigap Part B [id number] Self [id number] Umr (New [place]) Commercial [id number] Self [id number] [facility] [id number] [employer] (Old) Medigap Part B [id number] Self [id number] [employer] (Old) Medigap Part B [id number] Self [id number] [place] (Old) Medigap Part B [id number] Self [id number] [employer] [id number] [place] [id number] UMR [id number] [place] [id number] UMR [facility] [id number] SP [id number] [employer] [id number] SP [id number] [place] (Old) Medigap Part B [id number] Self [id number] [employer] [id number] [place]ola [id number] [employer] [id number] [place]ola [id number] [employer] PI PI POMCO [id number] Leola [id number] [employer] [id number] Leola [id number] [employer] Commercial [id number] Self [id number] [employer] PPO O [id number] S [id number] [place] Ppo Commercial [id number] Self [id number] [employer] Ppo Commercial [id number] Self [id number] [place] Ppo Commercial [id number] Self [id number] POM[employer] [id number] SP [id number] [place] Commercial Self POMCO [id number] SP [id number] [employer] PPO O [id number] S [id number] [facility] School/Replaced By [facility] Com Workers Compensation Leola f [employer] Commercial Self VANIA CLAIM ADMIN WORK COMP [id number] SP [id number] OTHER [employer]EMPLOYER [id number] SP [id number] Problems, Conditions, and Diagnoses Code Display Name Description Problem Type Effective Dates Data Source(s) 31013713 Hyperlipidemia Hyperlipidemia Problem 09/20/2019 12:00: 00 AM EST [facility] ([facility]) [id number] Coronary arteriosclerosis Coronary arteriosclerosis Pr oblem 09/20/2019 12:00:00 AM EST [facility] ([facility]) N18.3 CKD (chronic kidney disease) stage 3, GF R 30-59 ml/min CKD (chronic kidney disease) stage 3, GFR 30-59 ml/min [id number] 09/14/2019 12:00:00 AM E [facility] K21.9 GERD (gastroesophageal reflux disease) G ERD (gastroesophageal reflux disease) [id number] 09/14/2019 12:00:00 AM [facility] I10 Hypertension Hypertension [id number] 09/14/2019 12:00:00 A M [facility] K27.9 Peptic ulcer Peptic ulcer [id number] 09/14/2019 12:00:00 A M [facility] I25.10 Coronary artery disease Coronary artery disease 192613 09/14/2019 12:00:00 AM [facility] E78.5 Hyperlipidemia, acquired Hyperlipidemia, acquired 6457 200009/14/2019 12:00:00 AM [facility] I73.9 Peripheral vascular disease Peripheral vascular diseas e [id number] 09/13/2019 12:00:00 AM [facility] I73.9 Peripheral vascular disease, unspecified Peripheral vascular disease, unspecified Diagnosis 09/14/2019 06:00:00 AM [facility] I70.222 Atherosclerosis of citizen [place] ar teries of extremities with rest pain, left leg Atherosclerosis of citizen [place] arteries of ex Diagnosis 09/07/2019 12:58:17 PM [facility] Surgeries/Procedures Procedure Description Date Indications Data Source(s) DUP-SCAN LXTR ART/ARTL BPGS UNI/LMTD STUDY 02/19/2020 12:00:00 AM EDT [facility] ([facility]) DUP-SCAN LXTR ART/ARTL BPGS UNI/LMTD STUDY 09/22/2019 12:00:00 AM EST [facility] ([facility]) DUP-SCAN LXTR ART/ARTL BPGS UNI/LMTD STUDY 09/22/2019 12:00:00 AM EST [facility] ([facility]) BLOOD COUNT COMPLETE AUTOMATED CBC Timed 09/15/2019 4:27 A M EST 09/15/2019 09:27:00 AM [facility] BASIC METABOLIC PANEL CALCIUM TOTAL BASIC METABOLIC PANEL Timed 09/15/2019 4:27 AM EST 09/15/2019 09:27:00 AM [facility] BYP OTH/THN VEIN FEM-ANT TIBL PST TIBL/PRONEAL CREATI ON, BYPASS, ARTERIAL, FEMORAL TO TIBIAL 09/14/2019 7:57 AM EST Atherosclerosis of [place] arteries of extremities with rest pain, left leg 09/14/2019 12:57:00 PM EST - 09/14/2019 04:24:00 PM EST Atherosclerosis of [place] arteries of extremities with rest pain, left leg Atherosclerosis of citizen [place] arteries of ex tremities with rest pain, left leg POCT VENOUS BLOOD GAS W CIARAN POCT VENOUS BLOOD GAS W CIARAN roche 09/14/2019 6:59 AM EST 09/14/2019 11:59:00 AM EST S [facility] Bypass Graft Other Than Vein Femoral-Ant Tib/Post Tib/Peron Art 09/14/2019 12:00:00 AM EST DONALD ([facility]) BLOOD TYPING ABO TYPE AND SCREEN Routine 09/07/2019 1:40 PM EST Atherosclerosis of [place] arteries of extremities with rest pain, left leg 09/07/2019 06:40:00 PM EST Atherosclerosis of [place] arteries of ex tremities with rest pain, left leg Atherosclerosis of citizen [place] arteries of ex tremities with rest pain, left leg PROTHROMBIN TIME PROTIME-INR Routine 09/07/2019 1:30 PM EST Atherosclerosis of citizen [place] arteries of extremities with rest pain, left leg 09/07/2019 06:30:00 PM EST Atherosclerosis of [place] arteries of ex tremities with rest pain, left leg Atherosclerosis of citizen [place] arteries of ex tremities with rest pain, left leg BLOOD COUNT COMPLETE AUTOMATED CBC Routine 9 1:30 PM EST Atherosclerosis of citizen [place] arteries of extremities with rest pain, left leg 09/07/2019 06:30:00 PM EST Atherosclerosis of [place] arteries of ex tremities with rest pain, left leg Atherosclerosis of citizen [place] arteries of ex tremities with rest pain, left leg COMPREHENSIVE METABOLIC PANEL COMPREHENSIVE METABOLIC PANEL Emili roche 09/07/2019 1:30 PM EST Atherosclerosis of citizen [place] arteries of extremities with rest pain, left leg 09/07/2019 06:30:00 PM EST Atherosclerosis of [place] arteries of ex tremities with rest pain, left leg Atherosclerosis of citizen [place] arteries of ex tremities with rest pain, left leg Results ID Date Data Source [id number] 07/18/2020 09:21:00 AM EST [facility] ([facility]) Name Value Range Interpretation Code Description Data Suzette rce(s) Supporting Document(s) Ferritin [Mass/volume] in Serum or Plasma 38 ng/mL 26-388 [facility] ([facility]) ID Date Data Source [id number] 07/18/2020 09:21:00 AM EST [facility] ([facility]) Name Value Range Interpretation Code Description Data Suzette rce(s) Supporting Document(s) Iron (Fe) 70 ug/dL 65-175 [facility]) Total Iron Binding Capacity 411 ug/dL 250-450 ME DENT ([facility]) Percent Saturation 17.0 % 19.7-50.0 [facility] ([facility]) ID Date Data Source [id number] 07/18/2020 09:20:00 AM EST [facility] ([facility]) Name Value Range Interpretation Code Description Data Suzette rce(s) Supporting Document(s) Cholesterol [Mass/volume] in Serum or Plasma 149 mg/dL 131-200 [facility] ([facility]) Triglyceride [Mass/volume] in Serum or Plasma 137 mg/dL 30-150 [facility] ([facility]) Cholesterol in LDL [Mass/volume] in Serum or Plasma by calcu lation 90 CALC 50-159 [facility] ([facility]) Cholesterol in HDL [Mass/volume] in Serum or Plasma 32 mg/dL 35-60 [facility] ([facility]) ID Date Data Source [id number] 07/18/2020 09:20:00 AM EST [facility] ([facility]) Name Value Range Interpretation Code Description Data Suzette rce(s) Supporting Document(s) Glucose [Mass/volume] in Serum or Plasma 108 mg/dL 74-99 [facility] ([facility]) 100-125 mg/dL PRE-DIABETES/FASTING >126 mg/dL DIABETES/FASTING Creatinine 1.9 mg/dL 0.6-1.3 [facility] Urea nitrogen [Mass/volume] in Serum or Plasma 37 mg/dL 7-18 [facility] ([facility]) Potassium [Moles/volume] in Serum or Plasma 4.5 meq/L 3.5-5.1 [facility] ([facility]) Sodium [Moles/volume] in Serum or Plasma 143 meq/L 136-145 [facility] ([facility]) Chloride [Moles/volume] in Serum or Plasma 108 meq/L 98-107 [facility] ([facility]) Calcium [Mass/volume] in Serum or Plasma 9.1 mg/dL 8.5-10.1 [facility] ([facility]) Carbon dioxide, total [Moles/volume] in Serum or Plasma 27 meq/L 21 -32 [facility] ([facility]) Total Bilirubin 0.5 mg/dL 0.2-1.0 [facility] ([facility]) Aspartate aminotransferase [Enzymatic activity/volume] in Serum or Plasma 27 U/L 15-37 [facility] ([facility] ) Alkaline phosphatase isoenzyme [Units/volume] in Serum or Pl asma 98 mg/dL 46-116 [facility] ([facility]) Albumin [Mass/volume] in Serum or Plasma 3.2 g/dL 3.4-5.0 [facility] ([facility]) A/G Ratio 0.68 CALC 1.00-1.90 [facility]) Proteinase 3 Ab [Units/volume] in Serum 7.9 g/dL 6.4-8.2 [facility] ([facility]) Alanine aminotransferase [Enzymatic activity/volume] in Seru m or Plasma 33 U/L 12-78 [facility] ([facility]) Glomerular filtration rate/1.73 sq M pre dicted among non-blacks [Volume Rate/Area] in Serum or Plasma by Creatinine-based formula (MDRD) 36 mL/min [facility] ([facility]) Glomerular filtration rate/1.73 sq M pre dicted among blacks [Volume Rate/Area] in Serum or Plasma by Creatinine-based formula (MDRD) 44 mL/min [facility] ([facility]) <content>CHRONIC KIDNEY DISEASE STAGING PER NKF</content>
<content></content>
<content>STAGE I & II GFR >= 60 NORMAL TO MILDLY DECREASED</content>
<content>STAGE III GFR 30-59 MODERATELY DECREASED</content>
<content>STAGE IV GFR 15-29 SEVERELY DECREASED</content>
<content>STAGE V GFR <15 VERY LITTLE GFR LEFT</content>
<content>ESRD GFR <15 ON TRAVEL CLERK</content>
<content></content> ID Date Data Source [id number] 07/18/2020 09:20:00 AM EST [facility] ([facility]) Name Value Range Interpretation Code Description Data Suzette rce(s) Supporting Document(s) Magnesium 2.2 mg/dL 1.8-2.4 [facility] ([facility]) ID Date Data Source [id number] 07/18/2020 09:20:00 AM EST [facility] ([facility]) Name Value Range Interpretation Code Description Data Suzette rce(s) Supporting Document(s) Erythrocytes [#/volume] in Blood by Automated count 4.82 x10*6/UL 4.2 0-6.30 [facility] ([facility]) Leukocytes [#/volume] in Blood by Automated count 7.7 x10*3/UL 4.1-10 .9 [facility] Hemoglobin [Mass/volume] in Blood 14.0 g/dL 12.0-18.0 [facility] ([facility]) MCV 89.2 fL 80.0-97.0 [facility] ([facility]) MCH 29.1 pg 26.0-32.0 [facility] ([facility]) Hematocrit [Volume Fraction] of Blood by Automated count 43.0 % 3 7.0-51.0 [facility] Platelets [#/volume] in Blood by Automated count 259 x10*3/UL 140-440 [facility] Erythrocyte distribution width [Ratio] by Automated count 14.6 % 11.6-13.7 [facility] ([facility]) MCHC 32.6 g/dL 31.0-38.0 [facility] [facility]) Lymph % 21.9 % 10.0-58.5 [facility] Mid % 6.2 % 1.7-9.3 [facility] MPV 7.7 FL 7.8-11.0 [facility] Lymph # 1.7 x10*3/UL 0.6-4.1 [facility] ([facility]) Neut % 71.9 % 37.0-92.0 [facility] Neut # 5.6 x10*3/UL 2.0-7.8 [facility] ([facility]) Mid # 0.4 x10*3/UL 0.1-0.6 [facility] ([facility]) ID Date Data Source [id number] 05/01/2020 06:40:00 PM EDT [facility] ([facility]) Name Value Range Interpretation Code Description Data Suzette rce(s) Supporting Document(s) Lipoprotein lipase [Enzymatic activity/volume] in Serum or P lasma 236 U/L 73-393 [facility] ([facility]) ID Date Data Source [id number] 05/01/2020 06:40:00 PM EDT [facility] ([facility]) Name Value Range Interpretation Code Description Data Suzette rce(s) Supporting Document(s) Glucose, Fasting 93 mg/dL 70-100 [facility] ([facility]) Blood Urea Nitrogen 41 mg/dL 7-18 [facility] ([facility]) Creatinine For GFR 1.69 mg/dL 0.70-1.30 [facility] ([facility]) Sodium Level 141 meq/L 136-145 [facility] ([facility]) Glomerular Filtration Rate 43.8 MED ENT ([facility]) <content>Units are mL/min/1.73 m2</content>
<content></content>
<content>Chronic Kidney Disease Staging per NKF:</content>
<content></content>
<content>Stage I & II GFR >=60 Normal to Mildly Decreased</content>
<content>Stage III GFR 30-59 Moderately Decreased</content>
<content>Stage IV GFR 15-29 Severely Decreased</content>
<content>Stage V GFR <15 Very Little GFR Left</content>
<content>ESRD GFR <15 on TRAVEL CLERK</content>
<content></content> Chloride Level 111 meq/L 98-107 [facility] ([facility]) Carbon Dioxide Level 21 meq/L 21-32 [facility] ([facility]) Potassium Serum 4.7 meq/L 3.5-5.1 [facility] ([facility]) Anion Gap 9 meq/L 8-16 [facility] [facility]) Calcium Level 9.3 mg/dL 8.8-10.2 [facility] ([facility]) ID Date Data Source [id number] 05/01/2020 06:40:00 PM EDT [facility] Name Value Range Interpretation Code Description Data Suzette rce(s) Supporting Document(s) Alkaline Phosphatase 65 U/L 45-117 [facility] ([facility]) Alt/SGPT 32 U/L 12-78 [facility] [facility]) Ast/Sgot 27 U/L 7-37 [facility] ([facility]) Bilirubin,Total 0.8 mg/dL 0.2-1.0 [facility] ([facility]) Albumin 3.4 GM/DL 3.2-5.2 [facility] Total Protein 7.6 GM/DL 6.4-8.2 [facility] ([facility]) Bilirubin,Direct 0.2 mg/dL 0.0-0.2 [facility] ([facility]) Albumin/Globulin Ratio 0.[address] [facility] ([facility]) ID Date Data Source [id number] 05/01/2020 06:40:00 PM EDT [facility] Name Value Range Interpretation Code Description Data Suzette rce(s) Supporting Document(s) CK-MB Value Mass 2.0 ng/mL [facility] ([facility]) CPK Creatine Phosphokinase 103 U/L 39-308 [facility] E[facility] ([facility]) Troponin I Laboratory test result [facility] <content>Troponin I Reference Interval f or Siemens [place] LOCI:</content>
<content></content>
<content>99th Percentile= 0.00-0.045 ng/ml</content>
<content></content>
<content>Risk Stratification:</content>
<content><= 0.10 ng/ml Decreased Risk for Adverse Clinical</content>
<content>Events.</content>
<content>0.10-1.50 ng/ml Increased Risk for Adverse Clinical</content>
<content>Events. Evaluation of additional</content>
<content>criterion and/or repeat testing in 2-6</content>
<content>hours is suggested to rule out myocardial</content>
<content>damage.</content>
<content>>= 1.50 ng/ml Indicative of Myocardial Injury.</content>
<content></content> MB/CK Relative Index 1.94 [facility] ([facility]) <content>DIAGNOSIS CRITERIA</content>
<content>MMB ng/ml Relative Index (RI)</content>
<content>NON-AMI < or = 5 N/A</content>
<content>GERARDO ZONE > 5 < or = 4</content>
<content>AMI > 5 > 4</content>
<content></content> ID Date Data Source [id number] 05/01/2020 06:40:00 PM EDT [facility] ([facility]) Name Value Range Interpretation Code Description Data Suzette rce(s) Supporting Document(s) White Blood Count 13.3 10 4.0-10.0 [facility] ([facility]) Red Blood Count 4.40 10 4.30-6.10 [facility] ([facility]) Hemoglobin 13.5 g/dL 13.5-17.5 [facility] ([facility]) Hematocrit 42.2 % 42.0-52.0 [facility] ([facility]) Mean Corpuscular Hemoglobin 30.7 pg 27.0-33.0 ME DENT ([facility]) Mean Corpuscular Volume 95.9 fl 80.0-96.0 [facility] ([facility]) Mean Corpuscular HGB Conc 32.0 g/dL 32.0-36.5 MEDE NT ([facility]) Platelet Count, Automated 226 10 150-450 MEDE NT ([facility]) Red Cell Distribution Width 15.2 % 11.5-14.5 [facility] ([facility]) Neutrophils % 79.6 % 36.0-66.0 [facility] ([facility]) Eos % 1.5 % 0.0-3.0 [facility]) [place] % 5.6 % 0.0-5.0 [facility]) Lymph % 12.0 % 24.0-44.0 [facility]) Immature Granulocyte % 0.6 % 0-3.0 [facility] ([facility]) Nucleated Red Blood Cell % 0.0 % 0-0 MED [facility] ([facility]) Baso % 0.7 % 0.0-1.0 [facility] Eos # 0.2 10 0.0-0.5 [facility] [place] # 0.7 10 0.0-0.8 [facility]) Lymph # 1.6 10 1.5-5.0 [facility]) Neutrophils # 10.6 10 1.5-8.5 [facility] ([facility]) Baso # 0.1 10 0.0-0.2 [facility]) ID Date Data Source [id number] 02/19/2020 08:54:00 AM EDT [facility] ([facility]) Name Value Range Interpretation Code Description Data Suzette rce(s) Supporting Document(s) Bypass Graft Ultrasound Lower Extremity Left Laboratory test result [facility] ([facility]) ID Date Data Source [id number] 01/24/2020 11:15:00 AM EDT [facility] ([facility]) Name Value Range Interpretation Code Description Data Suzette rce(s) Supporting Document(s) Blood Urea Nitrogen 43 mg/dL 7-18 [facility] ([facility]) Creatinine For GFR 1.79 mg/dL 0.70-1.30 [facility] ([facility]) Glucose, Fasting 113 mg/dL 70-100 [facility] ([facility]) Potassium Serum 4.7 meq/L 3.5-5.1 [facility] ([facility]) Glomerular Filtration Rate 41.2 [facility] ([facility]) <content>Units are mL/min/1.73 m2</content>
<content></content>
<content>Chronic Kidney Disease Staging per NKF:</content>
<content></content>
<content>Stage I & II GFR >=60 Normal to Mildly Decreased</content>
<content>Stage III GFR 30-59 Moderately Decreased</content>
<content>Stage IV GFR 15-29 Severely Decreased</content>
<content>Stage V GFR <15 Very Little GFR Left</content>
<content>ESRD GFR <15 on TRAVEL CLERK</content>
<content></content> Sodium Level 143 meq/L 136-145 [facility] ([facility]) Chloride Level 110 meq/L 98-107 [facility] ([facility]) Anion Gap 4 meq/L 8-16 [facility] Carbon Dioxide Level 29 meq/L 21-32 [facility] ([facility]) Calcium Level 8.7 mg/dL 8.8-10.2 [facility] ([facility]) ID Date Data Source [id number] 10/13/2019 11:22:00 AM EST [facility] ([facility]) Name Value Range Interpretation Code Description Data Suzette rce(s) Supporting Document(s) Urea nitrogen [Mass/volume] in Serum or Plasma 31 mg/dL 7-18 [facility] ([facility]) Creatinine 1.7 mg/dL 0.6-1.3 [facility] ([facility]) Glucose [Mass/volume] in Serum or Plasma 105 mg/dL 74-99 [facility] ([facility]) 100-125 mg/dL PRE-DIABETES/FASTING >126 mg/dL DIABETES/FASTING Potassium [Moles/volume] in Serum or Plasma 4.5 meq/L 3.5-5.1 [facility] ([facility]) Sodium [Moles/volume] in Serum or Plasma 141 meq/L 136-145 [facility] ([facility]) Chloride [Moles/volume] in Serum or Plasma 108 meq/L 98-107 [facility] ([facility]) Calcium [Mass/volume] in Serum or Plasma 8.6 mg/dL 8.5-10.1 [facility] ([facility]) Carbon dioxide, total [Moles/volume] in Serum or Plasma 25 meq/L 21 -32 [facility] ([facility]) Alkaline phosphatase isoenzyme [Units/volume] in Serum or Pl asma 98 mg/dL 46-116 [facility] ([facility]) Total Bilirubin 0.6 mg/dL 0.2-1.0 [facility] ([facility]) Alanine aminotransferase [Enzymatic activity/volume] in Seru m or Plasma 29 U/L 12-78 [facility] ([facility]) Aspartate aminotransferase [Enzymatic activity/volume] in Serum or Plasma 29 U/L 15-37 [facility] ([facility] ) A/G Ratio 0.70 CALC 1.00-1.90 [facility]) Albumin [Mass/volume] in Serum or Plasma 3.3 g/dL 3.4-5.0 [facility] ([facility]) Proteinase 3 Ab [Units/volume] in Serum 8.0 g/dL 6.4-8.2 [facility] ([facility]) Glomerular filtration rate/1.73 sq M pre dicted among blacks [Volume Rate/Area] in Serum or Plasma by Creatinine-based formula (MDRD) 50 mL/min [facility] ([facility]) <content>CHRONIC KIDNEY DISEASE STAGING PER NKF</content>
<content></content>
<content>STAGE I & II GFR >= 60 NORMAL TO MILDLY DECREASED</content>
<content>STAGE III GFR 30-59 MODERATELY DECREASED</content>
<content>STAGE IV GFR 15-29 SEVERELY DECREASED</content>
<content>STAGE V GFR <15 VERY LITTLE GFR LEFT</content>
<content>ESRD GFR <15 ON TRAVEL CLERK</content>
<content></content> Glomerular filtration rate/1.73 sq M pre dicted among non-blacks [Volume Rate/Area] in Serum or Plasma by Creatinine-based formula (MDRD) 41 mL/min [facility]) ID Date Data Source [id number] 10/13/2019 11:22:00 AM EST [facility]) Name Value Range Interpretation Code Description Data Suzette rce(s) Supporting Document(s) Leukocytes [#/volume] in Blood by Automated count 6.8 x10*3/UL 4.1-10 .9 [facility] ([facility]) Erythrocytes [#/volume] in Blood by Automated count 4.40 x10*6/UL 4.2 0-6.30 [facility] ([facility]) Hematocrit [Volume Fraction] of Blood by Automated count 40.1 % 3 7.0-51.0 [facility] Hemoglobin [Mass/volume] in Blood 13.0 g/dL 12.0-18.0 [facility] ([facility]) MCV 91.0 fL 80.0-97.0 [facility]) MCHC 32.5 g/dL 31.0-38.0 [facility] ([facility]) Erythrocyte distribution width [Ratio] by Automated count 15.2 % 11.6-13.7 [facility] ([facility]) MCH 29.6 pg 26.0-32.0 [facility]) Lymph % 23.0 % 10.0-58.5 [facility] ([facility]) MPV 8.1 FL 7.8-11.0 [facility] ([facility]) Platelets [#/volume] in Blood by Automated count 213 x10*3/UL 140-440 [facility] ([facility]) Neut % 70.5 % 37.0-92.0 [facility] Mid % 6.5 % 1.7-9.3 [facility] Lymph # 1.5 x10*3/UL 0.6-4.1 [facility] ([facility]) Mid # 0.5 x10*3/UL 0.1-0.6 [facility] ([facility]) Neut # 4.8 x10*3/UL 2.0-7.8 [facility] ([facility]) ID Date Data Source [id number] 09/22/2019 09:55:00 AM EST [facility] ([facility]) Name Value Range Interpretation Code Description Data Suzette rce(s) Supporting Document(s) Bypass Graft Ultrasound Lower Extremity Right Laboratory test result [facility] ([facility]) ID Date Data Source [id number] 09/21/2019 09:00:16 AM EST [facility] NT INFORMATIONPatient MRN Name Date of Age Gend*PT [id number] Enoc Wayne 1955 64 years M IPPT Location Admission Date/Time Visit ID Attending [id number] 09/14/19 0600 --- --- EPI ID CSN Admitting Provider [id number] Braxton Pepper MD([id number]) [place] [address] OPERATIVE REPORT OPNAME: ENOC WAYNE#: [id number] #: [id number] ADMISSION DATE: 09/14/2019DOB: 1955 SEX: M PT TYPE: I SURACCT #: [id number] CARE PHYSICIAN: JESSIE GTZ OF OPERATION: 09/14/2019 PREOPERATIVE DIAGNOSES:Left leg ischemia; large seroma in the left calf, status post femoralpopliteal bypass graft, which is occluded.OPERATIVE PROCEDURES:1. Excision of a large seroma in the left popliteal space.2. Femoral to posterior tibial artery bypass graft using a 6 mm distalflow graft.3. Placement of Prevena drainage over the incisions.SURGEON:Braxton Pepper MD.COMPLEX HUMAN RESOURCES MANAGER:NED JimenezTHESIA:General endotracheal anesthesia.DESCRIPTION OF PROCEDURE:This gentleman has marked ischemia in the left leg. He has got a largeseroma in the left calf after a femoral popliteal bypass graft done in [facility]. This attempt had been made to drain [...] loss wasabout 200 mL.SHERRIE SALGADO/KANIKA Job #: [id number] DOC #: [id number] Name Value Range Interpretation Code Description Data Suzette rce(s) Supporting Document(s) ID Date Data Source [id number] 09/19/2019 10:14:06 AM EST [facility] NT INFORMATIONPatient MRN Name Date of Age Gend*PT [id number] Carl Wayneel Katelyn 1955 64 years M IPPT Location Admission Date/Time Visit ID Attending [id number] 09/14/19 0600 --- --- EPI ID CSN Admitting Provider [id number] Braxton Pepper MD([id number]) Attestation signed by Braxton Pepper MD at 09/19/2019 10:14 AMI saw and evaluated the patient and reviewed note. I agree with the history,physical and medical decision makingSignature: LEON Salgadoate: September 19, 2019Time: 10:13 AM Surgical Discharge SummaryEnoc Kimball: [id number] date: 09/14/2019Admitting Physician: LEON Salgadoischarge date and [...] Get Your MedicationsThese medications were sent to [facility] - [place], [place] - [address] [place] [address] HYDROcodone-acetaminophen 5-325 MG per tabletIndication for Admission: 64Y with PAD and LLE claudication, history of LLEseroma since 2009, elected surgical revascularization with Dr. Pepper.Hospital Course & Complications: He presented to [facility] on 09/14/2019 and wasadmitted inpatient to Dr. [...] Name Value Range Interpretation Code Description Data [facility] rce(s) Supporting Document(s) ID Date Data Source [id number] 09/15/2019 05:35:15 AM EST [facility] Name Value Range Interpretation Code Description Data [facility]) Supporting Document(s) SODIUM 141 mmol/L (136-145) [facility] POTASSIUM 4.6 mmol/L (3.6-5.2) [facility] CHLORIDE 108 mmol/L (100-108) [facility] CO2 27 mmol/L (22-31) [facility] ANION GAP 6 mmol/L (7-16) L [facility] UREA NITROGEN 24 mg/dL (7-24) [facility] CREATININE 1.67 mg/dL (0.80-1.30) H [facility] BUN/CREAT RATIO 14.4 RATIO (10.0-20.0) [facility] GLUCOSE 97 mg/dL (70-99) [facility] CALCIUM 8.0 mg/dL (8.4-10.2) L [facility] GFR 42 ml/min/1.73m2 (>59) L [facility] GFR ( AMER) 51 ml/min/1.73m2 (>59) L [facility] GFR INTERPRETATION [facility] --NORMAL KIDNEY FUNCTION OR MILD DISEASE - GFR >OR= 60CHRONIC KIDNEY DISEASE - GFR 15 - 59RENAL FAILURE - GFR <15 Est. GFR calculation based on the MDRDstudy equation, which assumes a steadystate for creatinine. Est. GFR should notbe used for medication dosing. ID Date Data Source [id number] 09/15/2019 05:08:24 AM EST [facility] Name Value Range Interpretation Code Description Data Suzette rce(s) Supporting Document(s) WBC 10.2 10*3/uL (4.1-11.0) [facility] RBC 3.60 10*6/uL (4.60-6.10) L [facility] HGB 10.7 g/dL (13.5-18.0) L [facility] HCT 32.2 % (41.0-53.0) L [facility] MCV 89.6 fL (80.0-95.0) [facility] MCH 29.8 pg (27.0-32.0) [facility] MCHC 33.2 g/dL (32.0-36.0) [facility] RDW 15.5 % (10.5-14.5) H [facility] PLT 219 10*3/uL (150-450) [facility] MPV 7.4 fL (7.1-10.7) [facility] ID Date Data Source [id number] 09/14/2019 08:22:43 AM EST [facility] NT INFORMATIONPatient MRN Name Date of Age Gend*PT [id number] Enoc Wayne 1955 64 years M IPPT Location Admission Date/Time Visit ID Attending Provider --- --- --- --- EPI ID CSN Admitting Pr tawana [id number] ---Arterial Line PlacementPatient location during procedure: ORStaffingPerformed by: Marquez Zavala MDArterial Line InsertionSite prep: chlorhexidineAnesthesia: noneLaterality: rightLocation: radial arteryNeedle gauge: 20 GTechnique: ultrasound guidedNumber of attempts: 1AssessmentSutured: noDressing: dressing appliedPatient tolerance: tolerated well Name Value Range Interpretation Code Description Data Suzette rce(s) Supporting Document(s) ID Date Data Source [id number] 09/14/2019 08:21:47 AM [facility] NT INFORMATIONPatient MRN Name Date of Age Gend*PT [id number] Enoc Wayne 1955 64 years M IPPT Location Admission Date/Time Visit ID Attending Provider --- --- --- --- EPI ID CSN Admitting Pr ovider [id number] ---AirwayPatient location during procedure: ORUrgency: electiveDifficult airway: [...] cmPlacement verified by: chest auscultation and + [id number]: equal breath sounds bilateralGrade view: grade IIa - partial view of glottis Name Value Range Interpretation Code Description Data Suzette rce(s) Supporting Document(s) ID Date Data Source [id number] 09/14/2019 07:44:24 AM [facility] NT INFORMATIONPatient MRN Name Date of Age Gend*PT [id number] Enoc Wayne 1955 64 years M IPPT Location Admission Date/Time Visit ID [facility]14[facility] 0600 --- Braxton Ppeper MD([id number]) EPI ID CSN Admitting Provider [id number] Braxtno Pepper MD([id number]) H&P reviewed. The patient was examined and there are no changes to the H&P.Risks and benefits of procedures explained and accepted.Braxton Pepper MD7:44 AM Name Value Range Interpretation Code Description Data Suzette rce(s) Supporting Document(s) ID Date Data Source [id number] 09/14/2019 07:03:13 AM EST [facility] Name Value Range Interpretation Code Description Data Suzette rce(s) Supporting Document(s) POC SOURCE [facility] POC TEMPERATURE [facility] POC FIO2 [facility] POC VENOUS PH (7.33-7.43) [facility] POC VENOUS PCO2 (38.0-50.0) [facility] POC VENOUS PO2 (30-50) [facility] POC VENOUS SO2 (60-85) [facility] POC VENOUS BASE EXCESS [facility] POC VENOUS HCO3 (23.0-27.0) [facility] POC VENOUS TOTAL CO2 (24-28) [facility] PERFORMED BY [facility] CLINICAL STAFF POC HCT 36 % (41.0-53.0) L [facility] POC SODIUM (136-145) [facility] POC POTASSIUM 4.8 MMOL/L (3.6-5.2) [facility] POC IONIZED CALCIUM (4.6-5.3) [facility] POC GLU (70-99) [facility] PERFORM LAB [facility] ID Date Data Source [id number] 09/17/2019 12:40:27 AM EST [facility] SPEC EXP DATE 09/17/2019TEST ING SITE PERFORMED AT [address] [place] [address] [id number] NUMBER [id number] COMPONENT TYPE LEUKOPOOR RED CELLS (PT B)UNIT DIVISION 00STATUS OF UNIT REL FROM ALLOCTRANSFUSION STATUS OK TO TRANSFUSECROSSMATCH RESULT COMPATIBLEUNIT NUMBER [id number] COMPONENT TYPE LEUKOPOOR RED CELLSUNIT DIVISION 00STATUS OF UNIT REL FROM ALLOCTRANSFUSION STATUS OK TO TRANSFUSECROSSMATCH RESULT COMPATIBLE Name Value Range Interpretation Code Description Data Suzette rce(s) Supporting Document(s) TRANSFUSE RED CELLS [facility] TESTING SITE PERFORMED AT [address] [place] [id number] ID Date Data Source [id number] 09/07/2019 01:58:21 PM EST [facility] NT INFORMATIONPatient MRN Name Date of Age Gend*PT [id number] Enoc Wayne 1955 64 years M OPPT Location Admission Date/Time Visit ID Attending Provider --- --- --- Braxton Pepper MD([id number]) EPI ID CSN Admitting Provider [id number] ---HISTORY PHYSICALName: Enoc Wayne : 1955 Sex: male [facility] Phys[facility]: Dr. Braxton Pepper.Informant: The patient who [...] CALF LEFT ; Surgeon: Jesus Francisco MD; Location:[facility] [place]; Service: Vascular; Laterality: Left; CARDIAC CATHETERIZATION Patient tells me that this was a negative study; he does not see a womens health nurse practitioner HERNIA REPAIR N/A 04/30/2017 Procedure: REPAIR HERNIA [...] file Gets together: Not on file Attends druze service: Not on file Active member of [...] Wt (!) 124.7 kg (275 lb) | FsZ545% | BMI 40.61 kg/m Body mass index is 40.61 kg/m .Skin is pink, warm and dry.HEENT: Head is normocephalic, atraumatic. [place] conjunctivae. Anicteric sclerae.Pupils are equal, round, reactive [...] ispresent. No edema, no ulcers.IMPRESSION:1. Atherosclerosis of [place] arteries of extremities with rest pain, left [...] sucralfate (CARAFATE) 1 g tablet CONTINUE as [id number]/26/2019 1:58 PMSally MD Ashley Name Value Range Interpretation Code Description Data Suzette rce(s) Supporting Document(s) ID Date Data Source [id number] 09/07/2019 08:00:53 PM EST [facility] GONZALES SPEC EXP DATE 09/15/2019PATI ENT ABO/Rh O POSITIVEANTIBODY SCREEN NEGATIVETESTING SITE PERFORMED AT [address] [place] [address] BANK COMMENT BLOOD TYPE CONFIRMED. Name Value Range Interpretation Code Description Data Suzette rce(s) Supporting Document(s) TYPE AND SCREEN [facility] [place] [facility] ID Date Data Source [id number] 09/08/2019 08:17:36 AM EST [facility] Name Value Range Interpretation Code Description Data [facility] rce(s) Supporting Document(s) SPECIMEN DESCRIPTION [facility] STAPH SCREEN RESULTS (ONEGSA) [facility] COMMENT Lab [facility] GENE TO DETECT STAPH AUREUS. (2) RT-P CR WAS PERFORMED FOR THE mecA AND [employer] GENES TO DETECT METHICILLIN RESISTANCE IN STAPH AUREUS. ID Date Data Source [id number] 09/07/2019 08:21:49 PM EST [facility] Name Value Range Interpretation Code Description Data [facility] rce(s) Supporting Document(s) PT 10.3 s (9.2-11.9) [facility] INR 1.00 [facility] SUGGESTED THERAPEUTIC RANGES USING INR F ORSTABILIZED ANTICOAGULATED PATIENTS:STANDARD DOSE THERAPY INR 2.0-3.0 DVT, PE, PREVENT DVT OR EMBOLISMHIGH DOSE THERAPY INR 2.5-3.5 PREVENT EMBOLISM FROM MECHANICAL HEART VALVE ID Date Data Source [id number] 09/07/2019 08:16:18 PM EST [facility] Name Value Range Interpretation Code Description Data Suzette rce(s) Supporting Document(s) SODIUM 144 mmol/L (136-145) [facility] POTASSIUM 4.9 mmol/L (3.6-5.2) [facility] CHLORIDE 111 mmol/L (100-108) H [facility] CO2 25 mmol/L (22-31) [facility] ANION GAP 8 mmol/L (7-16) [facility] UREA NITROGEN 35 mg/dL (7-24) H [facility] CREATININE 1.65 mg/dL (0.80-1.30) H [facility] BUN/CREAT RATIO 21.2 RATIO (10.0-20.0) H [facility] GLUCOSE 84 mg/dL (70-99) [facility] CALCIUM 8.8 mg/dL (8.4-10.2) [facility] TOTAL PROTEIN 7.4 g/dL (6.4-8.2) [facility] ALBUMIN 2.8 g/dL (3.2-4.5) L [facility] GLOBULIN 4.6 g/dL (2.7-4.3) H [facility] ALB/GLOB RATIO 0.6 RATIO [facility] ALKALINE PHOSPHATASE 79 U/L (45-117) [facility] BILIRUBIN,TOTAL 0.6 mg/dL (0.0-1.0) [facility] [place] AST (SGOT) 23 U/L (11-39) [facility] ALT (SGPT) 23 U/L (12-78) [facility] GFR 42 ml/min/1.73m2 (>59) L [facility] GFR ( AMER) 51 ml/min/1.73m2 (>59) L [facility] GFR INTERPRETATION [facility] --NORMAL KIDNEY FUNCTION OR MILD DISEASE - GFR >OR= 60CHRONIC KIDNEY DISEASE - GFR 15 - 59RENAL FAILURE - GFR <15 Est. GFR calculation based on the MDRDstudy equation, which assumes a steadystate for creatinine. Est. GFR should notbe used for medication dosing. ID Date Data Source [id number] 09/07/2019 07:55:54 PM EST [facility] Name Value Range Interpretation Code Description Data Suzette rce(s) Supporting Document(s) WBC 9.0 10*3/uL (4.1-11.0) [facility] [place] [facility] [place] RBC 3.98 10*6/uL (4.60-6.10) L [facility] HGB 11.9 g/dL (13.5-18.0) L [facility] HCT 35.9 % (41.0-53.0) L [facility] MCV 90.2 fL (80.0-95.0) [facility] MCH 29.8 pg (27.0-32.0) [facility] MCHC 33.0 g/dL (32.0-36.0) [facility] RDW 15.7 % (10.5-14.5) H [facility] PLT 270 10*3/uL (150-450) [facility] MPV 7.8 fL (7.1-10.7) [facility] ID Date Data Source [id number] 08/24/2019 09:47:43 AM EST [facility] NT INFORMATIONPatient MRN Name Date of Age Gend*PT [id number] Enoc Wayne 1955 64 years M IPPT Location Admission Date/Time Visit ID Attending [id number] 08/08/19604 --- --- EPI ID CSN Admitting Pr ovider [id number] Braxton Pepper MD([id number]) [place] [address] OPERATIVE REPORT OPNAME: ENOC WAYNE#: [id number] #: [id number] ADMISSION DATE: 08/08/2019DOB: 1955 SEX: M PT TYPE: I SURACCT #: [id number] CARE PHYSICIAN: JESSIE GTZ OF OPERATION: 08/08/2019 PREOPERATIVE DIAGNOSES:1. Abdominal aortic aneurysm.2. Left internal iliac artery large aneurysm.3. Obesity.OPERATIVE PROCEDURE:1. Repair of abdominal aortic aneurysm with an Endurant graft.2. Plugging of the left internal iliac artery.SURGEONS:Dr. Braxton Fenton SURGEON:Dr. Setwart MederosanASSISTANT:KAYLA JimenezNESTHESIA:General endotracheal.DESCRIPTION OF PROCEDURE:This is an [...] was about 250 mL.SHERRIE SALGADO/KANIKA Job #: [id number] DOC #: [id number]: STEWART GREEN MD Name Value Range Interpretation Code Description Data [facility]ette rce(s) Supporting Document(s) ID Date Data Source [id number] 08/12/2019 07:26:05 AM EST [facility] NT INFORMATIONPatient MRN Name Date of Age Gend*PT [id number] Enoc Wayne 1955 64 years M IPPT Location Admission Date/Time Visit ID Attending [id number] 08/08/19 0605 --- --- EPI ID CSN Admitting Pr ovider [id number] Braxton Pepper MD([id number]) Attestation signed by Stewart Green MD at 08/12/2019 7:26 AMI agree with the history, physical and medical decision makingSignature: Stewart Green MDDate: August 12, 2019Time: 7:25 AM Surgical Discharge SummaryEnoc AcevedoPadmaN: [id number] date: 08/08/2019Admitting Physician: LEON Salgadoischarge date and time:Discharge Orders Placed(From admission, onward) Start Ordered 08/09/19 1019 Discharge patient Once, Status: CanceledComments: to transport, she will wait in [place].Expected Discharge Date: 08/09/19Expected Discharge Time: 12:00Discharge Disposition: [...] Get Your MedicationsThese medications were sent to [id number] - [place], [place] - [address] [place] [address] HYDROcodone-acetaminophen 5-325 MG per tabletInformation about where [...] at 0915. He will askabout flying to [facility] to attend a ceremony for his [id number]. He isanticipating a LLE bypass operation and [...] a former smoker [facility] ([facility]) Alcohol intake 09/15/2019 12:00:00 AM EST Not Currently completed Cigarette pack-years 09/15/2019 12:00:00 AM EST UNK completed Cigarettes smoked current (pack per day) - Reported 09/15/19 12:00:00 AM EST UNK completed [facility] Smoking 09/15/2019 12:00:00 AM EST Former smoker completed Former smoker Alcohol intake 09/07/2019 12:00:00 AM EST Not Currently completed Cigarette pack-years 09/07/2019 12:00:00 AM EST UNK completed Cigarettes smoked current (pack per day) - Reported 09/07/20 12:00:00 AM EST UNK completed [facility] Smoking 09/07/2019 12:00:00 AM EST Former smoker completed Former smoker Vital Signs ID Date Data Source UNK Name Value Range Interpretation Code Description Data Source(s) Body mass index (BMI) [Ratio] 41.0 kg/m2 41.0 k g/m2 [facility] ([facility]) Oxygen saturation in Arterial blood by Pulse oximetry 96 % 96 % [facility] ([facility]) Body weight 282.00 [lb_av] 282.00 [lb_av] [facility] T ([facility]) Body height 69.5 [in_i] 69.5 [in_i] [facility] ([facility]) 5'9.50" Heart rate 71 /min 71 /min [facility] ([facility]) Diastolic blood pressure 78 mm[Hg] 78 mm[Hg] [facility] ([facility]) Systolic blood pressure 122 mm[Hg] 122 mm[Hg] M ED[facility] ([facility]) Body mass index (BMI) [Ratio] 41.3 kg/m2 41.3 k g/m2 [facility] ([facility]) Body weight 127.008 kg 127.008 kg [facility] ([facility]) Body weight 280.00 [lb_av] 280.00 [lb_av] [facility] T ([facility]) Body height 69 [in_i] 69 [in_i] [facility] [...] [Ratio] 41.2 kg/m2 41.2 k g/m2 [facility] ([facility]) Oxygen saturation in Arterial blood by Pulse oximetry 98 % 98 % [facility] ([facility]) RM Air Body weight 283.00 [lb_av] 283.00 [lb_av] [facility] T ([facility]) Body height 69.5 [in_i] 69.5 [in_i] [facility] ([facility]) 5'9.50" Heart rate 82 /min 82 /min [facility] ([facility]) Diastolic blood pressure 80 mm[Hg] 80 mm[Hg] [facility] ([facility]) Systolic blood pressure 124 mm[Hg] 124 [...] [facility]) Heart rate 63 /min 63 /min [facility] Diastolic blood pressure 81 mm[Hg] 81 mm[Hg] Systolic blood pressure 161 mm[Hg] 161 mm[Hg] [facility] Oxygen saturation in Arterial blood by Pulse oximetry 99 % 99 % Respiratory rate 18 /min 18 /min [facility] Body temperature 36.67 Maricel 36.67 Maricel [facility] Body mass index (BMI) [Ratio] 40.61 kg/m2 40.61 kg/m2 Body weight 124.739 kg 124.739 kg Body height 175.3 cm 175.3 cm Oxygen saturation in Arterial blood by Pulse oximetry 97 % 97 % Body mass index (BMI) [Ratio] 40.61 kg/m2 40.61 kg/m2 Body weight 124.739 kg 124.739 kg Body height 175.3 cm 175.3 cm Heart rate 59 /min 59 /min [facility] Diastolic blood pressure 68 mm[Hg] 68 mm[Hg] Systolic blood pressure 115 mm[Hg] 115 mm[Hg] [facility] Patient Treatment Plan of Care Planned Activity Planned Date Details Description Data Source (s) Acetaminophen 325 MG / Hydrocodone Bitartrate 5 MG Ora l Tablet 09/15/2019 12:00:00 AM [facility] chlorhexidine gluconate 40 MG/ML Medicated Liquid Soap 08/09/2019 12:00:00 AM [facility] Acetaminophen 325 MG / Hydrocodone Bitartrate 5 MG Ora l Tablet 08/09/2019 12:00:00 AM [facility] Acetaminophen 325 MG Oral Tablet
[2020-10-11 04:42] LABS: RSV AMPLIFICATION NEGATIVE (NEGATIVE)
[2020-10-11] MEDS ORDERED: NS 3,000 ML in IV 1 EA IV ONE (05:00)
[2020-10-11] MEDS ORDERED: PIPERACILLIN/TAZOBACTAM SOD 2.25 GM in D5W MINI-BAG PLUS 50 ML IV ONE (05:00)
--- NOTE | 2020-10-11 05:56 | REPVR ---
PROCEDURE INFORMATION: Exam: US Abdomen, Limited; Right Upper Quadrant Exam date and time: 10/11/2020 5:22 AM Age: 65 years old Clinical indication: Abnormal findings; Abnormal lab test; Abnormal function test of other organs/systems; Prior surgery; Surgery date: 6+ months; Surgery type: S/P RT nephrectomy d/t renal cancer in 2014; Additional info: Elevated liver enzymes TECHNIQUE: Imaging protocol: US abdomen. Real time ultrasound with image documentation. Limited exam focused on the right upper quadrant. COMPARISON: GALLBLADDER US 12/10/2018 9:40 AM FINDINGS: Liver: Limited visualization of the liver demonstrates echogenic parenchyma but with no focal mass identified. Hypoechogenicity seen in the gallbladder fossa. Gallbladder: The gallbladder is significantly distended measuring 9.7 x 5.6 x 5.8 cm containing numerous gallstones and sludge. No sonographic Sr's sign was elicited. Common bile duct: The CBD is not visualized is obscured by bowel gas. Pancreas: The pancreas is obscured by bowel gas. Right kidney: Not imaged on this exam. IMPRESSION: 1. Nearly hydropic gallbladder filled with stones and sludge but with no wall thickening, pericholecystic fluid or sonographic Sr's sign. Findings are equivocal for acute cholecystitis. Correlate with symptoms and LFTs. If indicated HIDA scan may be obtained for further evaluation. 2. Obscured pancreas and CBD. If there is abnormal bilirubin and clinical suspicion of choledocholithiasis, MRI with MRCP may be considered for further evaluation. 3. Fatty infiltration of the liver with focal fatty sparing in the gallbladder fossa. Electronically signed by: Raheel Armas On 10/11/2020 05:55:31 AM
--- NOTE | 2020-10-11 07:07 | ECGEPIP ---
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
[2020-10-11 09:56] VITALS: BP 133/74
== END 2020-10-11 10:02 | disposition short-term general hospital (02) ==
LOC: M ED 00:34
DX: K80.30 Calculus of bile duct with cholangitis, unspecified, without obstruction (principal); K80.20 Calculus of gallbladder without cholecystitis without obstruction; R94.31 Abnormal electrocardiogram [ECG] [EKG]; R06.02 Shortness of breath; K76.0 Fatty (change of) liver, not elsewhere classified; I51.7 Cardiomegaly; Z90.5 Acquired absence of kidney; Z95.828 Presence of other vascular implants and grafts; Z79.899 Other long term (current) drug therapy
CPT/HCPCS: 36600; 71045; 71250; 74176; 76705; 80048; 80076; 81001; 82550; 82553; 82803; 83605; 83690; 83880; 84484; 85025; 85610; 87040; 87076; 87631; 93005; 93041; 94640; 94760; 96361; 96374; 96375; 99285; J1100; J2543

== ENCOUNTER → 2020-10-17 | Outpatient (REF) | payer OTHER ==
[~2020-10-17] MED LIST changes: +FERR32TA PO; +IRON65TA2 PO; +PANT-23 PO; +PATIENT COMMENT; +SUCR1TAB56 PO
== END ==
LOC: M LAB REF 16:20
PROVIDERS: ATTEND Internal Medicine
DX: I12.9 Hypertensive chronic kidney disease with stage 1 through stage 4 chronic kidney disease, or unspecified chronic kidney disease (principal)

== ENCOUNTER → 2021-01-03 | Outpatient (CLI) | payer OTHER | LOC: M LABSMTC 10:05 | PROVIDERS: ATTEND Anesthesiology | DX: Z01.812 Encounter for preprocedural laboratory examination (principal) ==

== ENCOUNTER 2021-01-08 13:35 | Day surgery (SDC) | payer OTHER ==
[~2021-01-08] VITALS: Ht 175.3 cm; Wt 125.6 kg
[~2021-01-08 13:35] MED LIST changes: +ACETAMINOPHEN 1000MG 100ML IV BTL (OFIRMEV) (J0131 PER 10MG) As Ordered ONE; +AMPICILLIN SOD/SULBACTAM SOD 3 GM in D5W MINI-BAG PLUS 100 ML IV ONE; +CelecoXIB 400 MG CAP PO ONE; +LIDOCAINE 2% 100MG/5ML SDV (FOR ANES.) As Ordered ONE; +LR 1,000 ML IV ONE; +MIDAZOLAM INJ 2MG/2ML VIAL (J2250 PER 1MG) As Ordered ONE; +ONDANSETRON 4MG/2ML VIAL As Ordered ONE; +PHENYLephrine 500MCG 5ML (100MCG/ML) SYRINGE As Ordered ONE; +ROCURONIUM BROMIDE 50 MG/5 ML VIAL As Ordered ONE; +SUGAMMADEX SODIUM 500 MG/5 ML VIAL (BRIDION) As Ordered ONE; +dexameTHASONE 4 MG/ML 1ML VIAL (J1100 PER 1MG) As Ordered ONE; +ePHEDrine SULFATE 25 MG/5 ML(5MG/ML) SYRINGE As Ordered ONE; +fentaNYL 250 MCG/5 ML INJECTION (J3010) As Ordered ONE; +metroNIDAZOLE 500 MG in IV 1 EA IV ONE; +propofoL 200 MG/20 ML VIAL As Ordered ONE
[2021-01-08] MEDS ORDERED: GLYCOPYRROLATE INJ 0.2 MG/ML 2 ML VIAL As Ordered ONE (13:37)
[2021-01-08] MEDS ORDERED: BUPIVACAINE HCL 0.25% 30ML VIAL As Ordered ONE (15:49)
[2021-01-08] MEDS ORDERED: LIDOCAINE 1% SDV 30ML VIAL As Ordered ONE (15:49)
[2021-01-08] MEDS ORDERED: ROCURONIUM BROMIDE 50 MG/5 ML VIAL As Ordered ONE (16:02)
[2021-01-08] MEDS ORDERED: dexameTHASONE 4 MG/ML 1ML VIAL (J1100 PER 1MG) As Ordered ONE (16:02)
[2021-01-08] MEDS ORDERED: LR 1,000 ML IV SCH (18:45)
[2021-01-08] MEDS ORDERED: oxyCODONE 5MG TAB PO PRN (18:45)
[2021-01-08] MEDS ORDERED: ONDANSETRON 4MG/2ML VIAL IV PRN (18:45)
[2021-01-08] MEDS ORDERED: METOCLOPRAMIDE INJ 10MG/2ML VIAL (J2765 PER 1) IV PRN (18:45)
[2021-01-08] MEDS ORDERED: fentaNYL 100 MCG/2 ML INJECTION (J3010) IV PRN (18:45)
[2021-01-08] MEDS ORDERED: PERCOCET 5MG/325MG TAB PO PRN ×2 (18:50)
[2021-01-08] MEDS ORDERED: KETOROLAC 30 MG/ML 1ML VIAL IV PRN (18:50)
[2021-01-08] MEDS: HYDROMORPHONE HCL 0.5 MG/ 0.5 ML SYRINGE (J1170 PER 1) IV PRN ×2 (19:01→19:13)
[2021-01-08 20:45] VITALS: BP 167/90
--- NOTE | 2021-01-09 07:25 | ROOPDOC ---
[facility] Report Of Operation Report of Operation DATE OF PROCEDURE: 01/10/21 PREPROCEDURE DIAGNOSES: cholelithiasis, history of cholangitis, cbd stone. POSTPROCEDURE DIAGNOSES: cholelithiasis, chronic cholecystitis. PROCEDURE: Robotic assisted Laparoscopic cholecystectomy with ICG for biliary tract identification bilateral transversus abdominis plane block (1% lidocaine with 1/4% Marcaine 30 mLs each side). SURGEON: Andrea Edmondson MD MACHINED [employer]S METAL SPRAYER: ANESTHESIA: General Endotracheal Anesthesida. ESTIMATED BLOOD LOSS: Approximately 20 mL. COMPLICATIONS: none. REMARKS: 65 M with multiple comorbidities, morbidly obese with prior history of sepsis, cholangitis back in September admitted and cared for at [facility]. He is brought in today for Laparoscopic Cholecystectomy. PROCEDURE NOTE: markedly enlarged, distended gallbladder, relatively thin wall but encased by omentum, variant ductal anatomy with a separate ?(right)hepatic duct coming off from the CBD and giving off a short cystic duct. DESCRIPTION OF PROCEDURE: ANDREA EDMONDSON MD Jan 09, 2021 07:25
== END 2021-01-08 20:45 | disposition home or self-care (01) ==
LOC: M SDC 13:35
PROVIDERS: ATTEND Surgery
DX: K80.20 Calculus of gallbladder without cholecystitis without obstruction (principal); I12.9 Hypertensive chronic kidney disease with stage 1 through stage 4 chronic kidney disease, or unspecified chronic kidney disease; I73.9 Peripheral vascular disease, unspecified; I25.10 Atherosclerotic heart disease of native coronary artery without angina pectoris; R51.9 Headache, unspecified; D50.9 Iron deficiency anemia, unspecified; N18.30 Chronic kidney disease, stage 3 unspecified; K21.9 Gastro-esophageal reflux disease without esophagitis; E66.01 Morbid (severe) obesity due to excess calories; Z98.61 Coronary angioplasty status; Z87.891 Personal history of nicotine dependence; Z79.82 Long term (current) use of aspirin; Z79.899 Other long term (current) drug therapy; Z86.718 Personal history of other venous thrombosis and embolism
CPT/HCPCS: 47563; 88304; J0131; J1100; J1170; J2250; J2370; J2405; J3010; S2900

== ENCOUNTER 2021-03-09 10:41 | Inpatient (IN) | payer OTHER ==
[~2021-03-09] VITALS: Ht 175.3 cm; Wt 132.3 kg
[~2021-03-09 10:41] MED LIST changes: -ACETAMINOPHEN 1000MG 100ML IV BTL (OFIRMEV) (J0131 PER 10MG) As Ordered ONE; -AMPICILLIN SOD/SULBACTAM SOD 3 GM in D5W MINI-BAG PLUS 100 ML IV ONE; -CelecoXIB 400 MG CAP PO ONE; -LIDOCAINE 2% 100MG/5ML SDV (FOR ANES.) As Ordered ONE; -LR 1,000 ML IV ONE; -MIDAZOLAM INJ 2MG/2ML VIAL (J2250 PER 1MG) As Ordered ONE; +OMEP40CA4 PO; -OMEP40CA97 PO; -ONDANSETRON 4MG/2ML VIAL As Ordered ONE; -PHENYLephrine 500MCG 5ML (100MCG/ML) SYRINGE As Ordered ONE; -ROCURONIUM BROMIDE 50 MG/5 ML VIAL As Ordered ONE; -SUGAMMADEX SODIUM 500 MG/5 ML VIAL (BRIDION) As Ordered ONE; -dexameTHASONE 4 MG/ML 1ML VIAL (J1100 PER 1MG) As Ordered ONE; -ePHEDrine SULFATE 25 MG/5 ML(5MG/ML) SYRINGE As Ordered ONE; -fentaNYL 250 MCG/5 ML INJECTION (J3010) As Ordered ONE; -metroNIDAZOLE 500 MG in IV 1 EA IV ONE; -propofoL 200 MG/20 ML VIAL As Ordered ONE
--- NOTE | 2021-03-09 11:30 | REP ---
INDICATION: DYSPNEA/COUGH COMPARISON: 10/11/2020 TECHNIQUE: Portable AP view of the chest FINDINGS: The mediastinum and cardiac silhouette are stable and within normal limits for portable technique. The lung whitfield demonstrate stable chronic changes without acute consolidation, effusion, or pneumothorax. Skeletal structures are intact. IMPRESSION: Stable chronic changes. No acute cardiopulmonary process appreciated. <Electronically signed by Rodolfo Oshea > 03/09/21 [id number]
[2021-03-09 11:42] LABS: BASO % 0.3 % (0.0-1.0); EOS % 0.1 % (0.0-3.0); HEMATOCRIT 46.1 % (42.0-52.0); LYMPH # 0.9 10^3/uL (1.5-5.0); LYMPH % 5.9 % (24.0-44.0); MEAN CORPUSCULAR HEMOGLOBIN 29.6 pg (27.0-33.0); MEAN CORPUSCULAR HGB CONC 32.5 g/dl (32.0-36.5); MEAN CORPUSCULAR VOLUME 91.1 fl (80.0-96.0); MONO % 10.1 % (2.0-8.0); PLATELET COUNT, AUTOMATED 182 10^3/uL (150-450); RED BLOOD COUNT 5.06 10^6/uL (4.30-6.10)
[2021-03-09 11:50] LABS: BILIRUBIN,DIRECT 0.4 MG/DL (0.0-0.2); BILIRUBIN,TOTAL 1.4 MG/DL (0.2-1.0); CALCIUM LEVEL 7.9 MG/DL (8.8-10.2); CREATININE FOR GFR 2.06 MG/DL (0.70-1.30); GLOMERULAR FILTRATION RATE 34.9 (>49); POTASSIUM SERUM 3.9 MEQ/L (3.5-5.1); TOTAL PROTEIN 7.4 GM/DL (6.4-8.2)
[2021-03-09 12:10] LABS: WHITE BLOOD COUNT 15.6 10^3/uL (4.0-10.0)
[2021-03-09 12:11] LABS: MONO # 1.6 10^3/uL (0.0-0.8)
[2021-03-09] MEDS ORDERED: ACETAMINOPHEN TAB 650MG DOSE (2X325MG) PO ONE (12:30)
--- NOTE | 2021-03-09 14:19 | REP ---
INDICATION: FUO COMPARISON: 10/11/2020 TECHNIQUE: Axial noncontrast images from the thoracic inlet to the upper abdomen with coronal and sagittal reformations. This CT examination was performed using the following dose reduction techniques: Automated exposure control, adjustment of mA and/or kv according to the patient's size, and use of iterative reconstruction technique. FINDINGS: Lung whitfield are well aerated and essentially clear. Minimal chronic appearing changes at the bilateral bases are again noted. No consolidation. No effusion. No pneumothorax. Tracheobronchial tree is patent. No adenopathy. Atherosclerotic changes to the thoracic and coronary noted without aortic aneurysm or cardiomegaly. No pericardial effusion. Thyroid gland appears normal. Skeletal structures are intact. IMPRESSION: No acute mediastinal or pleuroparenchymal process appreciated. <Electronically signed by Rodolfo Oshea > 03/09/21 [id number]
--- NOTE | 2021-03-09 14:35 | REP ---
INDICATION: FUO COMPARISON: Multiple examinations dating through 2011 TECHNIQUE: Axial noncontrast images from the lung bases to the pubic symphysis with coronal and sagittal reformations. This CT examination was performed using the following dose reduction techniques: Automated exposure control, adjustment of mA and/or kv according to the patient's size, and use of iterative reconstruction technique. FINDINGS: Lung bases are clear. Visualized heart and pericardium normal. Liver again demonstrates diffuse fatty infiltration with elements of focal fatty sparing. Spleen, pancreas, and left adrenal gland are normal. Patient appears to be status post right nephrectomy with essentially normal right renal fossa. A nearly isodense 3 cm rounded lesion identified along the posterior midpole region of the left kidney which has been relatively stable in size and density through multiple prior examinations including labeled as non hypermetabolic presumed complex cyst on prior PET-CT has gradually increased in size when compared through 2014. While this may in fact represent a enlarging complex proteinaceous cyst, transformation to more significant pathology cannot be excluded. The enteric system is unremarkable and without obstruction or acute inflammatory process. Scattered sigmoid diverticula noted without acute diverticulitis. Pelvis demonstrates normal bladder and findings to suggest prior prostate surgery. No ascites. No free air. No adenopathy. No focal inflammatory stranding. Aorto bilateral iliac stenting for aneurysmal dilatation including aneurysmal dilatation to the iliac arteries remains relatively stable compared with 10/11/2020. Osseous structures demonstrate degenerative changes without acute process. IMPRESSION: 1. Essentially chronic relatively stable findings as described above including hepatosteatosis and aorto bi iliac stenting for aneurysm. 2. Presumed complex rounded lesion in the left kidney appears to have gradually increased in size over time. Most recent prior PET-CT demonstrated no hypermetabolic activity. However, follow-up pre and postcontrast CT of the abdomen and or ultrasound should be considered to confirm benignity. <Electronically signed by Rodolfo Oshea > 03/09/21 [id number]
[2021-03-09] MEDS ORDERED: cefTRIAXone SOD 1 GM in D5W MINI-BAG PLUS 50 ML IV ONE (14:45)
[2021-03-09] MEDS ORDERED: PERCOCET 5MG/325MG TAB PO PRN ×2 (15:25)
[2021-03-09] MEDS ORDERED: ONDANSETRON 4MG/2ML VIAL IV PRN (15:25)
[2021-03-09] MEDS ORDERED: MORPHINE 4 MG/ML 1ML VIAL/SYRINGE (J2270) IV PRN (15:25)
[2021-03-09] MEDS ORDERED: ACETAMINOPHEN TAB 650MG DOSE (2X325MG) PO PRN (15:25)
[2021-03-09] MEDS ORDERED: GI COCKTAIL 50ML BTL(HYOSCYAMINE/MAALOX/LIDOCAINE VISCOUS)(1:3:1) PO PRN (15:30)
[2021-03-09] MEDS ORDERED: NS 1,000 ML IV ONE (16:00)
--- NOTE | 2021-03-09 16:52 | HPEPDOC ---
[facility] Medical History & Physical Date of Admission Mar 09, 2021 Date of Service: Mar 09, 2021 History and Physical addendum to h&p: 65 M w h/o renal cell ca s/p right nephrectomy, chronic cholecystitis, cholangitis s/p robotic assisted lap siria 12/2020, s/p perforated duodenal ulcers on chronic protonix and carafate c/o feeling hot/cold,"something's wrong," epigastric pain since yesterday, found to have a uti/acute left pyelonephritis. acute left sided pyelonephritis sepsis due to acute pyelonhritis acute on ckd 3 h/o renal cell ca s/p right nephrectomy h/o chronic cholecystitis/cholangitis s/p lap siria 12/2020 h/o perforated duodenum h/o hepatobiliary stent h/o LE aneurysm surgeries plan: iv ceftriaxone await urine cx and de-escalate abx strict i/o urine output ivfluids avoid nsaids, renally dose meds. monitor bili job#[id number] Vital Signs Vital Signs Date Time Temp Pulse Resp B/P (MAP) Pulse Ox O2 Delivery O2 Flow Rate FiO2 03/09/21 16:30 77 96 Room Air 03/09/21 16:15 147/103 (118) 03/09/21 15:27 101.8 03/09/21 15:15 18 Laboratory Data Labs 24H Laboratory Tests 2 03/09/21 11:09: Immature Granulocyte % (Auto) 0.6, Neutrophils (%) (Auto) 83.0H, Lymphocytes (%) (Auto) 5.9L, Monocytes (%) (Auto) 10.1H, Eosinophils (%) (Auto) 0.1, Basophils (%) (Auto) 0.3, Neutrophils # (Auto) 13.0H, Lymphocytes # (Auto) 0.9L, Monocytes # (Auto) 1.6H, Eosinophils # (Auto) 0.0, Basophils # (Auto) 0.0, Nucleated Red Blood Cells % (auto) 0.0, POC Troponin I (Misc) 0.04, Anion Gap 10, Glomerular Filtration Rate 34.9L, Calcium Level 7.9L, Total Bilirubin 1.4H, Direct Bilirubin 0.4H, Aspartate Amino Transf (AST/SGOT) 42H, Alanine Aminotransferase (ALT/SGPT) 42, Alkaline Phosphatase 79, Total Protein 7.4, Albumin 3.0L, Albumin/Globulin Ratio 0.7, Lipase 119 03/09/21 12:52: Lactic Acid Level 1.2 03/09/21 14:12: Urine Color YELLOW, Urine Appearance CLOUDYH, Urine pH 5.0, Urine Specific [place] 1.018, Urine Protein 3+H, Urine Glucose (UA) NEGATIVE, Urine Ketones NEGATIVE, Urine Blood 2+H, Urine Nitrite NEGATIVE, Urine Bilirubin NEGATIVE, Urine Urobilinogen 0.2, Urine Leukocyte Esterase TRACEH, Urine WBC (Auto) 66H, Urine RBC (Auto) 15H, Urine Hyaline Casts (Auto) 0, Urine Bacteria (Auto) 3+H, Urine Squamous Epithelial Cells 1, Urine Mucus (Auto) SMALL, Urine Sperm (Auto) CBC/BMP Laboratory Tests 03/09/21 11:09 Microbiology Microbiology 03/09/21 Urine Culture, Received Pending 03/09/21 Blood Culture, Received Pending 03/09/21 Blood Culture, Received Pending 03/09/21 Respiratory Virus Panel (PCR) (DOUGLAS) - Final, Complete Home Medications Scheduled Amlodipine Besylate (Amlodipine Besylate) 5 Mg Tablet, 5 MG PO DAILY Bisoprolol Fumarate (Bisoprolol Fumarate) 5 Mg Tab, 5 MG PO DAILY Ferrous Gluconate (Ferrous Gluconate) 324 Mg Tablet, 324 MG PO DAILY Pantoprazole Sodium (Pantoprazole Sodium) 40 Mg Tablet.dr, 40 MG PO DAILY Sucralfate (Sucralfate) 1 Gm Tablet, 1 GM PO AC Allergies Coded Allergies: No Known Allergies (Verified , 03/21/09) A-FIB/CHADSVASC A-FIB History Current/History of A-Fib/PAF?: No Current PO Anticoag Therapy: No Age/Risk Factor Scoring CHADSVASC: CHADSVASC Response (Comments) Value Age Risk Factor Age < 65 years old 0 Gender Risk Factor Female 1 Hx of CHF No 0 Hx of HTN No 0 Hx of Stroke/TIA/or VTE No 0 Hx of Diabetes No 0 Hx of Vascular Disease No 0 Total 1 Treatment Treatment ordered: NONE LADONNA NIX MD Mar 09, 2021 16:46
[2021-03-09 17:00] VITALS: BP 124/70
[2021-03-09] MEDS: SUCRALFATE 1 GM TAB PO SCH ×2 (17:30→20:57)
[2021-03-09] MEDS: NS 1,000 ML IV SCH (18:27)
[2021-03-09 18:42] LABS: CK-MB VALUE MASS < 1.0 NG/ML (<3.6); CPK CREATINE PHOSPHOKINASE 162 U/L (39-308); MB/CK RELATIVE INDEX 0.62 (< OR =4); TROPONIN I < 0.02 NG/ML (< 0.10)
--- NOTE | 2021-03-09 18:48 | HPE ---
HISTORY AND PHYSICAL DATE OF ADMISSION: 03/09/2021 CHIEF COMPLAINT: "Something is wrong. I felt hot and cold with nausea." HISTORY OF PRESENT ILLNESS: This is a 65-year-old male with history of renal cell CA, status post right nephrectomy, hepatosteatosis, aortoiliac stenting for aneurysm, cholangitis, cholecystitis, lower extremity aneurysm, status post multiple surgeries, status post robotic-assisted laparoscopic cholecystectomy with ICG for biliary tract identification with bilateral transverse abdominis plane block on 01/10/2021, presents to the emergency room with a two day history of feeling hot and cold chills and not feeling well yesterday. The patient had been having chest discomfort across the substernal area on and off all day yesterday which no prior episodes which he was just sitting not able to lay down with some nausea but denied any vomiting, diarrhea, fever, chills or shortness of breath. He took some Pepto-Bismol, two doses with no change. He has had no change in appetite, weight loss. He has gained about 6 lb from the last time he has seen Dr. Xavier in the office. The patient presented to the emergency room for further evaluation. Denies any nonsteroidal anti-inflammatory usage, urgency, frequency, flank pain but admitted to chills and subjective fevers at home. In the ER, he was found to be febrile, 101.8 with a white count of 15.6, UA not cloudy with a trace leukocyte esterase, 15 WBCs and 3+ bacteria. Troponin is negative, no acute ST elevation on EKG. CT of chest showed no acute mediastinal or pleural parenchymal process. CT, abdomen and pelvis shows chronic changes, a 3 cm rounded lesion along the posterior mid-pole of the left kidney, has been stable in size and density. Complex cyst on prior PET CT had increased in size compared to 2015. He is status post right nephrectomy with essentially normal right renal fossa. Hospitalist was asked to admit the patient for a UTI and acute left-sided pyelonephritis. PAST MEDICAL HISTORY: 1. Chronic cholecystitis, cholelithiasis, status post robotic-assisted laparoscopic cholecystectomy, 01/10/2021. 2. Renal cell CA, status post right nephrectomy. 3. Chronic urine retention. 4. Lower extremity aneurysm, status post aorta-biliary stent. PAST SURGICAL HISTORY: 1. Robotic-assisted laparoscopic cholecystectomy, 01/10/2021. 2. Aorta-biliary stent placement for lower extremity aneurysm. 3. Right nephrectomy. 4. Abdominal hernia repair. ALLERGIES: No known drug allergies. HOME MEDICATIONS: 1. Norvasc 5 mg daily. 2. Bisoprolol 5 daily. 3. Ferrous gluconate 324 daily. 4. Protonix 40 daily. 5. Carafate q.a.c. 1 gm. SOCIAL HISTORY: Previous heavy drinker, social alcohol use, now denies alcohol, illicit drug use, retried, FULL CODE. FAMILY HISTORY: Father with prostate cancer. Mother with breast cancer. REVIEW OF SYSTEMS: As per HPI, 12-point system otherwise negative. PHYSICAL EXAMINATION: VITAL SIGNS: Temperature 101.8, pulse 54, respiratory rate 18, blood pressure 135/90, 97% on room air. GENERAL: The patient is awake, alert and oriented to person, place and time. No pallor, icterus, jaundice, no respiratory distress. HEENT: Tongue is midline, no thyromegaly, jugular venous distention, thyromegaly. No carotid bruits, stridor. LUNGS: Clear to auscultation, no wheezing, rales or rhonchi. HEART: S1, S2, sinus rhythm. No murmurs, rubs or gallops. ABDOMEN: Soft, nontender, nondistended. Positive bowel sounds. EXTREMITIES: No cyanosis or clubbing. No pitting edema. Chronic kidney disease changes have been, bilateral lower extremities. No CVA tenderness. LABORATORY DATA: White count 15.6, hemoglobin 15, hematocrit 46, platelet count 182. Sodium 135, potassium 3.9, chloride 104, bicarb 21, BUN 32, creatinine 2.36 with glucose 150. Baseline creatinine is 1.4 to 1.6. glucose of 150, lactic acid 1.2, T bili 1.4, direct bili 0.4, AST 42, ALT 42, alk phos 79. Urinalysis: Cloudy urine, 3+ protein, 2+ blood, trace leukocyte esterase, 66 WBCs, 15 RBCs, 3+ bacteria. Urine culture pending. Two sets of blood culture obtained. Chest x-ray: No acute abnormalities. CT of abdomen and pelvis: Complex cyst, slightly increased in size compared to 2015. 3 cm rounded lesion identified along the posterior pole of the left kidney, right nephrectomy, fatty liver. ASSESSMENT AND PLAN: This is a 65-year-old male with history of renal cell CA, status post right nephrectomy, chronic cholecystitis, cholangitis, status post laparoscopic cholecystectomy, multiple aneurysms with an aortobiliary stent, presents to the emergency room with a two day history of chills and discomfort across the chest, found to have acute pyelonephritis on the left with a fever of 101.8, white count 15,000. IMPRESSION: The patient will be admitted as an inpatient for two midnights for the following acute issues: 1. Sepsis secondary to acute left-sided pyelonephritis in the setting of prior history of renal cell CA, status post nephrectomy and chronic kidney disease, stage 3 at baseline. The patient will be given IV Ceftriaxone, renally dosed, await urine culture results and daily antibiotics accordingly. 2. Lfatj-mu-[id number] renal failure, stage 3 at baseline. Current creatinine is 2.07. Diuretics, NSAIDs will be held. The patient denies any nonsteroidal anti-inflammatory use or diuretics at home. The patient will be restarted on his home blood pressure medications but will avoid ARBs or LESLY inhibitors. He only takes Norvasc 5 mg daily. IV fluid hydration overnight. CT of abdomen and pelvis shows no hydronephrosis but with solitary kidney status post right nephrectomy due to renal cell CA. 3. Obesity. BMI of 43.1. Monitor for respiratory acidosis, altered mental status since the patient will be given p.r.n. Percocet 1-2 tablets and morphine for pain. 4. History of chronic cholecystitis on chronic Protonix and Carafate. Continue with the same. 5. Disposition: The patient wants to leave within 2-3 days as he has plans to go to [place] to visit his granddaughter who will be turning 3. He does not want ot miss her birthday. Therefore, we will give antibiotics this evening, possible discharge in the morning if patient is afebrile. White count decreased and it has resolved. MTDD
--- NOTE | 2021-03-09 21:11 | ECGEPIP ---
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
[2021-03-09 22:00] VITALS: BP 132/68
[2021-03-10 00:40] LABS: CK-MB VALUE MASS 1.1 NG/ML (<3.6); CPK CREATINE PHOSPHOKINASE 193 U/L (39-308); MB/CK RELATIVE INDEX 0.57 (< OR =4); TROPONIN I < 0.02 NG/ML (< 0.10)
[2021-03-10] MEDS: NS 1,000 ML IV SCH (04:47)
[2021-03-10 05:54] LABS: BASO % 0.4 % (0.0-1.0); EOS % 0.1 % (0.0-3.0); HEMATOCRIT 46.3 % (42.0-52.0); HEMOGLOBIN 14.6 g/dl (13.5-17.5); LYMPH # 1.1 10^3/uL (1.5-5.0); LYMPH % 9.4 % (24.0-44.0); MEAN CORPUSCULAR HEMOGLOBIN 29.6 pg (27.0-33.0); MEAN CORPUSCULAR HGB CONC 31.5 g/dl (32.0-36.5); MEAN CORPUSCULAR VOLUME 93.9 fl (80.0-96.0); MONO # 1.3 10^3/uL (0.0-0.8); MONO % 11.7 % (2.0-8.0); NEUTROPHILS # 8.7 10^3/uL (1.5-8.5); PLATELET COUNT, AUTOMATED 164 10^3/uL (150-450); RED BLOOD COUNT 4.93 10^6/uL (4.30-6.10); WHITE BLOOD COUNT 11.2 10^3/uL (4.0-10.0)
[2021-03-10 06:00] VITALS: BP 122/80
[2021-03-10 06:25] LABS: CALCIUM LEVEL 7.9 MG/DL (8.8-10.2); CK-MB VALUE MASS < 1.0 NG/ML (<3.6); CPK CREATINE PHOSPHOKINASE 221 U/L (39-308); CREATININE FOR GFR 2.08 MG/DL (0.70-1.30); GLOMERULAR FILTRATION RATE 34.5 (>49); MB/CK RELATIVE INDEX 0.45 (< OR =4); POTASSIUM SERUM 4.1 MEQ/L (3.5-5.1); TROPONIN I 0.02 NG/ML (< 0.10)
[2021-03-10] MEDS ORDERED: LEVO500T3 PO (08:46)
[2021-03-10] MEDS ORDERED: BACI1CAP PO (08:46)
[2021-03-10] MEDS ORDERED: PANTOPRAZOLE 40MG TAB (PROTONIX) PO SCH (09:00)
[2021-03-10] MEDS ORDERED: cefTRIAXone SOD 1 GM in D5W MINI-BAG PLUS 50 ML IV SCH (09:00)
[2021-03-10] MEDS: SUCRALFATE 1 GM TAB PO SCH (09:03)
[2021-03-10] MEDS ORDERED: LEVO750T13 PO (10:18)
--- NOTE | 2021-03-10 13:03 | CR ---
NEPHROLOGY CONSULTATION DATE: 03/10/2021 REQUESTING PHYSICIAN: Dr. Melinda De La Torre CONSULTING PHYSICIAN: Dr. Kisha Cook REASON FOR CONSULTATION: Management of acute renal failure of solitary functioning kidney. CHIEF COMPLAINT: The patient presented to the hospital yesterday not feeling well, abdominal pain and nausea. HISTORY OF PRESENT ILLNESS: Enoc Wayne is a 65-year-old male with a past medical history of renal cell carcinoma, status post a total right nephrectomy, history of an abdominal aortic aneurysm in the past, status post aortobi-iliac stents in the past. Multiple other comorbidities as mentioned below. He has a solitary functioning left kidney with a baseline creatinine of around 1.6 as reported by the patient and as per previous records from last year. He presented to the hospital yesterday with a 2-day history of having fevers with chills and rigors, decreased appetite, nausea. He felt like he had some abdominal and chest discomfort. He was found to have fever of 101.8 degrees Fahrenheit. He had leukocytosis with a WBC count of 15.6. His urinalysis was cloudy with 3+ bacteria. He was empirically started on IV antibiotics for a possible urinary tract infection. His creatinine on arrival was 2.06. Nephrology Service was called for further help in the management of this patient's acute renal failure superimposed on chronic kidney disease. I saw and evaluated the patient today morning at the bedside. The patient reports that he is feeling much better today. He denies any fever spikes since yesterday morning. His leukocytosis is also getting better. PAST MEDICAL HISTORY: The patient's past medical history is significant for: 1. Chronic kidney disease stage 3. 2. Solitary functioning left kidney baseline creatinine of 1.6. 3. History of renal cell cancer - status post right nephrectomy. 4. History of chronic urinary retention. 5. Abdominal aortic aneurysm status post stent grafts x5. 6. Aortobi-iliac stents. 7. Morbid obesity. 8. Peripheral vascular disease. 9. Hypertension. PAST SURGICAL HISTORY: The patient's past surgical history is significant for: 1. He is status post a robotic assisted laparoscopic cholecystectomy in December 2020. 2. Status post aortobi-iliac stents x5. 3. Status post right sided nephrectomy. 4. Status post abdominal hernia repair. 5. History of bilateral femoral surgery as well. ALLERGIES: No known drug allergies. FAMILY HISTORY: No significant family of end-stage renal disease requiring hemodialysis. SOCIAL HISTORY: The patient is a previous heavy drinker but does not drink anymore. He denies any illicit drug abuse or alcohol abuse. REVIEW OF SYSTEMS: Constitutional: The patient fevers and chills on arrival. He denies any fevers or chills right now. Eyes: He denies any blurry vision, double vision. ENT: He denies any dysphagia or odynophagia. Cardiovascular: He denies any chest pain or palpitations right now. Respiratory: He denies any shortness of breath or cough. Gastrointestinal: He did report nausea and vomiting on arrival but denies any nausea or vomiting right now. Genitourinary: He denies any dysuria or hematuria. Musculoskeletal: He denies any muscle aches and pains. Skin: He denies any rashes or ulcers. SERVICE ORDER DISPATCHER: He denies any strokes or seizures. Hematological/Oncological: He denies any easy bleeding or bruising. All other review of systems is negative. PHYSICAL EXAMINATION: GENERAL APPEARANCE: The patient is awake, alert, oriented x3, obese body habitus, sitting up in the bed. VITAL SIGNS: T-current is 97.8 degrees Fahrenheit, blood pressure 122/80, pulse is 80, respiratory rate of 90, saturating 98% on room air. HEAD AND NECK: Extraocular muscles intact. Pupils are equally round and reactive to light. Mucous membranes are moist. Neck is supple. There is no jugular venous distention. CARDIOVASCULAR: S1, S2, regular rate. EXTREMITIES: No edema of the bilateral lower extremities. RESPIRATORY: Chest is clear to auscultation bilaterally. Bilaterally currently no rales or rhonchi. ABDOMEN: Obese, recent laparoscopic surgical surgery scars are noted. No tenderness is noted. No left sided CVA tenderness. MUSCULOSKELETAL: The patient has surgical scars in both thighs from femoral surgeries in the past. SERVICE ORDER DISPATCHER: No focal deficits. Power is 5/5 in all extremities. LAB REVIEW: CBC showed a WBC count of 15.6 on arrival; it is 11.2 right now. Hemoglobin is 14.6, platelet count 164. Urinalysis on arrival showed it was cloudy with 3+ protein, 2+ blood and trace leukocyte esterase, 3+ bacteria. BMP today showed sodium of 140, potassium 4.1, chloride 104, bicarbonate 22, BUN 33, creatinine is 2.08. Calcium is 7.9. Microbiology - respiratory viral panel is negative. Blood cultures and urine cultures are pending. IMAGING: A CT of the chest was done yesterday which showed no acute pathology. CT abdomen and pelvis was done yesterday which showed chronic stable findings, complex rounded lesion in the left kidney, increased in size. Follow up is recommended. CURRENT INPATIENT MEDICATIONS: The patient's medications include: 1. Rocephin one gram IV q. 12 hourly. 2. He was given one liter normal saline bolus and was getting normal saline at 100 mL an hour. 3. Tylenol p.r.n. 4. Morphine p.r.n. for pain. 5. Zofran p.r.n. for nausea and vomiting. 6. Protonix 40 mg p.o. daily. 7. Carafate one gram p.o. a.c. and h.s. ASSESSMENT AND PLAN: 1. Acute renal failure superimposed on chronic kidney disease it is multifactorial secondary to a combination of dehydration and volume depletion and possible acute pyelonephritis. The patient's creatinine is stable since yesterday. He was advised to hydrate himself well. He is going to follow up with his primary care tomorrow morning. IV fluids can be stopped now. 2. Hyponatremia - The patient had hypovolemic hyponatremia. Sodium is improved from 135 to 140 after IV fluid hydration. 3. Sepsis possibly secondary to acute pyelonephritis. The patient had leukocytosis, fever on arrival. Cultures are pending. He has responded well to the IV Ceftriaxone. Antibiotics can be changed to oral now. 4. Disposition - The patient reports that his sister suddenly after a surgical procedure. He has to attend the today. He is feeling much better. His fever has broken down. He can be switched to oral antibiotics. He can be discharged home. However, if the blood cultures come back positive, he will need to be called back to the hospital because he has stent grafts in the abdominal aorta. Thank you for involving me in the care of this patient. I shall be happy to follow the patient along with you if he stays in the hospital.
--- NOTE | 2021-03-10 13:07 | DSES ---
DISCHARGE SUMMARY DATE OF ADMISSION: 03/09/2021 DATE OF DISCHARGE: 03/10/2021 PRIMARY DISCHARGE DISAGNOSES: 1. Acute left sided pyelonephritis. 2. Sepsis secondary to acute pyelonephritis. 3. Acute on chronic kidney disease stage 3. 4. History of renal cell cancer status post right nephrectomy. 5. History of chronic cholecystitis/cholangitis status post laparoscopic cholecystectomy 12/2020. 6. History of perforated duodenum. 7. History of hepatobiliary stent. 8. History of lower extremity aneurysm surgeries with stent placement. DISCHARGE INSTRUCTIONS: 1. Patient is to have an immediate follow up with his funeral director and embalmer as an outpatient to monitor patient's creatinine. 2. He has a follow up appointment with Dr. Rashmi Xavier in the morning. I sent a message to Dr. Xavier about following up on the blood cultures in light of the patient's history of stents in the lower extremities. If positive patient will need to be treated. HISTORY AND HOSPITAL COURSE: This is a 65-year-old male who was in his usual state of health until 2 days ago when he had the feeling of hot and cold and chills, not feeling well and has discomfort across his sternum on and off all day without prior history. Patient took some Pepto Bismol with no improvement, decided to come to the hospital for evaluation, found to have a fever of 101.8, white count 15,000, UA with 3+ bacteria, 15 WBCs. Troponin was negative. CT chest showed no acute pulmonary process. CT abdomen and pelvis showed a 3 cm rounded lesion along the posterior mid pole of the left kidney. Patient had a creatinine of 2.06 with baseline of 1.5-1.7. Hospitalist admitted him for acute pyelonephritis with acute on chronic renal failure with negative findings for acute coronary syndrome with complaints of chest pain most likely due to GI issues. Patient was kept on Carafate and Protonix, started on I.V. ceftriaxone, I.V. fluids given normal saline 100 mL an hour overnight and Percocet 1-2 tablets as needed for pain. Patient had no significant improvement and his creatinine remained at 2.08. Urine output was 1.125 since midnight, 650 yesterday; input of 2.50 over the past 24 hours. Current weight is 132.3 kg. Patient requested to be discharged home since his sister recently and has a today at 3:00 p.m. He says that he has a follow up appointment with Dr. Rashmi Xavier on 03/11/2021 and can call his funeral director and embalmer for immediate follow up. Patient says "Dr. Xavier gets blood tests before I even see her so it would be okay if I go home." Nephrology was consulted, Dr. Cook, to help manage patient's fluid balance. since the patient is not nauseated, vomiting, is able to take oral intake recommendation was to discharge home on antibiotics as outpatient and to follow up on the blood cultures to make sure that he does not become bacteremic and infect his lower extremity stents. Patient had decreasing white count from an admission of 15 to a discharge of 11.2. He remained afebrile. Urine culture was still pending. Blood cultures still pending. Respiratory panel was negative for Coronavirus. PHYSICAL EXAMINATION ON DISCHARGE: Temperature 97.8, pulse 80, respiratory rate 19, blood pressure 122/80, 98% on room air. General: Patient is awake, alert, oriented to person, place and time, answering questions appropriately. Lungs: Clear to auscultation, no wheezes, rhonchi or rales. Heart: S1 and S2, sinus rhythm. Abdomen: Obese, soft, nontender, nondistended. Extremities: No cyanosis or clubbing. There is 1+ pitting edema on the left where most of his surgeries have been done. Chronic venous stasis changes have been noted. LABORATORY DATA: Laboratory data and microbiology please see the chart. IMAGING STUDIES: Please see the chart. Time spent on discharge: Thirty minutes.
== END 2021-03-10 10:40 | disposition home or self-care (01) | DRG 872 ==
LOC: M ED 10:41 → M ED INP 15:20 → ENRESERV 16:00 → M MSPAV 16:53
PROVIDERS: ADMIT General Practice; ATTEND General Practice
DX: A41.9 Sepsis, unspecified organism (principal); N10 Acute pyelonephritis; N17.9 Acute kidney failure, unspecified; Z68.41 Body mass index [BMI] 40.0-44.9, adult; E87.1 Hypo-osmolality and hyponatremia; N18.30 Chronic kidney disease, stage 3 unspecified; Z85.528 Personal history of other malignant neoplasm of kidney; Z79.899 Other long term (current) drug therapy; E66.9 Obesity, unspecified

== ENCOUNTER → 2021-03-11 | Outpatient (REF) | payer OTHER ==
[~2021-03-11] MED LIST changes: +BACI1CAP PO; +LEVO500T3 PO; +LEVO750T13 PO
== END ==
LOC: M LAB REF 12:20
PROVIDERS: ATTEND Internal Medicine
DX: N10 Acute pyelonephritis (principal)

== ENCOUNTER → 2021-03-20 | Outpatient (REF) | payer OTHER ==
[2021-03-25 08:04] LABS: TOTAL PROTEIN 7.4 GM/DL (6.4-8.2)
== END ==
LOC: M LAB REF 17:17
PROVIDERS: ATTEND Internal Medicine Nephrology
DX: R80.9 Proteinuria, unspecified (principal)

== ENCOUNTER → 2021-04-17 | Outpatient (REF) | payer OTHER ==
[2021-04-17 13:40] LABS: COMPLEMENT C3 144 MG/DL (90-180); COMPLEMENT C4 25 MG/DL (10-40); MAGNESIUM LEVEL 2.2 MG/DL (1.8-2.4)
[2021-04-17 13:53] LABS: HEPATITIS B SURFACE ANTIBODY NEGATIVE (POSITIVE)
[2021-04-17 14:03] LABS: HEPATITIS B SURFACE ANTIGEN NEGATIVE (NEGATIVE)
[2021-04-17 14:31] LABS: HEPATITIS C VIRUS ABY INDEX 0.2 INDEX (<0.8)
[2021-04-17 14:32] LABS: HEPATITIS B CORE ANTIBODY IGM NEGATIVE (NEGATIVE)
== END ==
LOC: M LAB REF 12:57
PROVIDERS: ATTEND Internal Medicine Nephrology
DX: R80.9 Proteinuria, unspecified (principal); N17.8 Other acute kidney failure

== ENCOUNTER → 2021-04-22 | Outpatient (REF) | payer OTHER ==
[2021-04-22 13:53] LABS: CREATININE 24 HOUR, URINE 1847.1 MG/24HR (950-2500); CREATININE, URINE 78.6 MG/DL; TOTAL PROTEIN 24 HOUR URINE 1459.3 MG/24HR (50-150); URINE TOTAL PROTEIN 62.1 MG/DL (0-12)
== END ==
LOC: M LAB REF 12:51
PROVIDERS: ATTEND Internal Medicine Nephrology
DX: R80.9 Proteinuria, unspecified (principal)

== ENCOUNTER → 2021-05-22 | Outpatient (REF) | payer OTHER | LOC: M LAB REF 13:02 | PROVIDERS: ATTEND Internal Medicine Nephrology | DX: N18.31 Chronic kidney disease, stage 3a (principal) ==

== ENCOUNTER → 2021-07-18 | Outpatient (REF) | payer OTHER | LOC: M LAB REF 12:46 | PROVIDERS: ATTEND Internal Medicine Nephrology | DX: N18.31 Chronic kidney disease, stage 3a (principal) ==

== ENCOUNTER → 2021-09-15 | Outpatient (REF) | payer OTHER ==
[2021-09-15 14:35] LABS: TOTAL PROTEIN 24 HOUR URINE 1603.2 MG/24HR (50-150); URINE TOTAL PROTEIN 133.6 MG/DL (0-12)
== END ==
LOC: M LAB REF 13:06
PROVIDERS: ATTEND Nurse Practitioner Family
DX: R80.9 Proteinuria, unspecified (principal)

== ENCOUNTER → 2022-05-08 | Outpatient (CLI) | payer MEDICARE, OTHER ==
[~2022-05-08] MED LIST changes: +ISOVUE-370 76% 100ML VIAL As Ordered ONE; +LEVO1TAB39 PO; +LEVO1TAB40 PO; -LEVO500T3 PO; -LEVO750T13 PO
== END ==
LOC: M RAD 09:45
PROVIDERS: ATTEND Nurse Practitioner Family
DX: N28.1 Cyst of kidney, acquired (principal); Z85.528 Personal history of other malignant neoplasm of kidney; Z90.5 Acquired absence of kidney
CPT/HCPCS: 74178; Q9967

== ENCOUNTER 2022-06-21 17:38 | Emergency (ER) | payer MEDICARE, OTHER ==
[~2022-06-21] VITALS: Ht 175.3 cm; Wt 111.6 kg
[~2022-06-21 17:38] MED LIST changes: -ISOVUE-370 76% 100ML VIAL As Ordered ONE
[2022-06-21 21:10] LABS: BASO # 0.1 10^3/uL (0.0-0.2); EOS # 0.1 10^3/uL (0.0-0.5); EOS % 1.6 % (0.0-3.0); HEMATOCRIT 45.1 % (42.0-52.0); HEMOGLOBIN 14.3 g/dl (13.5-17.5); LYMPH # 0.8 10^3/uL (1.5-5.0); LYMPH % 11.5 % (24.0-44.0); MEAN CORPUSCULAR HGB CONC 31.7 g/dl (32.0-36.5); MEAN CORPUSCULAR VOLUME 94.5 fl (80.0-96.0); MONO # 1.1 10^3/uL (0.0-0.8); MONO % 15.7 % (2.0-8.0); NEUTROPHILS # 4.9 10^3/uL (1.5-8.5); NEUTROPHILS % 69.6 % (36.0-66.0); PLATELET COUNT, AUTOMATED 236 10^3/uL (150-450); RED BLOOD COUNT 4.77 10^6/uL (4.30-6.10)
[2022-06-21 21:43] LABS: ALBUMIN 3.3 GM/DL (3.2-5.2); BILIRUBIN,DIRECT 0.3 MG/DL (0.0-0.2); BILIRUBIN,TOTAL 0.8 MG/DL (0.2-1.0); CREATININE FOR GFR 2.01 MG/DL (0.70-1.30); GLOMERULAR FILTRATION RATE 35.7 (>49); POTASSIUM SERUM 4.5 MEQ/L (3.5-5.1); TOTAL PROTEIN 8.2 GM/DL (6.4-8.2)
[2022-06-21 21:44] LABS: CPK CREATINE PHOSPHOKINASE 59 U/L (39-308)
[2022-06-21 22:25] VITALS: BP 146/84
[2022-06-22] MEDS ORDERED: NIRMATRELVIR/RITONAVIR (RENAL) CO-PACK (EUA) PO SCH (09:00)
== END 2022-06-21 22:43 | disposition home or self-care (01) ==
LOC: M ED 17:38
DX: U07.1 COVID-19 (principal); I44.0 Atrioventricular block, first degree; I10 Essential (primary) hypertension; Z79.899 Other long term (current) drug therapy; Z79.2 Long term (current) use of antibiotics; Z79.1 Long term (current) use of non-steroidal anti-inflammatories (NSAID)

== ENCOUNTER 2022-09-26 09:54 | Emergency (ER) | payer MEDICARE, OTHER ==
[~2022-09-26] VITALS: Ht 175.3 cm; Wt 114.2 kg
[2022-09-26 10:49] LABS: BASO # 0.1 10^3/uL (0.0-0.2); BASO % 0.6 % (0.0-1.0); EOS # 0.3 10^3/uL (0.0-0.5); EOS % 2.5 % (0.0-3.0); HEMATOCRIT 45.4 % (42.0-52.0); HEMOGLOBIN 14.1 g/dl (13.5-17.5); LYMPH # 1.9 10^3/uL (1.5-5.0); LYMPH % 17.7 % (24.0-44.0); MEAN CORPUSCULAR HEMOGLOBIN 30.1 pg (27.0-33.0); MEAN CORPUSCULAR HGB CONC 31.1 g/dl (32.0-36.5); MEAN CORPUSCULAR VOLUME 96.8 fl (80.0-96.0); MONO % 8.9 % (2.0-8.0); NEUTROPHILS # 7.6 10^3/uL (1.5-8.5); NEUTROPHILS % 69.7 % (36.0-66.0); PLATELET COUNT, AUTOMATED 166 10^3/uL (150-450); RED BLOOD COUNT 4.69 10^6/uL (4.30-6.10); WHITE BLOOD COUNT 10.8 10^3/uL (4.0-10.0)
[2022-09-26 11:12] LABS: LIPASE 66 U/L (12-53)
[2022-09-26 11:13] LABS: BILIRUBIN,DIRECT 0.4 MG/DL (<0.4)
[2022-09-26 11:14] LABS: ALBUMIN 3.3 G/DL (3.2-5.2); ALKALINE PHOSPHATASE 109 U/L (46-116); ALT/SGPT 21 U/L (7.0-40); AST/SGOT 25 U/L (<34); BLOOD UREA NITROGEN 33 MG/DL (9-23); CALCIUM LEVEL 8.6 MG/DL (8.3-10.6); CARBON DIOXIDE LEVEL 24 MMOL/L (20-31); CHLORIDE LEVEL 108 MMOL/L (98-107); CREATININE FOR GFR 1.61 MG/DL (0.70-1.30); GLOMERULAR FILTRATION RATE 46.1 (>49); GLUCOSE, FASTING 96 MG/DL (74-106); POTASSIUM SERUM 4.5 MMOL/L (3.5-5.1); SODIUM LEVEL 141 MMOL/L (136-145); TOTAL PROTEIN 7.6 G/DL (5.7-8.2)
[2022-09-26] MEDS ORDERED: GI COCKTAIL 50ML BTL(HYOSCYAMINE/MAALOX/LIDOCAINE VISCOUS)(1:3:1) PO ONE (12:10)
[2022-09-26 12:27] LABS: CK-MB VALUE MASS < 1.0 NG/ML (<3.6)
[2022-09-26 12:28] LABS: CPK CREATINE PHOSPHOKINASE 61 U/L (46-171); MB/CK RELATIVE INDEX 1.63 (< OR =4)
[2022-09-26 14:00] LABS: CK-MB VALUE MASS < 1.0 NG/ML (<3.6)
[2022-09-26 14:08] LABS: CPK CREATINE PHOSPHOKINASE 71 U/L (46-171)
[2022-09-26] MEDS ORDERED: CARA1TAB6 PO (15:00)
[2022-09-26 15:14] VITALS: BP 177/88
== END 2022-09-26 15:12 | disposition home or self-care (01) ==
LOC: M ED 09:54
DX: K29.70 Gastritis, unspecified, without bleeding (principal); R59.0 Localized enlarged lymph nodes; I73.9 Peripheral vascular disease, unspecified; I44.0 Atrioventricular block, first degree; N18.6 End stage renal disease; K21.9 Gastro-esophageal reflux disease without esophagitis; Z79.899 Other long term (current) drug therapy; Z79.811 Long term (current) use of aromatase inhibitors; Z79.2 Long term (current) use of antibiotics

== ENCOUNTER → 2023-01-18 | Outpatient (CLI) | payer MEDICARE, OTHER | LOC: M PLAIMG 13:58 | PROVIDERS: ATTEND Internal Medicine | DX: R59.0 Localized enlarged lymph nodes (principal); Z85.528 Personal history of other malignant neoplasm of kidney ==

== ENCOUNTER → 2023-01-28 | Outpatient (CLI) | payer MEDICARE, OTHER | LOC: M RAD 10:00 | PROVIDERS: ATTEND Surgery Vascular Surgery | DX: I77.811 Abdominal aortic ectasia (principal) ==

== ENCOUNTER → 2023-05-20 | Outpatient (REF) | payer MEDICARE, OTHER ==
[2023-05-20 13:59] LABS: PERCENT SATURATION 19.4 % (19.7-50.0)
[2023-05-20 14:02] LABS: FERRITIN 101.7 NG/ML (10.5-307.3)
== END ==
LOC: M LAB REF 12:01
PROVIDERS: ATTEND Internal Medicine
DX: D50.9 Iron deficiency anemia, unspecified (principal)

== ENCOUNTER → 2023-08-04 | Outpatient (CLI) | payer MEDICARE, OTHER | LOC: M RAD 08:12 | PROVIDERS: ATTEND Physician Assistant | DX: I71.40 Abdominal aortic aneurysm, without rupture, unspecified (principal) ==

== ENCOUNTER → 2024-06-09 | Outpatient (REF) | payer MEDICARE, OTHER ==
[2024-06-09 18:19] LABS: PERCENT SATURATION 23.9 % (19.7-50.0)
[2024-06-09 18:22] LABS: FERRITIN 145.7 NG/ML (10.5-307.3)
== END ==
LOC: M LAB REF 16:18
PROVIDERS: ATTEND Internal Medicine
DX: D50.9 Iron deficiency anemia, unspecified (principal)

== ENCOUNTER → 2024-10-03 | Outpatient (REF) | payer MEDICARE, OTHER ==
[2024-10-04 18:32] LABS: CREATININE,RANDOM URINE 146.8 MG/DL; TOTAL PROTEIN,RANDOM URINE 214.8 MG/DL (0.0-14.0)
== END ==
LOC: M LAB REF 17:01
PROVIDERS: ATTEND Nurse Practitioner Family
DX: R80.9 Proteinuria, unspecified (principal)

== ENCOUNTER → 2024-12-26 | Outpatient (REF) | payer MEDICARE, OTHER ==
[2024-12-26 13:13] LABS: PERCENT SATURATION 20.7 % (19.7-50.0)
[2024-12-26 13:14] LABS: FERRITIN 276.1 NG/ML (10.5-307.3)
== END ==
LOC: M LAB REF 12:04
PROVIDERS: ATTEND Internal Medicine
DX: D50.9 Iron deficiency anemia, unspecified (principal)

== ENCOUNTER → 2025-01-04 | Outpatient (REF) | payer MEDICARE, OTHER ==
[2025-01-04 18:10] LABS: TOTAL PROTEIN,RANDOM URINE 45.2 MG/DL (0.0-14.0)
[2025-01-04 18:15] LABS: CREATININE,RANDOM URINE 76.8 MG/DL
== END ==
LOC: M LAB REF 17:06
PROVIDERS: ATTEND Nurse Practitioner Family
DX: R80.9 Proteinuria, unspecified (principal)

== ENCOUNTER → 2025-01-17 | Outpatient (CLI) | payer MEDICARE, OTHER | LOC: M RAD 06:36 | PROVIDERS: ATTEND Internal Medicine | DX: R59.0 Localized enlarged lymph nodes (principal) ==

== ENCOUNTER → 2025-06-08 | Outpatient (REF) | payer MEDICARE, OTHER ==
[2025-06-08 15:03] LABS: IRON (FE) 95.0 UG/DL (65-175); PERCENT SATURATION 31.6 % (19.7-50.0)
[2025-06-08 15:09] LABS: VITAMIN B12 LEVEL 422.0 PG/ML (211-911)
== END ==
LOC: M LAB REF 12:00
PROVIDERS: ATTEND Internal Medicine
DX: D50.9 Iron deficiency anemia, unspecified (principal)

== ENCOUNTER → 2025-06-11 | Outpatient (REF) | payer MEDICARE, OTHER | LOC: M LAB REF 11:48 | PROVIDERS: ATTEND Internal Medicine | DX: R31.9 Hematuria, unspecified (principal) ==

== ENCOUNTER → 2025-06-26 | Outpatient (CLI) | payer MEDICARE, OTHER | LOC: M RAD 07:41 | PROVIDERS: ATTEND Internal Medicine | DX: Z85.528 Personal history of other malignant neoplasm of kidney (principal); I80.211 Phlebitis and thrombophlebitis of right iliac vein; N28.1 Cyst of kidney, acquired; I72.3 Aneurysm of iliac artery; Z90.5 Acquired absence of kidney ==

== ENCOUNTER → 2025-08-07 | Outpatient (CLI) | payer MEDICARE, OTHER | LOC: M RAD 09:15 | PROVIDERS: ATTEND Otolaryngology | DX: R59.0 Localized enlarged lymph nodes (principal) ==

== ENCOUNTER → 2025-08-15 | Outpatient (REF) | payer MEDICARE, OTHER ==
[2025-08-15 18:06] LABS: TOTAL PROTEIN,RANDOM URINE 106.0 MG/DL (0.0-14.0)
== END ==
LOC: M LAB REF 17:10
PROVIDERS: ATTEND Nurse Practitioner Family
DX: R80.9 Proteinuria, unspecified (principal)